=== PATIENT | female | born 1955 | race Caucasian/White ===

== ENCOUNTER 2017-05-22 09:59 | Inpatient (IN) | payer MEDICARE ==
[2017-05-22 10:20] VITALS: BMI 30.4
[2017-05-22] MEDS ORDERED: Sodium Chloride 0.9% 1,000 ML IV ONE ×2 (11:00→12:40)
--- NOTE | 2017-05-22 11:25 | C.PDOC ---
History Of Present Illness 61 year old female, with PMHx of diabetes, presents to ED for evaluation of not feeling well for the last 2 days. (+)generalized weakness (+) subjective fever ( +)chills (+)dysuria (+)urinary frequency (+)dizziness. Pt notes that two days ago she "convulsed" for 10 minutes. No LOC, no seizure like activity. Notes she was shaking and then fell asleep. Pt admits to not taking her medications for the past 2 days. Otherwise, denies shortness of breath, abdominal pain, or chest pain. Time Seen by Provider: 05/22/17 10:36 Chief Complaint (Nursing): Weakness/Neurological Deficit History Per: Patient, Family History/Exam Limitations: no limitations Onset/Duration Of Symptoms: Days (2) Current Symptoms Are (Timing): Still Present Additional History Per: Patient Past Medical History Reviewed: Historical Data, Nursing Documentation, Vital Signs Vital Signs: Last Vital Signs Temp 99.6 F 05/22/17 17:15 Pulse 97 H 05/22/17 17:15 Resp 20 05/22/17 17:15 BP 111/71 05/22/17 17:15 Pulse Ox 95 05/22/17 17:15 Surgical History: Cholecystectomy Family History: States: Unknown Family Hx - Social History Hx Alcohol Use: No Hx Substance Use: No - Immunization History Hx Tetanus Toxoid Vaccination: No Hx Influenza Vaccination: No Hx Pneumococcal Vaccination: No Review Of Systems Except As Marked, All Systems Reviewed And Found Negative. Constitutional: Positive for: Fever, Chills, Sweats, Weakness Cardiovascular: Negative for: Chest Pain Respiratory: Negative for: Shortness of Breath Gastrointestinal: Negative for: Abdominal Pain Genitourinary: Positive for: Dysuria, Frequency. Negative for: Hematuria Neurological: Positive for: Dizziness. Negative for: Weakness, Numbness, Headache Physical Exam - Physical Exam Appears: Non-toxic, No Acute Distress, Other (ill appearing) Skin: Normal Color, Warm, Dry Head: Atraumatic, Normacephalic Eye(s): bilateral: Normal Inspection, EOMI Nose: Normal Oral Mucosa: Dry Throat: Normal, No Erythema, No Exudate Neck: Normal ROM, Supple Chest: Symmetrical Cardiovascular: Rhythm Regular, No Murmur Respiratory: Decreased Breath Sounds, No Rales, No Rhonchi, No Wheezing Gastrointestinal/Abdominal: Soft, No Tenderness Extremity: Normal ROM Neurological/Psych: Oriented x3, Normal Speech ED Course And Treatment - Laboratory Results Result Diagrams: 05/22/17 11:49 05/22/17 16:15 ECG: Interpreted By Me, Viewed By Me ECG Rhythm: Sinus Rhythm Interpretation Of ECG: No ST wave elevation Rate From EC (bpm) O2 Sat by Pulse Oximetry: 92 - CT Scan/US Head CT Other Rad Studies (CT/US): Read By Radiologist, Radiology Report Reviewed CT/US Interpretation: Accession No. : [id number]. Patient Name / ID : YURI FRENCH / [id number]. Exam Date : 05/22/2017 14:46:01 ( Approved ). Study Comment : Sex / Age : F / [id number]. Creator : Joshua Humphries MD. Dictator : Green Jobs Trainer : Marble Setter Helper : Joshua Humphries MD. Approver2 : Report Date : 05/22/2017 15:41:49. My Comment : . PROCEDURE: CT HEAD WITHOUT CONTRAST. HISTORY: pain. COMPARISON: None available. TECHNIQUE: Axial computed tomography images were obtained through the head/brain without intravenous contrast. Radiation dose: Total exam DLP = 1294.1 mGy-cm. This CT exam was performed using one or more of the following dose reduction techniques: Automated exposure control, adjustment of the mA and/or kV according to patient size, and/or use of iterative reconstruction technique. FINDINGS: HEMORRHAGE: No acute parenchymal, subarachnoid or extra-axial hemorrhage. BRAIN: Moderate diffuse/ confluent chronic white matter ischemic changes seen extending peripherally into the deep and subcortical white matter both cerebral hemispheres. There is also some extension of these changes into the white matter tracts of both basal ganglia. Prominent appearing pineal gland (measuring nearly 7.4 mm in AP dimension) with slight irregular peripheral borders and central low attenuation possibly representing cystic component. Follow-up of non emergent pre and post-contrast MRI of the brain images. VENTRICLES: Moderate to significant dilatation of the ventricular system; findings may be secondary to central volume loss however possibility of chronic compensated communicating type obstructive hydrocephalus to be excluded. CALVARIUM: There are no acute calvarial fractures. PARANASAL SINUSES: Minor mucosal thickening seen within a few ethmoid air cells and left chamber sphenoid. . MASTOID AIR CELLS: Unremarkable as visualized. No inflammatory changes. OTHER FINDINGS: None. IMPRESSION: No acute intracranial hemorrhage. Moderate chronic white matter ischemic changes with extension into the white matter tracts of both basal nuclei. Moderate to significant ventricular dilatation possibly due to central volume however possibility of chronic compensated communicating type obstructive hydrocephalus to be excluded. Prominent appearing pineal gland with slight irregular peripheral borders. Followup nonemergent pre and post-contrast MRI of the brain could be performed for further evaluation note these findings were discussed with emergency room PILAR Luna at approximately 3:36 p.m. with written down and read back verification. Progress Note: Blood work, head CT, UA, CXR, EKG ordered and reviewed. Patient was given Motrin PO, and IV fluids. Hypoxia noted. Pt denies cough and states she is not SOB. Pt notes that she has no h/o hypoxia, nonsmoker, no h/o copd. CTA not able to be ordered secondary to renal function. Lovenox ordered prophylactically. NAsal cannula- pt 96%. Decreased renal function noted. Pt denies any h.o of kidney problems except "kidney infections.". Case discussed with Dr. Mccullough who evaluated pt at bedside and labs and agreed with plan and treatment. Case discussed with Dr. Charles Jones who agrees upon admission. Disposition - Disposition Disposition: HOSPITALIZED Disposition Time: 17:00 Condition: STABLE - Clinical Impression Clinical Impression: Hypoxia, Pyelonephritis, Dehydration - PA / TRIM CREW SUPERVISOR / Resident Statement MD/DO has reviewed & agrees with the documentation as recorded. - Scribe Statement The provider has reviewed the documentation as recorded by the Scribe Tristen Jones All medical record entries made by the Robb were at my direction and personally dictated by me. I have reviewed the chart and agree that the record accurately reflects my personal performance of the history, physical exam, medical decision making, and the department course for this patient. I have also personally directed, reviewed, and agree with the discharge instructions and disposition.
[2017-05-22] MEDS ORDERED: Sodium Chloride 0.9% 1,000 ML ONE ×2 (11:51→14:04)
[2017-05-22 11:55] LABS: BASO # 0.1 K/uL (0.0-0.2); BASO % 0.8 % (0.0-2.0); HEMATOCRIT 34.3 % (34.0-47.0); LYMPH # 0.9 K/uL (1.0-4.3); LYMPH % 6.4 % (20.0-40.0); MEAN CELL VOLUME 79.1 fL (81.0-99.0); MEAN CORPUSCULAR HEMOGLOBIN 26.1 pg (27.0-31.0); MEAN CORPUSCULAR HGB CONC 32.9 g/dL (33.0-37.0); MEAN PLATELET VOLUME 7.5 fL (7.2-11.7); MONO # 0.7 K/uL (0.0-0.8); MONO % 5.1 % (0.0-10.0); PLATELET COUNT 208 K/uL (130-400); RED CELL DISTRIBUTION WIDTH 15.3 % (11.5-14.5)
[2017-05-22 11:56] LABS: VENOUS BLOOD GAS BASE EXCESS -2.6 mmol/L (0.0-2.0); VENOUS BLOOD GAS PCO2 29 mmHg (40-60); VENOUS BLOOD PH 7.45 (7.32-7.43)
[2017-05-22 12:00] LABS: INR 1.3
[2017-05-22 12:12] LABS: CHLORIDE 99 mmol/L (98-107); POTASSIUM 3.6 mmol/L (3.6-5.2); SODIUM 129 mmol/L (132-148)
[2017-05-22 12:14] LABS: AST/SGOT 31 U/L (14-36); BILIRUBIN,TOTAL 0.6 mg/dL (0.2-1.3); CARBON DIOXIDE 19 mmol/L (22-30); GFR AFRICAN-AMERICAN 46
[2017-05-22 12:15] LABS: ALKALINE PHOSPHATASE 116 U/L (38-126); ALT/SGPT 42 U/L (9-52); BLOOD UREA NITROGEN 25 mg/dL (7-17); GLUCOSE,RANDOM 307 mg/dL (65-105)
[2017-05-22 12:20] LABS: BASOPHIL 1 % (0-2); NEUTROPHIL 86 % (50-75); TOTAL CELLS COUNTED 100
[2017-05-22 13:57] LABS: RBC URINE 21 /hpf (0-3); URINE BACTERIA OCC (<OCC); URINE BILIRUBIN NEGATIVE (NEGATIVE); URINE BLOOD 2+ (NEGATIVE); URINE COLOR Yellow (YELLOW); URINE GLUCOSE (UA) 2+ mg/dL (Normal); URINE KETONE NEGATIVE (NEGATIVE); URINE LEUKOCYTE ESTERASE 3+ Leu/uL (Negative); URINE PROTEIN 2+ mg/dL (NEGATIVE); URINE UROBILINOGEN NORMAL mg/dL (0.2-1.0); WBC URINE 398 /hpf (0-5)
[2017-05-22] MEDS ORDERED: Ciprofloxacin 400mg/200ml D5W 400 MG/200 ML BAG IVPB ONE (14:14)
[2017-05-22] MEDS ORDERED: Ciprofloxacin 400mg/200ml D5W 400 MG/200 ML BAG IV SCH (14:15)
[2017-05-22] MEDS ORDERED: Ciprofloxacin 400mg/200ml D5W 400 MG/200 ML BAG IV ONE (14:15)
--- NOTE | 2017-05-22 14:26 | RAD ---
HISTORY: Sepsis Patient COMPARISON: No prior. FINDINGS: LUNGS: No acute infiltrate identified bilaterally. Inspiratory volume appears limited. PLEURA: No significant pleural effusion identified, no pneumothorax apparent. CARDIOVASCULAR: Cardiomegaly is not excluded. No pulmonary vascular derangement. OSSEOUS STRUCTURES: No significant abnormalities. VISUALIZED UPPER ABDOMEN: Normal. OTHER FINDINGS: None. IMPRESSION: Limited inspiratory volume. No acute infiltrate pleural effusion or pneumothorax identified. Prominent cardiac silhouette without pulmonary vascular derangement.
--- NOTE | 2017-05-22 15:45 | CT ---
PROCEDURE: CT HEAD WITHOUT CONTRAST. HISTORY: pain COMPARISON: None available. TECHNIQUE: Axial computed tomography images were obtained through the head/brain without intravenous contrast. Radiation dose: Total exam DLP = 1294.1 mGy-cm. This CT exam was performed using one or more of the following dose reduction techniques: Automated exposure control, adjustment of the mA and/or kV according to patient size, and/or use of iterative reconstruction technique. FINDINGS: HEMORRHAGE: No acute parenchymal, subarachnoid or extra-axial hemorrhage. BRAIN: Moderate diffuse/ confluent chronic white matter ischemic changes seen extending peripherally into the deep and subcortical white matter both cerebral hemispheres. There is also some extension of these changes into the white matter tracts of both basal ganglia. Prominent appearing pineal gland (measuring nearly 7.4 mm in AP dimension) with slight irregular peripheral borders and central low attenuation possibly representing cystic component. Follow-up of non emergent pre and post-contrast MRI of the brain images. VENTRICLES: Moderate to significant dilatation of the ventricular system; findings may be secondary to central volume loss however possibility of chronic compensated communicating type obstructive hydrocephalus to be excluded. CALVARIUM: There are no acute calvarial fractures. PARANASAL SINUSES: Minor mucosal thickening seen within a few ethmoid air cells and left chamber sphenoid. . MASTOID AIR CELLS: Unremarkable as visualized. No inflammatory changes. OTHER FINDINGS: None. IMPRESSION: No acute intracranial hemorrhage. Moderate chronic white matter ischemic changes with extension into the white matter tracts of both basal nuclei. Moderate to significant ventricular dilatation possibly due to central volume however possibility of chronic compensated communicating type obstructive hydrocephalus to be excluded. Prominent appearing pineal gland with slight irregular peripheral borders. Followup nonemergent pre and post-contrast MRI of the brain could be performed for further evaluation note these findings were discussed with emergency room PILAR Luna at approximately 3:36 p.m. with written down and read back verification.
[2017-05-22 16:31] LABS: POTASSIUM 4.1 mmol/L (3.6-5.2)
[2017-05-22 16:34] LABS: ALB/GLOB RATIO 0.9 (1.0-2.1); BILIRUBIN,TOTAL 0.4 mg/dL (0.2-1.3); CALCIUM 7.5 mg/dl (8.6-10.4); TOTAL PROTEIN 6.2 g/dL (6.3-8.3)
[2017-05-22] MEDS ORDERED: Enoxaparin 80 mg Syringe SC STA (16:56)
[2017-05-22] MEDS ORDERED: Enoxaparin 100 mg Syringe SC STA (17:03)
[2017-05-22 17:12] LABS: ABG ALLEN TEST POS; ARTERIAL BLOOD HGB O2 SAT 94.7 % (95.0-98.0); CARBOXYHEMOGLOBIN 2.4 % (0.5-1.5); DRAW SITE RRA; HHB 1.9 % (0.0-5.0)
[2017-05-22] MEDS ORDERED: Alum-Mag Hydrox-Simethicone Susp (30 mL) PO STA (17:38)
[2017-05-22] MEDS ORDERED: Aluminum Hydroxide/Magnesium Hydroxide Susp (30 mL) ONE (17:47)
[2017-05-22] MEDS: Sodium Chloride 0.9% 1,000 ML IV SCH (20:45)
[2017-05-22] MEDS ORDERED: Cefepime IV 1 gm in Dextrose 1 GM/50 ML BAG IVPB SCH (22:00)
[2017-05-22] MEDS: Aztreonam 1 GM in Sodium Chloride 0.9% 100 ML IVPB SCH (22:37)
[2017-05-22] MEDS: (Novolog) Insulin Aspart, Recombinant 100 u/ml 10 ml vial SC SCH (22:38)
--- NOTE | 2017-05-22 23:42 | CP.PCM.HP ---
Past Patient History - Past Social History Smoking Status: Former Smoker - RENAL Hx Pyelonephritis: Yes - ENDOCRINE/METABOLIC Hx Diabetes Mellitus Type 2: Yes - MUSCULOSKELETAL/RHEUMATOLOGICAL Hx Falls: No - PSYCHIATRIC Hx Substance Use: No - SURGICAL HISTORY Hx Cholecystectomy: Yes - ANESTHESIA Hx Anesthesia: Yes Hx Anesthesia Reactions: No Hx Malignant Hyperthermia: No Has any member of the family had a problem w/ anesthesia?: No Meds Allergies/Adverse Reactions: Allergies Allergy/AdvReac Type Severity Reaction Status Date / Time Penicillins Allergy Severe RASH Verified 05/22/17 10:17 Results - Vital Signs Recent Vital Signs: Last Vital Signs Temp 98.0 F 05/22/17 20:00 Pulse 86 05/22/17 20:00 Resp 20 05/22/17 20:00 BP 108/66 05/22/17 20:00 Pulse Ox 96 05/22/17 20:00 - Labs Result Diagrams: 05/22/17 11:49 05/22/17 16:15 Labs: Laboratory Results - last 24 hr 05/22/17 05/22/17 05/22/17 11:49 11:49 11:49 WBC 14.0 H RBC 4.34 Hgb 11.3 Hct 34.3 MCV 79.1 L MCH 26.1 L MCHC 32.9 L RDW 15.3 H Plt Count 208 MPV 7.5 Neut % (Auto) 87.7 H Lymph % (Auto) 6.4 L [place] % (Auto) 5.1 Eos % (Auto) 0.0 Baso % (Auto) 0.8 Neut # 12.2 H Lymph # 0.9 L [place] # 0.7 Eos # 0.0 Baso # 0.1 Neutrophils % (Manual) 86 H Band Neutrophils % 5 H Lymphocytes % (Manual) 6 L Monocytes % (Manual) 2 Basophils % (Manual) 1 Platelet Estimate Normal Hypochromasia (manual) Slight Poikilocytosis (manual Slight PT 14.7 H INR 1.3 APTT 32 Puncture Site pCO2 pO2 HCO3 ABG pH ABG Total CO2 ABG O2 Saturation ABG Base Excess ABG Hemoglobin ABG Carboxyhemoglobin POC ABG HHb (Measured) ABG Methemoglobin Edmund Test VBG pH VBG pCO2 VBG HCO3 VBG Total CO2 VBG O2 Sat (Calc) VBG Base Excess VBG Potassium A-a O2 Difference Respiratory Index Hgb O2 Saturation Glucose Lactate Liter Flow FiO2 Sodium 129 L Potassium 3.6 Chloride 99 Carbon Dioxide 19 L Anion Gap 15 BUN 25 H Creatinine 1.4 H Est GFR ( Amer) 46 Est GFR (Non-Af Amer) 38 POC Glucose (mg/dL) Random Glucose 307 H Calcium 8.0 L Total Bilirubin 0.6 AST 31 ALT 42 Alkaline Phosphatase 116 Total Protein 7.0 Albumin 3.5 Globulin 3.5 Albumin/Globulin Ratio 1.0 Venous Blood Potassium Urine Color Urine Clarity Urine pH Ur Specific [place] Urine Protein Urine Glucose (UA) Urine Ketones Urine Blood Urine Nitrate Urine Bilirubin Urine Urobilinogen Ur Leukocyte Esterase Urine WBC (Auto) Urine RBC (Auto) Ur Squamous Epith Cells Urine Bacteria Serum Ketones Negative 05/22/17 05/22/17 05/22/17 11:50 13:45 16:15 WBC RBC Hgb Hct MCV MCH MCHC RDW Plt Count MPV Neut % (Auto) Lymph % (Auto) [place] % (Auto) Eos % (Auto) Baso % (Auto) Neut # Lymph # [place] # Eos # Baso # Neutrophils % (Manual) Band Neutrophils % Lymphocytes % (Manual) Monocytes % (Manual) Basophils % (Manual) Platelet Estimate Hypochromasia (manual) Poikilocytosis (manual PT INR APTT Puncture Site pCO2 pO2 51 HCO3 ABG pH ABG Total CO2 ABG O2 Saturation ABG Base Excess ABG Hemoglobin ABG Carboxyhemoglobin POC ABG HHb (Measured) ABG Methemoglobin Edmund Test VBG pH 7.45 H VBG pCO2 29 L VBG HCO3 22.6 VBG Total CO2 21.1 L VBG O2 Sat (Calc) 93.8 H VBG Base Excess -2.6 L VBG Potassium 3.4 L A-a O2 Difference Respiratory Index Hgb O2 Saturation Glucose 323 H Lactate 1.5 Liter Flow FiO2 Sodium 134.0 132 Potassium 4.1 Chloride 103.0 100 Carbon Dioxide 23 Anion Gap 13 BUN 25 H Creatinine 1.5 H Est GFR ( Amer) 43 Est GFR (Non-Af Amer) 35 POC Glucose (mg/dL) Random Glucose 196 H Calcium 7.5 L Total Bilirubin 0.4 AST 24 ALT 37 Alkaline Phosphatase 91 Total Protein 6.2 L Albumin 3.0 L Globulin 3.2 Albumin/Globulin Ratio 0.9 L Venous Blood Potassium 3.4 L Urine Color Yellow Urine Clarity Hazy Urine pH 5.0 Ur Specific [place] 1.016 Urine Protein 2+ H Urine Glucose (UA) 2+ H Urine Ketones Negative Urine Blood 2+ H Urine Nitrate Positive H Urine Bilirubin Negative Urine Urobilinogen Normal Ur Leukocyte Esterase 3+ H Urine WBC (Auto) 398 H Urine RBC (Auto) 21 H Ur Squamous Epith Cells 10 H Urine Bacteria Occ H Serum Ketones 05/22/17 05/22/17 17:08 22:14 WBC RBC Hgb Hct MCV MCH MCHC RDW Plt Count MPV Neut % (Auto) Lymph % (Auto) [place] % (Auto) Eos % (Auto) Baso % (Auto) Neut # Lymph # [place] # Eos # Baso # Neutrophils % (Manual) Band Neutrophils % Lymphocytes % (Manual) Monocytes % (Manual) Basophils % (Manual) Platelet Estimate Hypochromasia (manual) Poikilocytosis (manual PT INR APTT Puncture Site Rra pCO2 31 L pO2 67 L HCO3 23.4 ABG pH 7.45 ABG Total CO2 22.5 ABG O2 Saturation 98.0 ABG Base Excess -1.9 ABG Hemoglobin 9.9 L ABG Carboxyhemoglobin 2.4 H POC ABG HHb (Measured) 1.9 ABG Methemoglobin 1.0 Edmund Test Pos VBG pH VBG pCO2 VBG HCO3 VBG Total CO2 VBG O2 Sat (Calc) VBG Base Excess VBG Potassium A-a O2 Difference 44.0 Respiratory Index 0.7 Hgb O2 Saturation 94.7 L Glucose Lactate Liter Flow 0 FiO2 21.0 Sodium Potassium Chloride Carbon Dioxide Anion Gap BUN Creatinine Est GFR ( Amer) Est GFR (Non-Af Amer) POC Glucose (mg/dL) 255 H Random Glucose Calcium Total Bilirubin AST ALT Alkaline Phosphatase Total Protein Albumin Globulin Albumin/Globulin Ratio Venous Blood Potassium Urine Color Urine Clarity Urine pH Ur Specific [place] Urine Protein Urine Glucose (UA) Urine Ketones Urine Blood Urine Nitrate Urine Bilirubin Urine Urobilinogen Ur Leukocyte Esterase Urine WBC (Auto) Urine RBC (Auto) Ur Squamous Epith Cells Urine Bacteria Serum Ketones
[2017-05-23] MEDS: Aztreonam 1 GM in Sodium Chloride 0.9% 100 ML IVPB SCH ×3 (05:30→22:26)
[2017-05-23] MEDS: (Novolog) Insulin Aspart, Recombinant 100 u/ml 10 ml vial SC SCH ×4 (08:28→22:27)
[2017-05-23] MEDS: Pantoprazole 40 mg EC Tab PO SCH (09:40)
[2017-05-23] MEDS ORDERED: Enoxaparin 100 mg Syringe SC SCH (10:00)
[2017-05-23] MEDS ORDERED: Gentamicin 80 mg in 0.9% NS 80 MG/100 ML BAG IVPB ONE (13:05)
--- NOTE | 2017-05-23 14:52 | CP.PCM.PN ---
Subjective - Date & Time of Evaluation Date of Evaluation: 05/23/17 Time of Evaluation: 08:40 - Subjective Subjective: clinically same Objective - Vital Signs/Intake and Output Vital Signs (last 24 hours): Temp Pulse Resp BP Pulse Ox 98.1 F 92 H 20 139/75 98 05/23/17 08:00 05/23/17 08:00 05/23/17 08:00 05/23/17 08:00 05/23/17 08:00 Intake and Output: 05/23/17 05/23/17 06:59 18:59 Intake Total 950 1000 Balance 950 1000 - Medications Medications: Current Medications Acetaminophen (Tylenol 325mg Tab) 650 mg PO Q4 PRN PRN Reason: Fever >100.4 F Enoxaparin Sodium (Lovenox) 90 mg SC DAILY [facility] Last Admin: 05/23/17 09:40 Dose: 90 mg Aztreonam 1 gm/ Sodium (Chloride) 100 mls @ 100 mls/hr IVPB Q8H [facility] Last Admin: 05/23/17 14:49 Dose: 100 mls/hr Sodium Chloride (Sodium Chloride 0.9%) 1,000 mls @ 50 mls/hr IV .Q20H [facility] Last Admin: 05/22/17 20:45 Dose: 50 mls/hr Insulin Aspart (Novolog) 0 unit SC ACHS [facility] PRN Reason: Protocol Last Admin: 05/23/17 12:30 Dose: 4 unit Pantoprazole Sodium (Protonix Ec Tab) 40 mg PO DAILY [facility] Last Admin: 05/23/17 09:40 Dose: 40 mg Pneumococcal Polyvalent Vaccine (Pneumovax 23 Vaccine) 0.5 ml IM .ONCE ONE Stop: 05/24/17 10:01 - Labs Labs: 05/22/17 11:49 05/22/17 16:15 PT 14.7 SECONDS (9.7-12.2) H 05/22/17 11:49 INR 1.3 05/22/17 11:49 APTT 32 SECONDS (21-34) 05/22/17 11:49 Assessment and Plan - Assessment and Plan (Free Text) Plan: IV antibiotic continue ID consult as ordered the patient has gram-negative bacilli in the blood ID is pending Continue IV antibiotic Spoke with the patient at length about low oxygenation of around 92-93% last night patient to be seen by pulmonary for possible VQ scan clinically does not appear to have a pulmonary embolism Continue Lovenox Continue IV antibiotic Awaiting identification of organism and culture sensitivity
--- NOTE | 2017-05-23 15:44 | NM ---
EXAM: NM Lung Perfusion and Ventilation Scan EXAM DATE/TIME: 05/23/2017 1:44 PM CLINICAL HISTORY: 61 years old, female; Signs and symptoms; Shortness of breath; Additional info: SOB, R/O pe TECHNIQUE: Nuclear Medicine ventilation and perfusion images of the lungs were obtained in multiple projections following inhalation of 6.8 mCi xenon-133 and injection of 31 mCi Tc99m MAA. COMPARISON: No relevant prior studies available. FINDINGS: Ventilation: Unremarkable. No ventilation defects. No abnormal air trapping. Perfusion: Unremarkable. No segmental or subsegmental perfusion defects. IMPRESSION: No evidence of pulmonary embolism.
--- NOTE | 2017-05-23 16:25 | CP.PCM.CON ---
History of Present Illness - History of Present Illness History of Present Illness: reason for consultation: hypoxemia Patient is 61-year-old female with history of obstructive sleep apnea, long history of smoking/COPD, diabetes who presented to emergency room complaining of generalized weakness, fever/chills, urinary frequency and dysuria. Patient started on IV antibiotics for pyelonephritis. Denies shortness of breath, denies cough, denies chest pain. Patient has history off obstructive sleep apnea , but does not use CPAP at night. Complaining of nocturnal snoring and excessive sleepiness during the daytime Review of Systems - Review of Systems All systems: reviewed and no additional remarkable complaints except (nocturnal snoring, dysuria and generalized weakness) Past Patient History - Past Social History Smoking Status: Former Smoker - RENAL Hx Pyelonephritis: Yes - ENDOCRINE/METABOLIC Hx Diabetes Mellitus Type 2: Yes - MUSCULOSKELETAL/RHEUMATOLOGICAL Hx Falls: No - PSYCHIATRIC Hx Substance Use: No - SURGICAL HISTORY Hx Cholecystectomy: Yes - ANESTHESIA Hx Anesthesia: Yes Hx Anesthesia Reactions: No Hx Malignant Hyperthermia: No Has any member of the family had a problem w/ anesthesia?: No Meds Allergies/Adverse Reactions: Allergies Allergy/AdvReac Type Severity Reaction Status Date / Time Penicillins Allergy Severe RASH Verified 05/22/17 10:17 - Medications Medications: Current Medications Acetaminophen (Tylenol 325mg Tab) 650 mg PO Q4 PRN PRN Reason: Fever >100.4 F Enoxaparin Sodium (Lovenox) 90 mg SC DAILY [facility] Last Admin: 05/23/17 09:40 Dose: 90 mg Aztreonam 1 gm/ Sodium (Chloride) 100 mls @ 100 mls/hr IVPB Q8H [facility] Last Admin: 05/23/17 14:49 Dose: 100 mls/hr Sodium Chloride (Sodium Chloride 0.9%) 1,000 mls @ 50 mls/hr IV .Q20H [facility] Last Admin: 05/22/17 20:45 Dose: 50 mls/hr Insulin Aspart (Novolog) 0 unit SC ACHS [facility] PRN Reason: Protocol Last Admin: 05/23/17 12:30 Dose: 4 unit Pantoprazole Sodium (Protonix Ec Tab) 40 mg PO DAILY [facility] Last Admin: 05/23/17 09:40 Dose: 40 mg Pneumococcal Polyvalent Vaccine (Pneumovax 23 Vaccine) 0.5 ml IM .ONCE ONE Stop: 05/24/17 10:01 Physical Exam - Head Exam Head Exam: ATRAUMATIC, NORMOCEPHALIC - Eye Exam Eye Exam: Normal appearance - ENT Exam ENT Exam: Mucous Membranes Moist - Neck Exam Neck exam: Positive for: Normal Inspection - Respiratory Exam Respiratory Exam: Clear to Auscultation Bilateral - Cardiovascular Exam Cardiovascular Exam: REGULAR RHYTHM - GI/Abdominal Exam GI & Abdominal Exam: Normal Bowel Sounds - Extremities Exam Extremities exam: Positive for: normal inspection - Neurological Exam Neurological exam: Alert, Oriented x3 Results - Vital Signs Recent Vital Signs: Last Vital Signs Temp 98.1 F 05/23/17 08:00 Pulse 92 H 05/23/17 08:00 Resp 20 05/23/17 08:00 BP 139/75 05/23/17 08:00 Pulse Ox 98 05/23/17 08:00 - Labs Result Diagrams: 05/22/17 11:49 05/22/17 16:15 Labs: Laboratory Results - last 24 hr 05/22/17 05/22/17 05/22/17 16:15 17:08 22:14 Puncture Site Rra pCO2 31 L pO2 67 L HCO3 23.4 ABG pH 7.45 ABG Total CO2 22.5 ABG O2 Saturation 98.0 ABG Base Excess -1.9 ABG Hemoglobin 9.9 L ABG Carboxyhemoglobin 2.4 H POC ABG HHb (Measured) 1.9 ABG Methemoglobin 1.0 Edmund Test Pos A-a O2 Difference 44.0 Respiratory Index 0.7 Hgb O2 Saturation 94.7 L Liter Flow 0 FiO2 21.0 Sodium 132 Potassium 4.1 Chloride 100 Carbon Dioxide 23 Anion Gap 13 BUN 25 H Creatinine 1.5 H Est GFR ( Amer) 43 Est GFR (Non-Af Amer) 35 POC Glucose (mg/dL) 255 H Random Glucose 196 H Calcium 7.5 L Total Bilirubin 0.4 AST 24 ALT 37 Alkaline Phosphatase 91 Total Protein 6.2 L Albumin 3.0 L Globulin 3.2 Albumin/Globulin Ratio 0.9 L 05/23/17 05/23/17 05/23/17 07:40 09:54 11:45 Puncture Site pCO2 pO2 HCO3 ABG pH ABG Total CO2 ABG O2 Saturation ABG Base Excess ABG Hemoglobin ABG Carboxyhemoglobin POC ABG HHb (Measured) ABG Methemoglobin Edmund Test A-a O2 Difference Respiratory Index Hgb O2 Saturation Liter Flow FiO2 Sodium Potassium Chloride Carbon Dioxide Anion Gap BUN Creatinine Est GFR ( Amer) Est GFR (Non-Af Amer) POC Glucose (mg/dL) 202 H 339 H 268 H Random Glucose Calcium Total Bilirubin AST ALT Alkaline Phosphatase Total Protein Albumin Globulin Albumin/Globulin Ratio Assessment & Plan (1) BECKY and COPD overlap syndrome Status: Acute Comment: patient with long history of smoking, COPD and obstructive sleep apnea is the reason for hypoxemia. Patient noncompliant with medicines. Start nebulizer treatment. CPAP at night. Continue antibiotics for pyelonephrit (2) Pyelonephritis Status: Acute
[2017-05-23] MEDS: Sodium Chloride 0.9% 1,000 ML IV SCH (16:50)
[2017-05-23] MEDS: Albuterol-Ipratrop 3 mg / 0.5 (3 ml) UD INH SCH (20:05)
[2017-05-23] MEDS ORDERED: Cefepime 1 GM in Sodium Chloride 0.9% 50 ML IVPB SCH (22:00)
[2017-05-24] MEDS: Albuterol-Ipratrop 3 mg / 0.5 (3 ml) UD INH SCH ×4 (02:07→20:24)
[2017-05-24] MEDS: Sodium Chloride 0.9% 1,000 ML IV SCH ×2 (02:55→13:56)
[2017-05-24] MEDS: Aztreonam 1 GM in Sodium Chloride 0.9% 100 ML IVPB SCH ×3 (06:25→21:26)
[2017-05-24 07:58] LABS: BASO % 0.5 % (0.0-2.0); EOS # 0.1 K/uL (0.0-0.7); EOS % 1.2 % (0.0-4.0); HEMATOCRIT 29.9 % (34.0-47.0); LYMPH # 0.7 K/uL (1.0-4.3); LYMPH % 14.2 % (20.0-40.0); MEAN CELL VOLUME 78.6 fL (81.0-99.0); MEAN CORPUSCULAR HEMOGLOBIN 26.5 pg (27.0-31.0); MEAN CORPUSCULAR HGB CONC 33.7 g/dL (33.0-37.0); MEAN PLATELET VOLUME 8.1 fL (7.2-11.7); MONO # 0.4 K/uL (0.0-0.8); MONO % 8.7 % (0.0-10.0); RED CELL DISTRIBUTION WIDTH 15.4 % (11.5-14.5)
[2017-05-24 08:03] LABS: WHITE BLOOD COUNT 4.9 K/uL (4.8-10.8)
[2017-05-24 08:21] LABS: POTASSIUM 4.3 mmol/L (3.6-5.2)
[2017-05-24 08:25] LABS: CALCIUM 7.8 mg/dl (8.6-10.4)
[2017-05-24] MEDS: (Novolog) Insulin Aspart, Recombinant 100 u/ml 10 ml vial SC SCH ×4 (08:30→21:56)
[2017-05-24] MEDS ORDERED: Pneumococcal 23-Valent Vaccine IM ONE (10:00)
[2017-05-24] MEDS ORDERED: Influenza Vaccine 60 mcg/0.5 mL SYR (4YR UP) IM ONE (10:00)
[2017-05-24] MEDS: Pantoprazole 40 mg EC Tab PO SCH (10:38)
[2017-05-24] MEDS: Enoxaparin 40 mg Syringe SC SCH (10:38)
--- NOTE | 2017-05-24 15:37 | CP.PCM.CON ---
History of Present Illness - History of Present Illness History of Present Illness: 61 year old female, with PMHx of diabetes, presents to ED for evaluation of not feeling well for the last 2 days. (+)generalized weakness (+) subjective fever ( +)chills (+)dysuria (+)urinary frequency (+)dizziness. Pt notes that two days ago she "convulsed" for 10 minutes. No LOC, no seizure like activity. Notes she was shaking and then fell asleep. Pt admits to not taking her medications for the past 2 days. Otherwise, denies shortness of breath, abdominal pain, or chest pain. referred for ID eval odf urosepsis PCN allergy PMH - DM COPD DEPRESSION BECKY SH- Cholecystectomy Review of Systems - Constitutional Constitutional: As Per HPI, Chills, Fever - EENT Eyes: absent: As Per HPI, Blind Spots, Blurred Vision, Change in Vision, Decreased Night Vision, Diplopia, Discharge, Dry Eye, Exophthalmos, Floaters, Irritation, Itchy Eyes, Loss of Peripheral Vision, Pain, Photophobia, Requires Corrective Lenses, Sees Flashes, Spots in Vision, Tunnel Vision, Other Visual Disturbances, Loss of Vision, Other Ears: absent: As Per HPI, Decreased Hearing, Ear Discharge, Ear Pain, Tinnitus, Abnormal Hearing, Disequilibrium, Dizziness, Other Nose/Mouth/Throat: absent: As Per HPI, Epistaxis, Nasal Congestion, Nasal Discharge, Nasal Obstruction, Nasal Trauma, Nose Pain, Post Nasal Drip, Sinus Pain, Sinus Pressure, Bleeding Gums, Change in Voice, Dental Pain, Dry Mouth, Dysphagia, Halitosis, Hoarsness, Lip Swelling, Mouth Lesions, Mouth Pain, Odynophagia, Sore Throat, Throat Swelling, Tongue Swelling, Facial Pain, Neck Pain, Neck Mass, Other - Cardiovascular Cardiovascular: absent: As Per HPI, Acrocyanosis, Chest Pain, Chest Pain at Rest , Chest Pain with Activity, Claudication, Diaphoresis, Dyspnea, Dyspnea on Exertion, Edema, Irregular Heart Rhythm, Pain Radiating to Arm/Neck/Jaw, Leg Edema, Leg Ulcers, Lightheadedness, Orthopnea, Palpitations, Paroxysmal Nocturnal Dyspnea, Pedal Edema, Radiating Pain, Rapid Heart Rate, Slow Heart Rate, Syncope, Other - Respiratory Respiratory: As Per HPI - Gastrointestinal Gastrointestinal: absent: As Per HPI, Abdominal Pain, Belching, Bloating, Change in Bowel Habits, Change in Stool Character, Coffee Ground Emesis, Constipation, Cramping, Diarrhea, Dyspepsia, Dysphagia, Early Satiety, Excessive Flatus, Fecal Incontinence, Heartburn, Hematemesis, Hematochezia, Loose Stools, Melena, Nausea, Odynophagia, Temesmus, Vomiting, Other - Genitourinary Genitourinary: As Per HPI - Reproductive: Female Reproductive:Female: absent: As Per HPI, Amenorrhea, Amenorrhea/ Control, Currently Menstual, Cycle <21 Days, Cycle >35 Days, Cycle Variable, Menses 1-7 Days, Menses >/= 8 Days, Menses Variable, Cycle > 4 Weeks Between, No Menses for 6 Months, Heavy Menses, Light Menses, Normal Menses, Spotting Between Cycles , S/P Hysterectomy, Menopausal, Post Menopausal, Premenarche, Abnormal Vaginal Bleeding, Dysmenorrhea, Dyspareunia, Genital Lesions, Genital Pruritis, Pelvic Pain, Prolapse Symptoms, Sexual Dysfunction, Vaginal Discharge, Vaginal Dryness , Vaginal Odor, Vaginal Pruritis, Other - Menstruation Menstruation: absent: As Per HPI, Amenorrhea, Amenorrhea/ Control, Currently Menstual, Cycle <21 Days, Cycle >35 Days, Cycle Variable, Menses 1-7 Days, Menses >/= 8 Days, Menses Variable, Cycle > 4 Weeks Between, No Menses for 6 Months, Heavy Menses, Light Menses, Normal Menses, Spotting Between Cycles , S/P Hysterectomy, Menopausal, Post Menopausal, Premenarche, Abnormal Vaginal Bleeding, Dysmenorrhea, Other - Musculoskeletal Musculoskeletal: absent: As Per HPI, Abnormal Gait, Arthralgias, Atrophy, Back Pain, Deformity, Joint Swelling, Limited Range of Motion, Loss of Height, Muscle Cramps, Muscle Weakness, Myalgias, Neck Pain, Numbness, Radiating Pain into Limb, Stiffness, Tingling, Other - Integumentary Integumentary: absent: As Per HPI, Acne, Alopecia, Bleeding Lesions, Change in Hair, Change in Nails, Change in Pigmentation, Changing Lesions, Dry Skin, Erythema, Furuncle, Hirsutism, Lesions, New Lesions, Non-Healing Lesions, Photosensitivity, Pruritus, Rash, Skin Pain, Skin Ulcer, Sores, Striae, Swelling , Unusual Bruising, Wounds, Jaundice, Other - Neurological Neurological: absent: As Per HPI, Abnormal Gait, Abnormal Hearing, Abnormal Movements, Abnormal Speech, Behavioral Changes, Burning Sensations, Confusion, Convulsions, Disequilibrium, Dizziness, Numbness, Focal Weakness, Frequent Falls , Headaches, Lack of Coordination, Loss of Vision, Memory Loss, Paresthesias, Radicular Pain, Restless Legs, Sensory Deficit, Syncope, Tingling, Tremor, Vertigo, Weakness, Other Visual Disturbances, Other - Psychiatric Psychiatric: absent: As Per HPI, Abnormal Sleep Pattern, Anhedonia, Anxiety, Auditory Hallucinations, Behavioral Changes, Change in Appetite, Change in Libido, Confusion, Depression, Difficulty Concentrating, Hallucinations, Homicidal Ideation, Hopelessness, Irritability, Memory Loss, Mood Swings, Panic Attacks, Paranoia, Suicidal Ideation, Visual Hallucinations, Tactile Hallucinations, Other - Endocrine Endocrine: absent: As Per HPI, Change in Body Appearance, Change in Libido, Cold Intolorance, Deepening of Voice, Excessive Sweating, Fatigue, Flushing, Heat Intolorance, Increase in Ring/Shoe/Hat Size, Palpitations, Polydipsia, Polyphagia, Polyuria, Other - Hematologic/Lymphatic Hematologic: absent: As Per HPI, Easy Bleeding, Easy Bruising, Lymphadenopathy, Other Past Patient History - Past Social History Smoking Status: Former Smoker - RENAL Hx Pyelonephritis: Yes - ENDOCRINE/METABOLIC Hx Diabetes Mellitus Type 2: Yes - MUSCULOSKELETAL/RHEUMATOLOGICAL Hx Falls: No - PSYCHIATRIC Hx Substance Use: No - SURGICAL HISTORY Hx Cholecystectomy: Yes - ANESTHESIA Hx Anesthesia: Yes Hx Anesthesia Reactions: No Hx Malignant Hyperthermia: No Has any member of the family had a problem w/ anesthesia?: No Meds Allergies/Adverse Reactions: Allergies Allergy/AdvReac Type Severity Reaction Status Date / Time Penicillins Allergy Severe RASH Verified 05/22/17 10:17 - Medications Medications: Current Medications Acetaminophen (Tylenol 325mg Tab) 650 mg PO Q4 PRN PRN Reason: Fever >100.4 F Last Admin: 05/24/17 14:11 Dose: 650 mg Albuterol/Ipratropium (Duoneb 3 Mg/0.5 Mg (3 Ml) Ud) 3 ml INH RQ6 [facility] Last Admin: 05/24/17 13:32 Dose: 3 ml Enoxaparin Sodium (Lovenox) 40 mg SC DAILY [facility] Last Admin: 05/24/17 10:38 Dose: 40 mg Aztreonam 1 gm/ Sodium (Chloride) 100 mls @ 100 mls/hr IVPB Q8H [facility] Last Admin: 05/24/17 13:59 Dose: 100 mls/hr Sodium Chloride (Sodium Chloride 0.9%) 1,000 mls @ 50 mls/hr IV .Q20H [facility] Last Admin: 05/24/17 13:56 Dose: Not Given Insulin Aspart (Novolog) 0 unit SC ACHS [facility] PRN Reason: Protocol Last Admin: 05/24/17 12:19 Dose: 3 unit Pantoprazole Sodium (Protonix Ec Tab) 40 mg PO DAILY [facility] Last Admin: 05/24/17 10:38 Dose: 40 mg Physical Exam - Constitutional Appears: Toxic, Chronically Ill - Head Exam Head Exam: ATRAUMATIC, NORMAL INSPECTION, NORMOCEPHALIC - Eye Exam Eye Exam: EOMI, PERRL. absent: Scleral icterus - ENT Exam ENT Exam: Mucous Membranes Dry, Normal External Ear Exam, Normal Oropharynx - Neck Exam Neck exam: Negative for: Lymphadenopathy, Thyromegaly - Respiratory Exam Respiratory Exam: Decreased Breath Sounds, Rhonchi - Cardiovascular Exam Cardiovascular Exam: REGULAR RHYTHM, +S1, +S2 - Rectal Exam Rectal Exam: Deferred - Exam Exam: NORMAL INSPECTION - Extremities Exam Extremities exam: Negative for: pedal edema - Back Exam Back exam: absent: CVA tenderness (L), CVA tenderness (R), paraspinal tenderness - Neurological Exam Neurological exam: Alert, CN II-XII Intact, Oriented x3, Reflexes Normal - Psychiatric Exam Psychiatric exam: Normal Mood - Skin Skin Exam: Dry Results - Vital Signs Recent Vital Signs: Last Vital Signs Temp 100.8 F H 05/24/17 14:10 Pulse 103 H 05/24/17 14:10 Resp 22 05/24/17 14:10 BP 161/94 H 05/24/17 14:10 Pulse Ox 93 L 05/24/17 14:10 - Labs Result Diagrams: 05/24/17 07:47 05/24/17 07:47 Labs: Laboratory Results - last 24 hr 05/23/17 05/23/17 05/24/17 16:25 21:13 07:47 WBC 4.9 D RBC 3.80 Hgb 10.1 L Hct 29.9 L MCV 78.6 L MCH 26.5 L MCHC 33.7 RDW 15.4 H Plt Count 171 MPV 8.1 Neut % (Auto) 75.4 H Lymph % (Auto) 14.2 L [place] % (Auto) 8.7 Eos % (Auto) 1.2 Baso % (Auto) 0.5 Neut # 3.7 Lymph # 0.7 L [place] # 0.4 Eos # 0.1 Baso # 0.0 Sodium Potassium Chloride Carbon Dioxide Anion Gap BUN Creatinine Est GFR ( Amer) Est GFR (Non-Af Amer) POC Glucose (mg/dL) 159 H 134 H Random Glucose Calcium 05/24/17 05/24/17 05/24/17 07:47 07:59 10:54 WBC RBC Hgb Hct MCV MCH MCHC RDW Plt Count MPV Neut % (Auto) Lymph % (Auto) [place] % (Auto) Eos % (Auto) Baso % (Auto) Neut # Lymph # [place] # Eos # Baso # Sodium 132 Potassium 4.3 Chloride 102 Carbon Dioxide 22 Anion Gap 13 BUN 19 H Creatinine 1.3 H Est GFR ( Amer) 50 Est GFR (Non-Af Amer) 42 POC Glucose (mg/dL) 168 H 234 H Random Glucose 148 H Calcium 7.8 L 05/24/17 14:13 WBC RBC Hgb Hct MCV MCH MCHC RDW Plt Count MPV Neut % (Auto) Lymph % (Auto) [place] % (Auto) Eos % (Auto) Baso % (Auto) Neut # Lymph # [place] # Eos # Baso # Sodium Potassium Chloride Carbon Dioxide Anion Gap BUN Creatinine Est GFR ( Amer) Est GFR (Non-Af Amer) POC Glucose (mg/dL) 147 H Random Glucose Calcium Assessment & Plan (1) Dehydration Status: Acute (2) Hypoxia Status: Acute (3) BECKY and COPD overlap syndrome Status: Acute (4) Pyelonephritis Status: Acute - Assessment and Plan (Free Text) Assessment: cont iv rx for now check renal US cont iv rx
--- NOTE | 2017-05-24 17:06 | CP.PCM.PN ---
Subjective - Date & Time of Evaluation Date of Evaluation: 05/24/17 Time of Evaluation: 07:20 - Subjective Subjective: clinically same Objective - Vital Signs/Intake and Output Vital Signs (last 24 hours): Temp Pulse Resp BP Pulse Ox 101.5 F H 109 H 20 137/81 95 05/24/17 16:00 05/24/17 16:00 05/24/17 16:00 05/24/17 16:00 05/24/17 16:00 Intake and Output: 05/24/17 05/24/17 06:59 18:59 Intake Total 1560 Balance 1560 - Medications Medications: Current Medications Acetaminophen (Tylenol 325mg Tab) 650 mg PO Q4 PRN PRN Reason: Fever >100.4 F Last Admin: 05/24/17 14:11 Dose: 650 mg Albuterol/Ipratropium (Duoneb 3 Mg/0.5 Mg (3 Ml) Ud) 3 ml INH RQ6 [facility] Last Admin: 05/24/17 13:32 Dose: 3 ml Enoxaparin Sodium (Lovenox) 40 mg SC DAILY [facility] Last Admin: 05/24/17 10:38 Dose: 40 mg Aztreonam 1 gm/ Sodium (Chloride) 100 mls @ 100 mls/hr IVPB Q8H [facility] Last Admin: 05/24/17 13:59 Dose: 100 mls/hr Sodium Chloride (Sodium Chloride 0.9%) 1,000 mls @ 50 mls/hr IV .Q20H [facility] Last Admin: 05/24/17 13:56 Dose: Not Given Insulin Aspart (Novolog) 0 unit SC ACHS [facility] PRN Reason: Protocol Last Admin: 05/24/17 12:19 Dose: 3 unit Pantoprazole Sodium (Protonix Ec Tab) 40 mg PO DAILY [facility] Last Admin: 05/24/17 10:38 Dose: 40 mg - Labs Labs: 05/24/17 07:47 05/24/17 07:47 PT 14.7 SECONDS (9.7-12.2) H 05/22/17 11:49 INR 1.3 05/22/17 11:49 APTT 32 SECONDS (21-34) 05/22/17 11:49 - Constitutional Appears: Well - Head Exam Head Exam: ATRAUMATIC, NORMAL INSPECTION, NORMOCEPHALIC - Eye Exam Eye Exam: EOMI, Normal appearance, PERRL Pupil Exam: NORMAL ACCOMODATION, PERRL - ENT Exam ENT Exam: Mucous Membranes Moist, Normal Exam - Neck Exam Neck Exam: Full ROM, Normal Inspection. absent: Lymphadenopathy - Respiratory Exam Respiratory Exam: Decreased Breath Sounds - Cardiovascular Exam Cardiovascular Exam: REGULAR RHYTHM, +S1, +S2 - GI/Abdominal Exam GI & Abdominal Exam: Soft, Diminished Bowel Sounds - Rectal Exam Rectal Exam: Deferred
[2017-05-24] MEDS ORDERED: Aluminum Hydroxide/Magnesium Hydroxide Susp (30 mL) PO PRN (22:00)
[2017-05-25] MEDS: Albuterol-Ipratrop 3 mg / 0.5 (3 ml) UD INH SCH ×4 (01:54→19:38)
[2017-05-25] MEDS: Aztreonam 1 GM in Sodium Chloride 0.9% 100 ML IVPB SCH ×3 (05:23→21:46)
[2017-05-25] MEDS: Sodium Chloride 0.9% 1,000 ML IV SCH ×2 (05:23→10:29)
[2017-05-25] MEDS: (Novolog) Insulin Aspart, Recombinant 100 u/ml 10 ml vial SC SCH ×4 (08:00→21:46)
--- NOTE | 2017-05-25 09:29 | US ---
HISTORY: pyelonephritis COMPARISON: None. TECHNIQUE: Sonographic evaluation of the abdomen. FINDINGS: LIVER: Measures 17.4 cm. Diffusely increased echogenicity of the liver parenchyma. Consistent with fatty infiltration. No mass. No intrahepatic bile duct dilatation. GALLBLADDER: Status post cholecystectomy COMMON BILE DUCT: Measures 5 mm. No stones. No dilatation. PANCREAS: Unremarkable as visualized. No mass. No ductal dilatation. RIGHT KIDNEY: Measures 12.4cm. Normal echogenicity. No calculus, mass, or hydronephrosis. LEFT KIDNEY: Measures 13.6cm. Normal echogenicity. No calculus, mass, or hydronephrosis. SPLEEN: 13.7 cm. Minimally enlarged. No focal mass. AORTA: No aneurysmal dilatation. IVC: Unremarkable. OTHER FINDINGS: None. IMPRESSION: Status post cholecystectomy. Minimal splenomegaly. Fatty infiltration of the liver.
[2017-05-25] MEDS: Enoxaparin 40 mg Syringe SC SCH (10:31)
[2017-05-25] MEDS: Pantoprazole 40 mg EC Tab PO SCH (10:31)
[2017-05-25] MEDS ORDERED: Benzocaine/Menthol (Cepacol) Lozenge MT PRN (11:06)
--- NOTE | 2017-05-25 11:08 | CP.PCM.PN ---
<Tiff Concepcion - Last Filed: 05/25/17 12:00> Subjective - Date & Time of Evaluation Date of Evaluation: 05/25/17 Time of Evaluation: 09:00 - Subjective Subjective: Pulmonology Note for Dr. Salgado's Service Patient was seen and examined at bedside. Patient reported she did not have SOB when ambulating or walking to the bathroom. She reports she had a sleep study done at [facility] 5 years ago, showing she had BECKY, requiring a CPAP. She refuses to wear the mask. She reports weakness. chronic fatigue, and difficulty sleeping at night. Currently no SOB, Denied fever, chills, headache, chest pain , SOB, cough abdominal pain, n/v/d/c, or urinary symptoms. Objective - Vital Signs/Intake and Output Vital Signs (last 24 hours): Temp Pulse Resp BP Pulse Ox 98.3 F 76 20 139/75 98 05/25/17 08:13 05/25/17 08:13 05/25/17 08:13 05/25/17 08:13 05/25/17 08:13 Intake and Output: 05/25/17 05/25/17 06:59 18:59 Intake Total 1300 Balance 1300 - Medications Medications: Current Medications Acetaminophen (Tylenol 325mg Tab) 650 mg PO Q4 PRN PRN Reason: Fever >100.4 F Last Admin: 05/24/17 14:11 Dose: 650 mg Al Hydrox/Mg Hydrox/Simethicone (Maalox 30 Ml) 30 ml PO Q6H PRN PRN Reason: Indigestion / Heartburn Last Admin: 05/24/17 21:54 Dose: 30 ml Albuterol/Ipratropium (Duoneb 3 Mg/0.5 Mg (3 Ml) Ud) 3 ml INH RQ6 [facility] Last Admin: 05/25/17 01:54 Dose: 3 ml Benzocaine/Menthol (Cepacol Sore Throat) 1 sahra MT QID PRN PRN Reason: Sore Throat Enoxaparin Sodium (Lovenox) 40 mg SC DAILY [facility] Last Admin: 05/25/17 10:31 Dose: 40 mg Aztreonam 1 gm/ Sodium (Chloride) 100 mls @ 100 mls/hr IVPB Q8H [facility] Last Admin: 05/25/17 05:23 Dose: 100 mls/hr Sodium Chloride (Sodium Chloride 0.9%) 1,000 mls @ 50 mls/hr IV .Q20H [facility] Last Admin: 05/25/17 10:29 Dose: Not Given Insulin Aspart (Novolog) 0 unit SC ACHS [facility] PRN Reason: Protocol Last Admin: 05/25/17 08:00 Dose: Not Given Pantoprazole Sodium (Protonix Ec Tab) 40 mg PO DAILY [facility] Last Admin: 05/25/17 10:31 Dose: 40 mg - Labs Labs: 05/24/17 07:47 05/24/17 07:47 PT 14.7 SECONDS (9.7-12.2) H 05/22/17 11:49 INR 1.3 05/22/17 11:49 APTT 32 SECONDS (21-34) 05/22/17 11:49 - Constitutional Appears: No Acute Distress - Head Exam Head Exam: NORMAL INSPECTION, NORMOCEPHALIC - Eye Exam Eye Exam: EOMI, Normal appearance, PERRL Pupil Exam: NORMAL ACCOMODATION - ENT Exam ENT Exam: Mucous Membranes Moist - Respiratory Exam Respiratory Exam: Clear to Ausculation Bilateral, NORMAL BREATHING PATTERN. absent: Rales, Rhonchi, Wheezes - Cardiovascular Exam Cardiovascular Exam: REGULAR RHYTHM, RRR, +S1, +S2 - GI/Abdominal Exam GI & Abdominal Exam: Soft, Normal Bowel Sounds. absent: Distended, Tenderness - Extremities Exam Extremities Exam: Normal Inspection. absent: Pedal Edema, Tenderness - Neurological Exam Neurological Exam: Alert, Awake, Oriented x3 - Psychiatric Exam Psychiatric exam: Normal Affect, Normal Mood - Skin Skin Exam: Dry, Intact, Normal Color, Warm Assessment and Plan - Assessment and Plan (Free Text) Plan: BECKY and COPD overlap syndrome Patient with long history of smoking and COPD Patient had a sleep study done 5 years ago, [place] which showed she has obstructive sleep apnea requiring BiPAP. Patient refuses to wear the CPAP. Pulmonary was consulted due to hypoxemia noted on ABG during admission. Patient noncompliant with medicines. Continue nebulizer treatment CPAP at night Continue antibiotics for pyelonephritis Pyelonephritis Management as per primary team and ID Carlene Baptiste Dr., DO, PGY-1 <Benoit Salgado - Last Filed: 05/25/17 12:31> Objective - Vital Signs/Intake and Output Vital Signs (last 24 hours): Temp Pulse Resp BP Pulse Ox 98.3 F 76 20 139/75 98 05/25/17 08:13 05/25/17 08:13 05/25/17 08:13 05/25/17 08:13 05/25/17 08:13 Intake and Output: 05/25/17 05/25/17 06:59 18:59 Intake Total 1300 Balance 1300 - Medications Medications: Current Medications Acetaminophen (Tylenol 325mg Tab) 650 mg PO Q4 PRN PRN Reason: Fever >100.4 F Last Admin: 05/24/17 14:11 Dose: 650 mg Al Hydrox/Mg Hydrox/Simethicone (Maalox 30 Ml) 30 ml PO Q6H PRN PRN Reason: Indigestion / Heartburn Last Admin: 05/24/17 21:54 Dose: 30 ml Albuterol/Ipratropium (Duoneb 3 Mg/0.5 Mg (3 Ml) Ud) 3 ml INH RQ6 [facility] Last Admin: 05/25/17 01:54 Dose: 3 ml Benzocaine/Menthol (Cepacol Sore Throat) 1 sahra MT QID PRN PRN Reason: Sore Throat Enoxaparin Sodium (Lovenox) 40 mg SC DAILY [facility] Last Admin: 05/25/17 10:31 Dose: 40 mg Aztreonam 1 gm/ Sodium (Chloride) 100 mls @ 100 mls/hr IVPB Q8H [facility] Last Admin: 05/25/17 05:23 Dose: 100 mls/hr Sodium Chloride (Sodium Chloride 0.9%) 1,000 mls @ 50 mls/hr IV .Q20H [facility] Last Admin: 05/25/17 10:29 Dose: Not Given Insulin Aspart (Novolog) 0 unit SC ACHS [facility] PRN Reason: Protocol Last Admin: 05/25/17 12:25 Dose: 3 unit Pantoprazole Sodium (Protonix Ec Tab) 40 mg PO DAILY [facility] Last Admin: 05/25/17 10:31 Dose: 40 mg - Labs Labs: 05/24/17 07:47 05/24/17 07:47 PT 14.7 SECONDS (9.7-12.2) H 05/22/17 11:49 INR 1.3 05/22/17 11:49 APTT 32 SECONDS (21-34) 05/22/17 11:49 Assessment and Plan (1) BECKY and COPD overlap syndrome Status: Acute (2) Pyelonephritis Status: Acute Attending/Attestation - Attestation I have personally seen and examined this patient.: Yes I have fully participated in the care of the patient.: Yes I have reviewed all pertinent clinical information, including history, physical exam and plan: Yes Notes (Text): 05/25/17 12:30 patient seen and examined. case discussed with residents continue nebulizer treatment Patient refusing to use CPAP at night Will obtain sleep study from [facility] Continue antibiotics for pyelonephritis
--- NOTE | 2017-05-25 11:24 | CP.PCM.PN ---
Subjective - Date & Time of Evaluation Date of Evaluation: 05/25/17 Time of Evaluation: 08:00 - Subjective Subjective: still weak and bedridden c/o chills blood and urine c/s + await renal US cont IV rx for min 7 days Objective - Vital Signs/Intake and Output Vital Signs (last 24 hours): Temp Pulse Resp BP Pulse Ox 98.3 F 76 20 139/75 98 05/25/17 08:13 05/25/17 08:13 05/25/17 08:13 05/25/17 08:13 05/25/17 08:13 Intake and Output: 05/25/17 05/25/17 06:59 18:59 Intake Total 1300 Balance 1300 - Medications Medications: Current Medications Acetaminophen (Tylenol 325mg Tab) 650 mg PO Q4 PRN PRN Reason: Fever >100.4 F Last Admin: 05/24/17 14:11 Dose: 650 mg Al Hydrox/Mg Hydrox/Simethicone (Maalox 30 Ml) 30 ml PO Q6H PRN PRN Reason: Indigestion / Heartburn Last Admin: 05/24/17 21:54 Dose: 30 ml Albuterol/Ipratropium (Duoneb 3 Mg/0.5 Mg (3 Ml) Ud) 3 ml INH RQ6 [facility] Last Admin: 05/25/17 01:54 Dose: 3 ml Benzocaine/Menthol (Cepacol Sore Throat) 1 sahra MT QID PRN PRN Reason: Sore Throat Enoxaparin Sodium (Lovenox) 40 mg SC DAILY [facility] Last Admin: 05/25/17 10:31 Dose: 40 mg Aztreonam 1 gm/ Sodium (Chloride) 100 mls @ 100 mls/hr IVPB Q8H [facility] Last Admin: 05/25/17 05:23 Dose: 100 mls/hr Sodium Chloride (Sodium Chloride 0.9%) 1,000 mls @ 50 mls/hr IV .Q20H [facility] Last Admin: 05/25/17 10:29 Dose: Not Given Insulin Aspart (Novolog) 0 unit SC ACHS [facility] PRN Reason: Protocol Last Admin: 05/25/17 08:00 Dose: Not Given Pantoprazole Sodium (Protonix Ec Tab) 40 mg PO DAILY [facility] Last Admin: 05/25/17 10:31 Dose: 40 mg - Labs Labs: 05/24/17 07:47 05/24/17 07:47 PT 14.7 SECONDS (9.7-12.2) H 05/22/17 11:49 INR 1.3 05/22/17 11:49 APTT 32 SECONDS (21-34) 05/22/17 11:49 - Constitutional Appears: Non-toxic, Chronically Ill - Head Exam Head Exam: NORMOCEPHALIC - Eye Exam Eye Exam: PERRL - ENT Exam ENT Exam: Mucous Membranes Dry - Neck Exam Neck Exam: absent: Lymphadenopathy - Respiratory Exam Respiratory Exam: Decreased Breath Sounds - Cardiovascular Exam Cardiovascular Exam: REGULAR RHYTHM - GI/Abdominal Exam GI & Abdominal Exam: Distended, Soft - Rectal Exam Rectal Exam: Deferred - Exam Exam: NORMAL INSPECTION - Extremities Exam Extremities Exam: absent: Pedal Edema - Back Exam Back Exam: absent: CVA tenderness (L), CVA tenderness (R) - Neurological Exam Neurological Exam: Alert, Awake, Oriented x3 - Psychiatric Exam Psychiatric exam: Normal Mood - Skin Skin Exam: Dry Assessment and Plan (1) Dehydration Status: Acute (2) Hypoxia Status: Acute (3) BECKY and COPD overlap syndrome Status: Acute (4) Pyelonephritis Status: Acute
--- NOTE | 2017-05-25 18:51 | CP.PCM.PN ---
Subjective - Date & Time of Evaluation Date of Evaluation: 05/25/17 Time of Evaluation: 07:20 - Subjective Subjective: clinically same Objective - Vital Signs/Intake and Output Vital Signs (last 24 hours): Temp Pulse Resp BP Pulse Ox 99.1 F 87 20 135/70 94 L 05/25/17 15:00 05/25/17 15:00 05/25/17 15:00 05/25/17 15:00 05/25/17 15:00 Intake and Output: 05/25/17 05/25/17 06:59 18:59 Intake Total 1300 700 Balance 1300 700 - Medications Medications: Current Medications Acetaminophen (Tylenol 325mg Tab) 650 mg PO Q4 PRN PRN Reason: Fever >100.4 F Last Admin: 05/24/17 14:11 Dose: 650 mg Al Hydrox/Mg Hydrox/Simethicone (Maalox 30 Ml) 30 ml PO Q6H PRN PRN Reason: Indigestion / Heartburn Last Admin: 05/24/17 21:54 Dose: 30 ml Albuterol/Ipratropium (Duoneb 3 Mg/0.5 Mg (3 Ml) Ud) 3 ml INH RQ6 [facility] Last Admin: 05/25/17 14:00 Dose: 3 ml Benzocaine/Menthol (Cepacol Sore Throat) 1 sahra MT QID PRN PRN Reason: Sore Throat Enoxaparin Sodium (Lovenox) 40 mg SC DAILY [facility] Last Admin: 05/25/17 10:31 Dose: 40 mg Aztreonam 1 gm/ Sodium (Chloride) 100 mls @ 100 mls/hr IVPB Q8H [facility] Last Admin: 05/25/17 14:21 Dose: 100 mls/hr Sodium Chloride (Sodium Chloride 0.9%) 1,000 mls @ 50 mls/hr IV .Q20H [facility] Last Admin: 05/25/17 10:29 Dose: Not Given Insulin Aspart (Novolog) 0 unit SC ACHS [facility] PRN Reason: Protocol Last Admin: 05/25/17 16:45 Dose: 2 unit Pantoprazole Sodium (Protonix Ec Tab) 40 mg PO DAILY [facility] Last Admin: 05/25/17 10:31 Dose: 40 mg - Labs Labs: 05/24/17 07:47 05/24/17 07:47 PT 14.7 SECONDS (9.7-12.2) H 05/22/17 11:49 INR 1.3 05/22/17 11:49 APTT 32 SECONDS (21-34) 05/22/17 11:49 - Constitutional Appears: Well - Head Exam Head Exam: ATRAUMATIC, NORMAL INSPECTION, NORMOCEPHALIC - Eye Exam Eye Exam: EOMI, Normal appearance, PERRL Pupil Exam: NORMAL ACCOMODATION, PERRL - ENT Exam ENT Exam: Mucous Membranes Moist, Normal Exam - Neck Exam Neck Exam: Full ROM, Normal Inspection. absent: Lymphadenopathy - Respiratory Exam Respiratory Exam: Decreased Breath Sounds - Cardiovascular Exam Cardiovascular Exam: REGULAR RHYTHM, +S1, +S2 - GI/Abdominal Exam GI & Abdominal Exam: Soft, Diminished Bowel Sounds - Rectal Exam Rectal Exam: Deferred
[2017-05-26] MEDS: Albuterol-Ipratrop 3 mg / 0.5 (3 ml) UD INH SCH ×4 (01:34→19:34)
[2017-05-26] MEDS: Sodium Chloride 0.9% 1,000 ML IV SCH (04:30)
[2017-05-26] MEDS: Aztreonam 1 GM in Sodium Chloride 0.9% 100 ML IVPB SCH ×3 (06:00→22:09)
[2017-05-26] MEDS: (Novolog) Insulin Aspart, Recombinant 100 u/ml 10 ml vial SC SCH ×4 (07:47→22:18)
[2017-05-26] MEDS: Pantoprazole 40 mg EC Tab PO SCH (09:28)
[2017-05-26] MEDS: Enoxaparin 40 mg Syringe SC SCH (09:28)
--- NOTE | 2017-05-26 11:04 | CP.PCM.PN ---
<Tiff Concepcion - Last Filed: 05/26/17 11:02> Subjective - Date & Time of Evaluation Date of Evaluation: 05/26/17 Time of Evaluation: 09:00 - Subjective Subjective: Pulmonology Note for Dr. Salgado's Service Patient was seen and examined at bedside. Patient reported she is not SOB currently. Denied fever, chills, headache, chest pain, SOB, cough abdominal pain , n/v/d/c, or urinary symptoms. Objective - Vital Signs/Intake and Output Vital Signs (last 24 hours): Temp Pulse Resp BP Pulse Ox 97.9 F 73 19 149/77 95 05/26/17 07:24 05/26/17 07:24 05/26/17 07:24 05/26/17 07:24 05/26/17 07:24 Intake and Output: 05/26/17 05/26/17 06:59 18:59 Intake Total 580 Balance 580 - Medications Medications: Current Medications Acetaminophen (Tylenol 325mg Tab) 650 mg PO Q4 PRN PRN Reason: Fever >100.4 F Last Admin: 05/24/17 14:11 Dose: 650 mg Al Hydrox/Mg Hydrox/Simethicone (Maalox 30 Ml) 30 ml PO Q6H PRN PRN Reason: Indigestion / Heartburn Last Admin: 05/24/17 21:54 Dose: 30 ml Albuterol/Ipratropium (Duoneb 3 Mg/0.5 Mg (3 Ml) Ud) 3 ml INH RQ6 [facility] Last Admin: 05/26/17 08:12 Dose: 3 ml Benzocaine/Menthol (Cepacol Sore Throat) 1 sahra MT QID PRN PRN Reason: Sore Throat Enoxaparin Sodium (Lovenox) 40 mg SC DAILY [facility] Last Admin: 05/26/17 09:28 Dose: 40 mg Aztreonam 1 gm/ Sodium (Chloride) 100 mls @ 100 mls/hr IVPB Q8H [facility] Last Admin: 05/26/17 06:00 Dose: 100 mls/hr Sodium Chloride (Sodium Chloride 0.9%) 1,000 mls @ 50 mls/hr IV .Q20H [facility] Last Admin: 05/26/17 04:30 Dose: 50 mls/hr Insulin Aspart (Novolog) 0 unit SC ACHS [facility] PRN Reason: Protocol Last Admin: 05/26/17 07:47 Dose: Not Given Pantoprazole Sodium (Protonix Ec Tab) 40 mg PO DAILY [facility] Last Admin: 05/26/17 09:28 Dose: 40 mg - Labs Labs: 05/24/17 07:47 05/24/17 07:47 PT 14.7 SECONDS (9.7-12.2) H 05/22/17 11:49 INR 1.3 05/22/17 11:49 APTT 32 SECONDS (21-34) 05/22/17 11:49 - Additional Findings Additional findings: - Constitutional Appears: No Acute Distress - Head Exam Head Exam: NORMAL INSPECTION, NORMOCEPHALIC - Eye Exam Eye Exam: EOMI, Normal appearance, PERRL Pupil Exam: NORMAL ACCOMODATION - ENT Exam ENT Exam: Mucous Membranes Moist - Respiratory Exam Respiratory Exam: Clear to Ausculation Bilateral, NORMAL BREATHING PATTERN. absent: Rales, Rhonchi, Wheezes - Cardiovascular Exam Cardiovascular Exam: REGULAR RHYTHM, RRR, +S1, +S2 - GI/Abdominal Exam GI & Abdominal Exam: Soft, Normal Bowel Sounds. absent: Distended, Tenderness - Extremities Exam Extremities Exam: Normal Inspection. absent: Pedal Edema, Tenderness - Neurological Exam Neurological Exam: Alert, Awake, Oriented x3 - Psychiatric Exam Psychiatric exam: Normal Affect, Normal Mood - Skin Skin Exam: Dry, Intact, Normal Color, Warm Assessment and Plan - Assessment and Plan (Free Text) Plan: BECKY and COPD overlap syndrome Patient with long history of smoking and COPD Patient had a sleep study done 5 years ago, [facility] in [place], [place] FAX # [phone] which showed she has obstructive sleep apnea requiring BiPAP. Medical records requested from this institution Patient refuses to wear the CPAP. Pulmonary was consulted due to hypoxemia noted on ABG during admission. Patient noncompliant with medicines. Continue nebulizer treatment CPAP at night Pyelonephritis Management as per primary team and ID Continue antibiotics DW Carlene Li DO, PGY-1 <Benoit Salgado - Last Filed: 05/26/17 18:50> Objective - Vital Signs/Intake and Output Vital Signs (last 24 hours): Temp Pulse Resp BP Pulse Ox 99.8 F H 77 20 135/80 96 05/26/17 15:00 05/26/17 15:00 05/26/17 15:00 05/26/17 15:00 05/26/17 15:00 Intake and Output: 05/26/17 05/26/17 06:59 18:59 Intake Total 580 900 Balance 580 900 - Medications Medications: Current Medications Acetaminophen (Tylenol 325mg Tab) 650 mg PO Q4 PRN PRN Reason: Fever >100.4 F Last Admin: 05/24/17 14:11 Dose: 650 mg Al Hydrox/Mg Hydrox/Simethicone (Maalox 30 Ml) 30 ml PO Q6H PRN PRN Reason: Indigestion / Heartburn Last Admin: 05/24/17 21:54 Dose: 30 ml Albuterol/Ipratropium (Duoneb 3 Mg/0.5 Mg (3 Ml) Ud) 3 ml INH RQ6 [facility] Last Admin: 05/26/17 13:15 Dose: 3 ml Benzocaine/Menthol (Cepacol Sore Throat) 1 sahra MT QID PRN PRN Reason: Sore Throat Enoxaparin Sodium (Lovenox) 40 mg SC DAILY [facility] Last Admin: 05/26/17 09:28 Dose: 40 mg Aztreonam 1 gm/ Sodium (Chloride) 100 mls @ 100 mls/hr IVPB Q8H [facility] Last Admin: 05/26/17 14:11 Dose: 100 mls/hr Sodium Chloride (Sodium Chloride 0.9%) 1,000 mls @ 50 mls/hr IV .Q20H [facility] Last Admin: 05/26/17 04:30 Dose: 50 mls/hr Insulin Aspart (Novolog) 0 unit SC ACHS [facility] PRN Reason: Protocol Last Admin: 05/26/17 12:26 Dose: 2 unit Pantoprazole Sodium (Protonix Ec Tab) 40 mg PO DAILY [facility] Last Admin: 05/26/17 09:28 Dose: 40 mg - Labs Labs: 05/24/17 07:47 05/24/17 07:47 PT 14.7 SECONDS (9.7-12.2) H 05/22/17 11:49 INR 1.3 05/22/17 11:49 APTT 32 SECONDS (21-34) 05/22/17 11:49 Assessment and Plan (1) BECKY and COPD overlap syndrome Status: Acute (2) Pyelonephritis Status: Acute Attending/Attestation - Attestation I have personally seen and examined this patient.: Yes I have fully participated in the care of the patient.: Yes I have reviewed all pertinent clinical information, including history, physical exam and plan: Yes
--- NOTE | 2017-05-26 11:40 | CP.PCM.PN ---
Subjective - Date & Time of Evaluation Date of Evaluation: 05/26/17 Time of Evaluation: 08:00 - Subjective Subjective: improving slowly IV rx in progress e coli sepsis/ uti/ bacteremia Objective - Vital Signs/Intake and Output Vital Signs (last 24 hours): Temp Pulse Resp BP Pulse Ox 97.9 F 73 19 149/77 95 05/26/17 07:24 05/26/17 07:24 05/26/17 07:24 05/26/17 07:24 05/26/17 07:24 Intake and Output: 05/26/17 05/26/17 06:59 18:59 Intake Total 580 Balance 580 - Medications Medications: Current Medications Acetaminophen (Tylenol 325mg Tab) 650 mg PO Q4 PRN PRN Reason: Fever >100.4 F Last Admin: 05/24/17 14:11 Dose: 650 mg Al Hydrox/Mg Hydrox/Simethicone (Maalox 30 Ml) 30 ml PO Q6H PRN PRN Reason: Indigestion / Heartburn Last Admin: 05/24/17 21:54 Dose: 30 ml Albuterol/Ipratropium (Duoneb 3 Mg/0.5 Mg (3 Ml) Ud) 3 ml INH RQ6 [facility] Last Admin: 05/26/17 08:12 Dose: 3 ml Benzocaine/Menthol (Cepacol Sore Throat) 1 sahra MT QID PRN PRN Reason: Sore Throat Enoxaparin Sodium (Lovenox) 40 mg SC DAILY [facility] Last Admin: 05/26/17 09:28 Dose: 40 mg Aztreonam 1 gm/ Sodium (Chloride) 100 mls @ 100 mls/hr IVPB Q8H [facility] Last Admin: 05/26/17 06:00 Dose: 100 mls/hr Sodium Chloride (Sodium Chloride 0.9%) 1,000 mls @ 50 mls/hr IV .Q20H [facility] Last Admin: 05/26/17 04:30 Dose: 50 mls/hr Insulin Aspart (Novolog) 0 unit SC ACHS [facility] PRN Reason: Protocol Last Admin: 05/26/17 07:47 Dose: Not Given Pantoprazole Sodium (Protonix Ec Tab) 40 mg PO DAILY [facility] Last Admin: 05/26/17 09:28 Dose: 40 mg - Labs Labs: 05/24/17 07:47 05/24/17 07:47 PT 14.7 SECONDS (9.7-12.2) H 05/22/17 11:49 INR 1.3 05/22/17 11:49 APTT 32 SECONDS (21-34) 05/22/17 11:49 - Constitutional Appears: Non-toxic, Chronically Ill - Head Exam Head Exam: NORMOCEPHALIC - Eye Exam Eye Exam: PERRL - ENT Exam ENT Exam: Normal External Ear Exam - Neck Exam Neck Exam: absent: Lymphadenopathy - Respiratory Exam Respiratory Exam: Decreased Breath Sounds, Clear to Ausculation Bilateral - Cardiovascular Exam Cardiovascular Exam: REGULAR RHYTHM, +S1, +S2 - GI/Abdominal Exam GI & Abdominal Exam: Distended, Soft - Rectal Exam Rectal Exam: Deferred Assessment and Plan (1) Dehydration Status: Acute (2) Hypoxia Status: Acute (3) BECKY and COPD overlap syndrome Status: Acute (4) Pyelonephritis Status: Acute
[2017-05-26 16:30] VITALS: RESP 20
--- NOTE | 2017-05-26 18:30 | CP.PCM.PN ---
Subjective - Date & Time of Evaluation Date of Evaluation: 05/26/17 Time of Evaluation: 07:00 - Subjective Subjective: clinically same Objective - Vital Signs/Intake and Output Vital Signs (last 24 hours): Temp Pulse Resp BP Pulse Ox 99.8 F H 77 20 135/80 96 05/26/17 15:00 05/26/17 15:00 05/26/17 15:00 05/26/17 15:00 05/26/17 15:00 Intake and Output: 05/26/17 05/26/17 06:59 18:59 Intake Total 580 900 Balance 580 900 - Medications Medications: Current Medications Acetaminophen (Tylenol 325mg Tab) 650 mg PO Q4 PRN PRN Reason: Fever >100.4 F Last Admin: 05/24/17 14:11 Dose: 650 mg Al Hydrox/Mg Hydrox/Simethicone (Maalox 30 Ml) 30 ml PO Q6H PRN PRN Reason: Indigestion / Heartburn Last Admin: 05/24/17 21:54 Dose: 30 ml Albuterol/Ipratropium (Duoneb 3 Mg/0.5 Mg (3 Ml) Ud) 3 ml INH RQ6 [facility] Last Admin: 05/26/17 13:15 Dose: 3 ml Benzocaine/Menthol (Cepacol Sore Throat) 1 sahra MT QID PRN PRN Reason: Sore Throat Enoxaparin Sodium (Lovenox) 40 mg SC DAILY [facility] Last Admin: 05/26/17 09:28 Dose: 40 mg Aztreonam 1 gm/ Sodium (Chloride) 100 mls @ 100 mls/hr IVPB Q8H [facility] Last Admin: 05/26/17 14:11 Dose: 100 mls/hr Sodium Chloride (Sodium Chloride 0.9%) 1,000 mls @ 50 mls/hr IV .Q20H [facility] Last Admin: 05/26/17 04:30 Dose: 50 mls/hr Insulin Aspart (Novolog) 0 unit SC ACHS [facility] PRN Reason: Protocol Last Admin: 05/26/17 12:26 Dose: 2 unit Pantoprazole Sodium (Protonix Ec Tab) 40 mg PO DAILY [facility] Last Admin: 05/26/17 09:28 Dose: 40 mg - Labs Labs: 05/24/17 07:47 05/24/17 07:47 PT 14.7 SECONDS (9.7-12.2) H 05/22/17 11:49 INR 1.3 05/22/17 11:49 APTT 32 SECONDS (21-34) 05/22/17 11:49 - Constitutional Appears: Well - Head Exam Head Exam: ATRAUMATIC, NORMAL INSPECTION, NORMOCEPHALIC - Eye Exam Eye Exam: EOMI, Normal appearance, PERRL Pupil Exam: NORMAL ACCOMODATION, PERRL - ENT Exam ENT Exam: Mucous Membranes Moist, Normal Exam - Neck Exam Neck Exam: Full ROM, Normal Inspection. absent: Lymphadenopathy - Respiratory Exam Respiratory Exam: Decreased Breath Sounds - Cardiovascular Exam Cardiovascular Exam: REGULAR RHYTHM, +S1, +S2 - GI/Abdominal Exam GI & Abdominal Exam: Soft, Diminished Bowel Sounds - Rectal Exam Rectal Exam: Deferred
[2017-05-27] MEDS: Albuterol-Ipratrop 3 mg / 0.5 (3 ml) UD INH SCH ×4 (01:16→20:00)
[2017-05-27] MEDS: Aztreonam 1 GM in Sodium Chloride 0.9% 100 ML IVPB SCH ×3 (06:00→21:14)
[2017-05-27] MEDS: (Novolog) Insulin Aspart, Recombinant 100 u/ml 10 ml vial SC SCH ×4 (07:51→21:15)
[2017-05-27 07:58] LABS: BASO % 0.6 % (0.0-2.0); EOS # 0.2 K/uL (0.0-0.7); EOS % 2.4 % (0.0-4.0); HEMATOCRIT 28.4 % (34.0-47.0); LYMPH # 1.3 K/uL (1.0-4.3); LYMPH % 19.8 % (20.0-40.0); MEAN CELL VOLUME 78.3 fL (81.0-99.0); MEAN CORPUSCULAR HEMOGLOBIN 26.6 pg (27.0-31.0); MEAN PLATELET VOLUME 7.6 fL (7.2-11.7); MONO # 0.9 K/uL (0.0-0.8); RED CELL DISTRIBUTION WIDTH 15.7 % (11.5-14.5); WHITE BLOOD COUNT 6.8 K/uL (4.8-10.8)
[2017-05-27 08:31] LABS: CHLORIDE 104 mmol/L (98-107); SODIUM 138 mmol/L (132-148)
[2017-05-27 08:34] LABS: ALB/GLOB RATIO 0.9 (1.0-2.1); ALKALINE PHOSPHATASE 235 U/L (38-126); ALT/SGPT 59 U/L (9-52); AST/SGOT 36 U/L (14-36); BILIRUBIN,TOTAL 0.3 mg/dL (0.2-1.3); BLOOD UREA NITROGEN 15 mg/dL (7-17); CALCIUM 8.6 mg/dl (8.6-10.4); CARBON DIOXIDE 24 mmol/L (22-30); GFR AFRICAN-AMERICAN > 60; GLUCOSE,RANDOM 121 mg/dL (65-105); TOTAL PROTEIN 6.3 g/dL (6.3-8.3)
--- NOTE | 2017-05-27 09:37 | CP.PCM.PN ---
Subjective - Date & Time of Evaluation Date of Evaluation: 05/27/17 Time of Evaluation: 07:15 - Subjective Subjective: PGY3 Medicine Note - Dr. Yasmeen Jones's service: Patient seen and examined at bedside this AM. Patient says she is feeling better but still feels weak and feverish sometimes. Patient reports continued urinary frequency. Patient denies chest pain, SOB, abdominal pain, nausea, vomiting, diarrhea, constipation, dysuria. Objective - Vital Signs/Intake and Output Vital Signs (last 24 hours): Temp Pulse Resp BP Pulse Ox 98.6 F 75 20 163/73 H 97 05/27/17 08:00 05/27/17 08:00 05/27/17 08:00 05/27/17 08:00 05/27/17 08:00 Intake and Output: 05/27/17 05/27/17 06:59 18:59 Intake Total 900 750 Balance 900 750 - Medications Medications: Current Medications Acetaminophen (Tylenol 325mg Tab) 650 mg PO Q4 PRN PRN Reason: Fever >100.4 F Last Admin: 05/24/17 14:11 Dose: 650 mg Al Hydrox/Mg Hydrox/Simethicone (Maalox 30 Ml) 30 ml PO Q6H PRN PRN Reason: Indigestion / Heartburn Last Admin: 05/24/17 21:54 Dose: 30 ml Albuterol/Ipratropium (Duoneb 3 Mg/0.5 Mg (3 Ml) Ud) 3 ml INH RQ6 [facility] Last Admin: 05/27/17 07:34 Dose: 3 ml Benzocaine/Menthol (Cepacol Sore Throat) 1 sahra MT QID PRN PRN Reason: Sore Throat Enoxaparin Sodium (Lovenox) 40 mg SC DAILY [facility] Last Admin: 05/26/17 09:28 Dose: 40 mg Aztreonam 1 gm/ Sodium (Chloride) 100 mls @ 100 mls/hr IVPB Q8H [facility] Last Admin: 05/27/17 06:00 Dose: 100 mls/hr Sodium Chloride (Sodium Chloride 0.9%) 1,000 mls @ 50 mls/hr IV .Q20H [facility] Last Admin: 05/26/17 04:30 Dose: 50 mls/hr Insulin Aspart (Novolog) 0 unit SC ACHS [facility] PRN Reason: Protocol Last Admin: 05/27/17 07:51 Dose: Not Given Pantoprazole Sodium (Protonix Ec Tab) 40 mg PO DAILY [facility] Last Admin: 05/26/17 09:28 Dose: 40 mg - Labs Labs: 05/27/17 07:39 05/27/17 07:39 PT 14.7 SECONDS (9.7-12.2) H 05/22/17 11:49 INR 1.3 05/22/17 11:49 APTT 32 SECONDS (21-34) 05/22/17 11:49 - Constitutional Appears: Non-toxic, No Acute Distress - Head Exam Head Exam: NORMAL INSPECTION - Eye Exam Eye Exam: EOMI - ENT Exam ENT Exam: Mucous Membranes Moist - Respiratory Exam Respiratory Exam: Clear to Ausculation Bilateral, NORMAL BREATHING PATTERN. absent: Rales, Rhonchi, Wheezes - Cardiovascular Exam Cardiovascular Exam: REGULAR RHYTHM, +S1, +S2. absent: Gallop, Rubs, Murmur - GI/Abdominal Exam GI & Abdominal Exam: Soft, Normal Bowel Sounds. absent: Tenderness - Extremities Exam Extremities Exam: absent: Pedal Edema - Back Exam Back Exam: absent: CVA tenderness (L), CVA tenderness (R) - Neurological Exam Neurological Exam: Alert, Awake, Oriented x3 - Psychiatric Exam Psychiatric exam: Normal Affect, Normal Mood - Skin Skin Exam: Normal Color, Warm Assessment and Plan - Assessment and Plan (Free Text) Assessment: Bacteremia 05/22/17 blood culture: E.Coli resistant to ampicillin 05/25/17 blood culture: negative x 24 hours Aztreonam 1gm IVPB Q8H day 6 ID consult - Dr. Collazo - help appreciated - recommends 7 days of IV aztreonam followed by 7 days of PO ciprofloxacin WBC 6.8 today, last fever 100.6 on 05/24/17 F/U CBC in AM, monitor for fever UTI 05/22/17 urine culture: E.Coli See plan above Anemia Hgb dropped from 11.3 on admission to 9.7 today F/U iron and TIBC, ferritin, retic count, b12, folate, stool occult blood BECKY and COPD overlap syndrome 05/23/17 Lung VQ scan - no evidence of PE 05/22 CXR - limited inspiratory volume. No acute infiltrate, pleural effusion or pneumothorax identified. Prominent cardiac silhouette without pulmonary vascular derangement (please see full report) Per pulmonology note: Patient with long history of smoking and COPD Patient had a sleep study done 5 years ago, [facility] in [place], [place] FAX # [phone] which showed she has obstructive sleep apnea requiring BiPAP. Medical records requested from this institution Patient refuses to wear the CPAP. Pulmonary was consulted due to hypoxemia noted on ABG during admission. Patient noncompliant with medicines. Continue nebulizer treatment CPAP at night Transaminitis ALT and ALP increased to 59 and 235. Monitor F/U hepatitis panel and GGT Abdominal US 05/25 shoes fatty infiltration of liver and splenomegaly Prominent Pineal Gland Seen on head CT 05/22/17 Patient needs nonemergent pre and post contrast MRI of brain outpatient. Patient needs to be reminded of this on discharge. Prophylaxis Lovenox 40mg SC daily Protonix 40mg PO daily All medical management per Dr. Yasmeen Jones
[2017-05-27] MEDS: Pantoprazole 40 mg EC Tab PO SCH (09:54)
[2017-05-27] MEDS: Enoxaparin 40 mg Syringe SC SCH (09:54)
--- NOTE | 2017-05-27 10:26 | CP.PCM.PN ---
<Tiff Concepcion - Last Filed: 05/27/17 10:39> Subjective - Date & Time of Evaluation Date of Evaluation: 05/27/17 Time of Evaluation: 09:00 - Subjective Subjective: Pulmonology Note for Dr. Salgado's Service Patient was seen and examined at bedside. Patient reported she is not SOB currently, she reports feeling fatigued and feverish overnight. Admits some dysuria and urinary frequency. Denied chills, headache, chest pain, SOB, cough abdominal pain, or n/v/d/c Objective - Vital Signs/Intake and Output Vital Signs (last 24 hours): Temp Pulse Resp BP Pulse Ox 98.6 F 75 20 163/73 H 97 05/27/17 08:00 05/27/17 08:00 05/27/17 08:00 05/27/17 08:00 05/27/17 08:00 Intake and Output: 05/27/17 05/27/17 06:59 18:59 Intake Total 900 750 Balance 900 750 - Medications Medications: Current Medications Acetaminophen (Tylenol 325mg Tab) 650 mg PO Q4 PRN PRN Reason: Fever >100.4 F Last Admin: 05/24/17 14:11 Dose: 650 mg Al Hydrox/Mg Hydrox/Simethicone (Maalox 30 Ml) 30 ml PO Q6H PRN PRN Reason: Indigestion / Heartburn Last Admin: 05/24/17 21:54 Dose: 30 ml Albuterol/Ipratropium (Duoneb 3 Mg/0.5 Mg (3 Ml) Ud) 3 ml INH RQ6 [facility] Last Admin: 05/27/17 07:34 Dose: 3 ml Benzocaine/Menthol (Cepacol Sore Throat) 1 sahra MT QID PRN PRN Reason: Sore Throat Enoxaparin Sodium (Lovenox) 40 mg SC DAILY [facility] Last Admin: 05/27/17 09:54 Dose: 40 mg Aztreonam 1 gm/ Sodium (Chloride) 100 mls @ 100 mls/hr IVPB Q8H [facility] Last Admin: 05/27/17 06:00 Dose: 100 mls/hr Insulin Aspart (Novolog) 0 unit SC ACHS [facility] PRN Reason: Protocol Last Admin: 05/27/17 07:51 Dose: Not Given Pantoprazole Sodium (Protonix Ec Tab) 40 mg PO DAILY [facility] Last Admin: 05/27/17 09:54 Dose: 40 mg - Labs Labs: 05/27/17 07:39 05/27/17 07:39 PT 14.7 SECONDS (9.7-12.2) H 05/22/17 11:49 INR 1.3 05/22/17 11:49 APTT 32 SECONDS (21-34) 05/22/17 11:49 - Additional Findings Additional findings: - Constitutional Appears: No Acute Distress - Head Exam Head Exam: NORMAL INSPECTION, NORMOCEPHALIC - Eye Exam Eye Exam: EOMI, Normal appearance, PERRL Pupil Exam: NORMAL ACCOMODATION - ENT Exam ENT Exam: Mucous Membranes Moist - Respiratory Exam Respiratory Exam: Clear to Ausculation Bilateral, NORMAL BREATHING PATTERN. absent: Rales, Rhonchi, Wheezes - Cardiovascular Exam Cardiovascular Exam: REGULAR RHYTHM, RRR, +S1, +S2 - GI/Abdominal Exam GI & Abdominal Exam: Soft, Normal Bowel Sounds. absent: Distended, Tenderness - Extremities Exam Extremities Exam: Normal Inspection. absent: Pedal Edema, Tenderness - Neurological Exam Neurological Exam: Alert, Awake, Oriented x3 - Psychiatric Exam Psychiatric exam: Normal Affect, Normal Mood - Skin Skin Exam: Dry, Intact, Normal Color, Warm Assessment and Plan - Assessment and Plan (Free Text) Plan: BECKY and COPD overlap syndrome Patient with long history of smoking and COPD Patient had a sleep study done 5 years ago, [facility] in [place], [place] FAX # [phone] which showed she has obstructive sleep apnea requiring BiPAP Medical records requested from this institution - patient had a screening study suggestive of severe obstructive sleep apnea. Suggest a full overnight sleep study. This screening study was performed 2012. Copy of report is in patient's chart. Patient refuses to wear the CPAP Pulmonary was consulted due to hypoxemia noted on ABG during admission Patient noncompliant with medicines Continue nebulizer treatment CPAP at night Recommend outpatient sleep study Pyelonephritis Management as per primary team and ID Continue antibiotics DW Carlene Li DO, PGY-1 <Benoit Salgado - Last Filed: 05/27/17 14:50> Objective - Vital Signs/Intake and Output Vital Signs (last 24 hours): Temp Pulse Resp BP Pulse Ox 98.6 F 75 20 163/73 H 97 05/27/17 08:00 05/27/17 08:00 05/27/17 08:00 05/27/17 08:00 05/27/17 08:00 Intake and Output: 05/27/17 05/27/17 06:59 18:59 Intake Total 900 1300 Balance 900 1300 - Medications Medications: Current Medications Acetaminophen (Tylenol 325mg Tab) 650 mg PO Q4 PRN PRN Reason: Fever >100.4 F Last Admin: 05/24/17 14:11 Dose: 650 mg Al Hydrox/Mg Hydrox/Simethicone (Maalox 30 Ml) 30 ml PO Q6H PRN PRN Reason: Indigestion / Heartburn Last Admin: 05/24/17 21:54 Dose: 30 ml Albuterol/Ipratropium (Duoneb 3 Mg/0.5 Mg (3 Ml) Ud) 3 ml INH RQ6 [facility] Last Admin: 05/27/17 13:38 Dose: 3 ml Benzocaine/Menthol (Cepacol Sore Throat) 1 sahra MT QID PRN PRN Reason: Sore Throat Enoxaparin Sodium (Lovenox) 40 mg SC DAILY [facility] Last Admin: 05/27/17 09:54 Dose: 40 mg Aztreonam 1 gm/ Sodium (Chloride) 100 mls @ 100 mls/hr IVPB Q8H [facility] Last Admin: 05/27/17 13:16 Dose: 100 mls/hr Insulin Aspart (Novolog) 0 unit SC ACHS [facility] PRN Reason: Protocol Last Admin: 05/27/17 12:15 Dose: 2 unit Pantoprazole Sodium (Protonix Ec Tab) 40 mg PO DAILY [facility] Last Admin: 05/27/17 09:54 Dose: 40 mg - Labs Labs: 05/27/17 07:39 05/27/17 07:39 PT 14.7 SECONDS (9.7-12.2) H 05/22/17 11:49 INR 1.3 05/22/17 11:49 APTT 32 SECONDS (21-34) 05/22/17 11:49 Assessment and Plan (1) BECKY and COPD overlap syndrome Status: Acute (2) Pyelonephritis Status: Acute Attending/Attestation - Attestation I have personally seen and examined this patient.: Yes I have fully participated in the care of the patient.: Yes I have reviewed all pertinent clinical information, including history, physical exam and plan: Yes Notes (Text): 05/27/17 14:49 Patient seen and examined. Sleep study consistent with severe obstructive sleep apnea Patient advised to use CPAP at night Follow-up with PMD Continue treatment for pyelonephritis Repeat ABG room air
[2017-05-27 12:11] LABS: IRON 40 ug/dL (37-170)
--- NOTE | 2017-05-27 18:04 | CP.PCM.PN ---
Subjective - Date & Time of Evaluation Date of Evaluation: 05/27/17 Time of Evaluation: 10:00 - Subjective Subjective: less fever/ chills Objective - Vital Signs/Intake and Output Vital Signs (last 24 hours): Temp Pulse Resp BP Pulse Ox 99.7 F H 70 20 148/75 96 05/27/17 16:00 05/27/17 16:00 05/27/17 16:00 05/27/17 16:00 05/27/17 16:00 Intake and Output: 05/27/17 05/27/17 06:59 18:59 Intake Total 900 1300 Balance 900 1300 - Medications Medications: Current Medications Acetaminophen (Tylenol 325mg Tab) 650 mg PO Q4 PRN PRN Reason: Fever >100.4 F Last Admin: 05/24/17 14:11 Dose: 650 mg Al Hydrox/Mg Hydrox/Simethicone (Maalox 30 Ml) 30 ml PO Q6H PRN PRN Reason: Indigestion / Heartburn Last Admin: 05/24/17 21:54 Dose: 30 ml Albuterol/Ipratropium (Duoneb 3 Mg/0.5 Mg (3 Ml) Ud) 3 ml INH RQ6 [facility] Last Admin: 05/27/17 13:38 Dose: 3 ml Benzocaine/Menthol (Cepacol Sore Throat) 1 sahra MT QID PRN PRN Reason: Sore Throat Enoxaparin Sodium (Lovenox) 40 mg SC DAILY [facility] Last Admin: 05/27/17 09:54 Dose: 40 mg Aztreonam 1 gm/ Sodium (Chloride) 100 mls @ 100 mls/hr IVPB Q8H [facility] Last Admin: 05/27/17 13:16 Dose: 100 mls/hr Insulin Aspart (Novolog) 0 unit SC ACHS [facility] PRN Reason: Protocol Last Admin: 05/27/17 16:30 Dose: 2 unit Pantoprazole Sodium (Protonix Ec Tab) 40 mg PO DAILY [facility] Last Admin: 05/27/17 09:54 Dose: 40 mg - Labs Labs: 05/27/17 07:39 05/27/17 07:39 PT 14.7 SECONDS (9.7-12.2) H 05/22/17 11:49 INR 1.3 05/22/17 11:49 APTT 32 SECONDS (21-34) 05/22/17 11:49 - Constitutional Appears: Non-toxic, Chronically Ill - Head Exam Head Exam: NORMOCEPHALIC - Eye Exam Eye Exam: Normal appearance, PERRL. absent: Scleral icterus - ENT Exam ENT Exam: Mucous Membranes Dry, Normal External Ear Exam - Neck Exam Neck Exam: absent: Lymphadenopathy - Respiratory Exam Respiratory Exam: Decreased Breath Sounds, Rhonchi - Cardiovascular Exam Cardiovascular Exam: REGULAR RHYTHM, +S1, +S2 - GI/Abdominal Exam GI & Abdominal Exam: Distended, Soft - Rectal Exam Rectal Exam: Deferred Assessment and Plan (1) Dehydration Status: Acute (2) Hypoxia Status: Acute (3) BECKY and COPD overlap syndrome Status: Acute (4) Pyelonephritis Status: Acute - Assessment and Plan (Free Text) Assessment: severe e coli sepis/ pyelonephritis/ exac copd needs 7 days iv rx then 7-14 days PO with follow up
--- NOTE | 2017-05-27 19:37 | CP.PCM.PN ---
Subjective - Date & Time of Evaluation Date of Evaluation: 05/27/17 Time of Evaluation: 07:00 - Subjective Subjective: clinically same Objective - Vital Signs/Intake and Output Vital Signs (last 24 hours): Temp Pulse Resp BP Pulse Ox 99.7 F H 70 20 148/75 96 05/27/17 16:00 05/27/17 16:00 05/27/17 16:00 05/27/17 16:00 05/27/17 16:00 Intake and Output: 05/27/17 05/28/17 18:59 06:59 Intake Total 1300 Balance 1300 - Medications Medications: Current Medications Acetaminophen (Tylenol 325mg Tab) 650 mg PO Q4 PRN PRN Reason: Fever >100.4 F Last Admin: 05/24/17 14:11 Dose: 650 mg Al Hydrox/Mg Hydrox/Simethicone (Maalox 30 Ml) 30 ml PO Q6H PRN PRN Reason: Indigestion / Heartburn Last Admin: 05/24/17 21:54 Dose: 30 ml Albuterol/Ipratropium (Duoneb 3 Mg/0.5 Mg (3 Ml) Ud) 3 ml INH RQ6 SALONI Last Admin: 05/27/17 13:38 Dose: 3 ml Benzocaine/Menthol (Cepacol Sore Throat) 1 sahra MT QID PRN PRN Reason: Sore Throat Enoxaparin Sodium (Lovenox) 40 mg SC DAILY [facility] Last Admin: 05/27/17 09:54 Dose: 40 mg Aztreonam 1 gm/ Sodium (Chloride) 100 mls @ 100 mls/hr IVPB Q8H [facility] Last Admin: 05/27/17 13:16 Dose: 100 mls/hr Insulin Aspart (Novolog) 0 unit SC ACHS SALONI PRN Reason: Protocol Last Admin: 05/27/17 16:30 Dose: 2 unit Pantoprazole Sodium (Protonix Ec Tab) 40 mg PO DAILY [facility] Last Admin: 05/27/17 09:54 Dose: 40 mg - Labs Labs: 05/27/17 07:39 05/27/17 07:39 PT 14.7 SECONDS (9.7-12.2) H 05/22/17 11:49 INR 1.3 05/22/17 11:49 APTT 32 SECONDS (21-34) 05/22/17 11:49 - Constitutional Appears: Well - Head Exam Head Exam: ATRAUMATIC, NORMAL INSPECTION, NORMOCEPHALIC - Eye Exam Eye Exam: EOMI, Normal appearance, PERRL Pupil Exam: NORMAL ACCOMODATION, PERRL - ENT Exam ENT Exam: Mucous Membranes Moist, Normal Exam - Neck Exam Neck Exam: Full ROM, Normal Inspection. absent: Lymphadenopathy - Respiratory Exam Respiratory Exam: Decreased Breath Sounds - Cardiovascular Exam Cardiovascular Exam: REGULAR RHYTHM, +S1, +S2 - GI/Abdominal Exam GI & Abdominal Exam: Soft, Diminished Bowel Sounds - Rectal Exam Rectal Exam: Deferred
[2017-05-28] MEDS: Albuterol-Ipratrop 3 mg / 0.5 (3 ml) UD INH SCH ×3 (01:15→13:58)
[2017-05-28 01:51] VITALS: BP 152/74; PULSE 77; TEMP 98.9; O2SAT 99
[2017-05-28] MEDS: Aztreonam 1 GM in Sodium Chloride 0.9% 100 ML IVPB SCH (05:16)
[2017-05-28 07:40] LABS: BASO # 0.1 K/uL (0.0-0.2); BASO % 0.8 % (0.0-2.0); EOS # 0.2 K/uL (0.0-0.7); EOS % 2.3 % (0.0-4.0); HEMATOCRIT 29.4 % (34.0-47.0); LYMPH # 1.4 K/uL (1.0-4.3); LYMPH % 18.8 % (20.0-40.0); MEAN CORPUSCULAR HEMOGLOBIN 26.4 pg (27.0-31.0); MEAN CORPUSCULAR HGB CONC 33.8 g/dL (33.0-37.0); MEAN PLATELET VOLUME 7.3 fL (7.2-11.7); MONO # 0.7 K/uL (0.0-0.8); MONO % 9.7 % (0.0-10.0); NRBC % 0.1 % (0.0-2.0); RED CELL DISTRIBUTION WIDTH 15.3 % (11.5-14.5); WHITE BLOOD COUNT 7.6 K/uL (4.8-10.8)
[2017-05-28 08:06] LABS: CHLORIDE 102 mmol/L (98-107)
[2017-05-28 08:07] LABS: POTASSIUM 3.1 mmol/L (3.6-5.2); SODIUM 137 mmol/L (132-148)
[2017-05-28 08:09] LABS: ALB/GLOB RATIO 0.9 (1.0-2.1); ALKALINE PHOSPHATASE 218 U/L (38-126); ALT/SGPT 65 U/L (9-52); AST/SGOT 42 U/L (14-36); BILIRUBIN,TOTAL 0.3 mg/dL (0.2-1.3); BLOOD UREA NITROGEN 11 mg/dL (7-17); CARBON DIOXIDE 23 mmol/L (22-30); GFR AFRICAN-AMERICAN > 60; TOTAL PROTEIN 6.4 g/dL (6.3-8.3)
[2017-05-28 08:10] LABS: CALCIUM 8.4 mg/dl (8.6-10.4); GLUCOSE,RANDOM 149 mg/dL (65-105)
[2017-05-28] MEDS: (Novolog) Insulin Aspart, Recombinant 100 u/ml 10 ml vial SC SCH ×2 (08:20→12:02)
--- NOTE | 2017-05-28 09:24 | CP.PCM.PN ---
Subjective - Date & Time of Evaluation Date of Evaluation: 05/28/17 Time of Evaluation: 09:00 - Subjective Subjective: Pulmonology Note for Dr. Salgado's Service Patient was seen and examined at bedside. Patient currently receiving duonebs treatment. Admits some dysuria and urinary frequency. Denied chills, headache, chest pain, SOB, cough abdominal pain, or n/v/d/c Objective - Vital Signs/Intake and Output Vital Signs (last 24 hours): Temp Pulse Resp BP Pulse Ox 98.9 F 77 20 152/74 H 99 05/28/17 00:00 05/28/17 00:00 05/28/17 00:00 05/28/17 00:00 05/28/17 00:00 Intake and Output: 05/28/17 05/28/17 06:59 18:59 Intake Total 340 Balance 340 - Medications Medications: Current Medications Acetaminophen (Tylenol 325mg Tab) 650 mg PO Q4 PRN PRN Reason: Fever >100.4 F Last Admin: 05/24/17 14:11 Dose: 650 mg Al Hydrox/Mg Hydrox/Simethicone (Maalox 30 Ml) 30 ml PO Q6H PRN PRN Reason: Indigestion / Heartburn Last Admin: 05/24/17 21:54 Dose: 30 ml Albuterol/Ipratropium (Duoneb 3 Mg/0.5 Mg (3 Ml) Ud) 3 ml INH RQ6 SALONI Last Admin: 05/28/17 08:25 Dose: 3 ml Benzocaine/Menthol (Cepacol Sore Throat) 1 sahra MT QID PRN PRN Reason: Sore Throat Enoxaparin Sodium (Lovenox) 40 mg SC DAILY [facility] Last Admin: 05/27/17 09:54 Dose: 40 mg Aztreonam 1 gm/ Sodium (Chloride) 100 mls @ 100 mls/hr IVPB Q8H [facility] Last Admin: 05/28/17 05:16 Dose: 100 mls/hr Insulin Aspart (Novolog) 0 unit SC ACHS SALONI PRN Reason: Protocol Last Admin: 05/28/17 08:20 Dose: Not Given Pantoprazole Sodium (Protonix Ec Tab) 40 mg PO DAILY [facility] Last Admin: 05/27/17 09:54 Dose: 40 mg - Labs Labs: 05/28/17 07:16 05/28/17 07:16 PT 14.7 SECONDS (9.7-12.2) H 05/22/17 11:49 INR 1.3 05/22/17 11:49 APTT 32 SECONDS (21-34) 05/22/17 11:49 - Additional Findings Additional findings: - Constitutional Appears: No Acute Distress - Head Exam Head Exam: NORMAL INSPECTION, NORMOCEPHALIC - Eye Exam Eye Exam: EOMI, Normal appearance, PERRL Pupil Exam: NORMAL ACCOMODATION - ENT Exam ENT Exam: Mucous Membranes Moist - Respiratory Exam Respiratory Exam: Clear to Ausculation Bilateral, NORMAL BREATHING PATTERN. absent: Rales, Rhonchi, Wheezes - Cardiovascular Exam Cardiovascular Exam: REGULAR RHYTHM, RRR, +S1, +S2 - GI/Abdominal Exam GI & Abdominal Exam: Soft, Normal Bowel Sounds. absent: Distended, Tenderness - Extremities Exam Extremities Exam: Normal Inspection. absent: Pedal Edema, Tenderness - Neurological Exam Neurological Exam: Alert, Awake, Oriented x3 - Psychiatric Exam Psychiatric exam: Normal Affect, Normal Mood - Skin Skin Exam: Dry, Intact, Normal Color, Warm Assessment and Plan - Assessment and Plan (Free Text) Plan: BECKY and COPD overlap syndrome Patient with long history of smoking and COPD Patient had a sleep study done 5 years ago, [facility] in [place], [place] FAX # [phone] which showed she has obstructive sleep apnea requiring BiPAP Pulmonary was consulted due to hypoxemia noted on ABG during admission Patient noncompliant with medicines Medical records requested from this institution - patient had a screening study suggestive of severe obstructive sleep apnea. Suggest a full overnight sleep study. This screening study was performed 2012. Copy of report is in patient's chart. Patient is to follow up with PMD - for CPAP and appropriate mask, suitable for patient. Continue nebulizer treatment CPAP at night Recommend outpatient sleep study Pyelonephritis Management as per primary team and ID Continue antibiotics Pulmonology will be signing off - Thank you for the interesting consult. Carlene Baptiste Dr., DO, PGY-1
[2017-05-28] MEDS: Enoxaparin 40 mg Syringe SC SCH (10:02)
[2017-05-28] MEDS: Pantoprazole 40 mg EC Tab PO SCH (10:03)
[2017-05-28 10:24] LABS: FOLATE 10.7 ng/mL
[2017-05-28] MEDS ORDERED: Aztreonam 1 GM in Dextrose 5% In Water 100 ML IVPB SCH (14:00)
[2017-05-28] MEDS ORDERED: Influenza Vaccine 60 mcg/0.5 mL SYR (4YR UP) IM ONE (14:15)
[2017-05-28] MEDS ORDERED: Pneumococcal 23-Valent Vaccine IM ONE (14:15)
--- NOTE | 2017-05-28 14:30 | CARD ---
APPROVED REPORT EKG Measurement Heart [id number] <Conclusion> Normal sinus rhythm Minimal voltage criteria for LVH, may be normal variant Cannot rule out Anterior infarct, age undetermined Abnormal ECG
--- NOTE | 2017-05-28 17:10 | CP.PCM.PN ---
Subjective - Date & Time of Evaluation Date of Evaluation: 05/28/17 Time of Evaluation: 11:00 - Subjective Subjective: Alert, awake, no sob or chest pains. Objective - Vital Signs/Intake and Output Vital Signs (last 24 hours): Temp Pulse Resp BP Pulse Ox 98.9 F 77 20 152/74 H 99 05/28/17 00:00 05/28/17 00:00 05/28/17 00:00 05/28/17 00:00 05/28/17 00:00 Intake and Output: 05/28/17 05/28/17 06:59 18:59 Intake Total 340 Balance 340 - Labs Labs: 05/28/17 07:16 05/28/17 07:16 PT 14.7 SECONDS (9.7-12.2) H 05/22/17 11:49 INR 1.3 05/22/17 11:49 APTT 32 SECONDS (21-34) 05/22/17 11:49 Assessment and Plan - Assessment and Plan (Free Text) Assessment: Patient is seen and examined. Alert, awake, no sob or acute distress. Discussed with DR Collazo and DR Charles Jones, cleared for discharge to home on cipro 500mg po for 10 days. Advised to follow up in the office in 1 week.
== END 2017-05-28 14:30 | disposition home or self-care (01) | DRG 872 ==
LOC: C.ER 09:59 → C.9E 16:55 → C.3T 17:46
PROVIDERS: ADMIT Internal Medicine Nephrology; ATTEND Internal Medicine Nephrology
DX: A41.51 Sepsis due to Escherichia coli [E. coli] (principal); N12 Tubulo-interstitial nephritis, not specified as acute or chronic; J44.1 Chronic obstructive pulmonary disease with (acute) exacerbation; K76.0 Fatty (change of) liver, not elsewhere classified; E86.0 Dehydration; E11.9 Type 2 diabetes mellitus without complications; D64.9 Anemia, unspecified; M35.1 Other overlap syndromes; G47.33 Obstructive sleep apnea (adult) (pediatric); R09.02 Hypoxemia; Z87.891 Personal history of nicotine dependence; Z88.0 Allergy status to penicillin; Z90.49 Acquired absence of other specified parts of digestive tract

== ENCOUNTER 2017-10-09 15:21 | Emergency (ER) | payer MEDICARE ==
[2017-10-09 15:22] VITALS: BMI 30.4
[2017-10-09] MEDS ORDERED: Sodium Chloride 0.9% 1,000 ML IV ONE (16:02)
[2017-10-09] MEDS ORDERED: DiphenhydrAMINE 50 mg/ml Inj IVP STA (16:02)
[2017-10-09] MEDS ORDERED: DiphenhydrAMINE 50 mg/ml Inj ONE (16:13)
--- NOTE | 2017-10-09 16:20 | C.PDOC ---
History Of Present Illness 62 y/o female with a PMHx of migraines, diabetes, and hyperlipidemia, presents to the ER with a headache and dizziness that started 3 days ago. No fevers at home, however patient is febrile upon arrival. Denies any associated cough, shortness of breath, or urinary symptoms. Time Seen by Provider: 10/09/17 15:55 Chief Complaint (Nursing): Headache History Per: Patient History/Exam Limitations: no limitations Onset/Duration Of Symptoms: Days (x3) Current Symptoms Are (Timing): Still Present Past Medical History Reviewed: Historical Data, Nursing Documentation, Vital Signs Vital Signs: Last Vital Signs Temp 98.4 F 10/09/17 18:14 Pulse 78 10/09/17 18:14 Resp 18 10/09/17 18:14 BP 120/62 10/09/17 18:14 Pulse Ox 100 10/09/17 18:41 - Medical History PMH: COPD (ASTHMA), Depression, Hypercholesterolemia, Migraine Surgical History: Cholecystectomy Family History: States: Unknown Family Hx - Social History Hx Alcohol Use: No Hx Substance Use: No - Immunization History Hx Tetanus Toxoid Vaccination: No Hx Influenza Vaccination: No Hx Pneumococcal Vaccination: No Review Of Systems Constitutional: Negative for: Fever, Chills Respiratory: Negative for: Cough, Shortness of Breath Genitourinary: Negative for: Dysuria, Frequency, Hematuria Neurological: Positive for: Headache, Dizziness Physical Exam - Physical Exam Appears: Non-toxic, No Acute Distress Skin: Normal Color, Warm, Dry Head: Atraumatic, Normacephalic Eye(s): bilateral: Normal Inspection, PERRL, EOMI Nose: Normal Oral Mucosa: Moist Neck: Normal ROM, Supple Chest: Symmetrical Cardiovascular: Rhythm Regular (slightly tachy), No Murmur Respiratory: Normal Breath Sounds, No Accessory Muscle Use Gastrointestinal/Abdominal: Soft, No Tenderness, No Distention Extremity: Bilateral: Atraumatic, Normal Color And Temperature, Normal ROM Neurological/Psych: Oriented x3, Normal Speech ED Course And Treatment - Laboratory Results Result Diagrams: 10/09/17 16:20 10/09/17 16:20 ECG: Interpreted By Me, Viewed By Me ECG Rhythm: Sinus Tachycardia (at 111 bpm) ECG Interpretation: Normal O2 Sat by Pulse Oximetry: 100 (RA) Pulse Ox Interpretation: Normal - Radiology CXR: Interpreted by Me, Viewed By Me CXR Interpretation: Yes: No Acute Disease Against Medical Advice - AMA Patient Left Against Medical Advice: The patient declines admission to the hospital and wishes to leave the Emergency Department. This action is against my medical advice. This decision was made with informed refusal. The patient was told that admission to the hospital is necessary. Explanation of the reasons why were discussed. The risks of leaving were explained to the patient and include, but are not limited to, worsening of known or currently unknown conditions, permanent disability and from undiagnosed or untreated conditions. The patient has the capacity to make this informed decision and understands my explanation of the current medical problem and risks of leaving. The patient voluntarily accepts these risks and signed an AMA form documenting our conversation. The patient was given the opportunity to ask questions and reconsider. The patient was encouraged to return to the Emergency Department at any time for further care. Medical Decision Making Medical Decision Making: salas, febrile in er, no mengismus neck supple. neuro intact. labs imaging pendign Time: 16:01 Initial Plan: * EKG * CMP * Troponin I * CBC * PTT * Prothrombin time * Flu swab * Urinalysis * Chest x-ray * Reglan 10 mg IVP * Benadryl 25 mg IVP * Tylenol 650 mg PO * IV fluids * CT Head W/O contrast Patient is refusing head CT. Labs reviewed: Negative troponin. Negative flu. Urine shows (+) bacteria. pt treatd for uti. continued to refuse head ct. urine shows possible infection. initally tachycardic with fever, cocern for sepssis. pt declines further assessment, wishes to go home signs ama Disposition - Disposition Referrals: [facility] [Outside] [facility] [Outside] Ruma Bull MD [Staff Provider] - Disposition: HOME/ ROUTINE Disposition Time: 18:05 Condition: UNKNOWN Additional Instructions: please follow up with your doctor. return to er with worsening symptoms or concerns. Prescriptions: Ciprofloxacin [Cipro] 500 mg PO BID #20 tab Instructions: Urinary Tract Infections in Adults, Headache, Adult, Leaving Against Medical Advice Forms: [employer] (Jordanian) - Clinical Impression Clinical Impression: Headache, UTI (urinary tract infection), Left against medical advice - Scribe Statement The provider has reviewed the documentation as recorded by the Robb Munoz Provider Attestation: All medical record entries made by the Scribe were at my direction and personally dictated by me. I have reviewed the chart and agree that the record accurately reflects my personal performance of the history, physical exam, medical decision making, and the department course for this patient. I have also personally directed, reviewed, and agree with the discharge instructions and disposition.
[2017-10-09 16:23] LABS: BASO # 0.1 K/uL (0.0-0.2); BASO % 1.1 % (0.0-2.0); EOS # 0.5 K/uL (0.0-0.7); HEMOGLOBIN 11.7 g/dL (11.0-16.0); LYMPH # 3.3 K/uL (1.0-4.3); LYMPH % 32.9 % (20.0-40.0); MEAN CELL VOLUME 78.3 fL (81.0-99.0); MEAN CORPUSCULAR HEMOGLOBIN 26.3 pg (27.0-31.0); MEAN CORPUSCULAR HGB CONC 33.6 g/dL (33.0-37.0); MEAN PLATELET VOLUME 7.1 fL (7.2-11.7); MONO # 0.6 K/uL (0.0-0.8); MONO % 5.8 % (0.0-10.0); NEUT # 5.5 K/uL (1.8-7.0); NEUT % 55.2 % (50.0-75.0); NRBC % 0.1 % (0.0-2.0); RBC 4.44 Mil/uL (3.80-5.20); RED CELL DISTRIBUTION WIDTH 15.3 % (11.5-14.5)
[2017-10-09 16:31] LABS: INR 0.9; PROTHROMBIN TIME 10.3 SECONDS (9.7-12.2)
[2017-10-09 16:35] LABS: ALB/GLOB RATIO 1.3 (1.0-2.1); ALBUMIN 4.1 g/dL (3.5-5.0); ALT/SGPT 50 U/L (9-52); AST/SGOT 28 U/L (14-36); BLOOD UREA NITROGEN 12 mg/dL (7-17); CALCIUM 9.5 mg/dl (8.6-10.4); GFR AFRICAN-AMERICAN > 60; GFR NON-AFRICAN AMERICAN > 60
[2017-10-09] MEDS ORDERED: Oxycodone/Acetaminophen 5/325 mg Tab PO STA (17:03)
--- NOTE | 2017-10-09 17:04 | RAD ---
HISTORY: chest pain COMPARISON: Chest x-ray performed 05/22/17 TECHNIQUE: Chest, one view. FINDINGS: Examination limited by habitus. LUNGS: No focal consolidation. Please note that chest x-ray has limited sensitivity for the detection of pulmonary masses. PLEURA: No significant pleural effusion identified. No definite pneumothorax . CARDIOVASCULAR: Heart size appears within normal limits. OSSEOUS STRUCTURES: Degenerative changes. VISUALIZED UPPER ABDOMEN: Unremarkable. OTHER FINDINGS: None. IMPRESSION: No acute findings identified.
[2017-10-09] MEDS ORDERED: Oxycodone/Acetaminophen 5/325 mg Tab ONE (17:10)
[2017-10-09 17:56] LABS: SQUAMOUS EPITHIAL 26 /hpf (0-5); URINE BACTERIA FEW (<OCC); URINE BILIRUBIN NEGATIVE (NEGATIVE); URINE BLOOD NEGATIVE (NEGATIVE); URINE CLARITY Hazy (Clear); URINE COLOR Yellow (YELLOW); URINE GLUCOSE (UA) NORMAL (Normal); URINE LEUKOCYTE ESTERASE 3+ Leu/uL (Negative); URINE PROTEIN NEGATIVE (NEGATIVE); URINE UROBILINOGEN NORMAL mg/dL (0.2-1.0)
[2017-10-09 18:15] VITALS: BP 120/62; PULSE 78; RESP 18; TEMP 98.4
[2017-10-09 18:20] VITALS: O2SAT 100
--- NOTE | 2017-10-12 16:36 | CARD ---
APPROVED REPORT EKG Measurement Heart [id number] <Conclusion> Sinus tachycardia Minimal voltage criteria for LVH, may be normal variant Cannot rule out Anterior infarct, age undetermined Abnormal ECG
== END 2017-10-09 18:38 | disposition home or self-care (01) ==
LOC: C.ER 15:21
DX: N39.0 Urinary tract infection, site not specified (principal); R51 Headache; E11.9 Type 2 diabetes mellitus without complications; E78.00 Pure hypercholesterolemia, unspecified; E78.5 Hyperlipidemia, unspecified
CPT/HCPCS: 71045; 80053; 81001; 84484; 85025; 85610; 85730; 87804; 96361; 96374; 96375; 99285; J1200; J2765; J7040

== ENCOUNTER → 2018-07-13 15:18 | Emergency (ER) | payer MEDICARE ==
[2018-07-13 15:19] VITALS: BMI 30.4
== END | disposition left against medical advice (07) ==
LOC: C.ER 15:18
DX: Z02.89 Encounter for other administrative examinations (principal); R10.9 Unspecified abdominal pain

== ENCOUNTER 2018-08-20 09:35 | Inpatient (IN) | payer MEDICARE ==
[2018-08-20 09:40] VITALS: BMI 31.1
[2018-08-20] MEDS ORDERED: Sodium Chloride 0.9% 1,000 ML IV ONE (10:16)
[2018-08-20] MEDS ORDERED: Sodium Chloride 0.9% 1,000 ML ONE ×2 (10:27→14:12)
[2018-08-20 10:35] LABS: BASO # 0.1 K/uL (0.0-0.2); BASO % 0.9 % (0.0-2.0); EOS # 0.2 K/uL (0.0-0.7); EOS % 1.8 % (0.0-4.0); HEMOGLOBIN 12.7 g/dL (11.0-16.0); LYMPH # 3.8 K/uL (1.0-4.3); LYMPH % 29.7 % (20.0-40.0); MEAN CORPUSCULAR HEMOGLOBIN 29.3 pg (27.0-31.0); MEAN CORPUSCULAR HGB CONC 33.7 g/dL (33.0-37.0); MEAN PLATELET VOLUME 7.1 fL (7.2-11.7); MONO # 0.8 K/uL (0.0-0.8); MONO % 6.1 % (0.0-10.0); NEUT % 61.5 % (50.0-75.0); NRBC % 0.1 % (0.0-2.0); RBC 4.34 Mil/uL (3.80-5.20); RED CELL DISTRIBUTION WIDTH 16.7 % (11.5-14.5); WHITE BLOOD COUNT 12.9 K/uL (4.8-10.8)
[2018-08-20 10:45] LABS: MEAN CELL VOLUME 86.8 fL (81.0-99.0)
[2018-08-20 10:46] LABS: SQUAMOUS EPITHIAL 20 /hpf (0-5); URINE BACTERIA OCC (<OCC); URINE BILIRUBIN 1+ (NEGATIVE); URINE BLOOD NEGATIVE (NEGATIVE); URINE CLARITY Hazy (Clear); URINE COLOR Amber (YELLOW); URINE GLUCOSE (UA) NORMAL (Normal); URINE LEUKOCYTE ESTERASE 2+ Leu/uL (Negative); URINE PROTEIN 1+ mg/dL (NEGATIVE)
--- NOTE | 2018-08-20 10:59 | C.PDOC ---
History Of Present Illness Patient is a 63 year old female who presents to the ED after being sent in by Dr. Lee, her GI, for "an infusion", does not know any more details. Patient states that she has had diarrhea for 7 months and has had abdominal pain with intermittent nausea and vomiting for 2 months. She states that she has been seeing Dr. Lee and he has "tried everything" as far as medications, none of which relieved her symptoms. Dr. Lee then did a colonoscopy and patient was diagnosed with Crohn's disease. She was started on Prednisone and Methotrexate, still with no relief. Dr. Lee then advised her to come into the ED. Patient denies fever, chills, headache, urinary symptoms, CP, SOB, or body aches. Time Seen by Provider: 08/20/18 09:58 Chief Complaint (Nursing): Abdominal Pain History Per: Patient History/Exam Limitations: no limitations Onset/Duration Of Symptoms: Other (diarrhea for 7 months. intermittent nausea and vomiting for 2 months ) Current Symptoms Are (Timing): Still Present Associated Symptoms: Nausea, Vomiting, Diarrhea. denies: Fever, Chills, Chest Pain, Urinary Symptoms, Other (headache, SOB,body aches ) Recent travel outside of the [place]: No Additional History Per: Patient Past Medical History Reviewed: Historical Data, Nursing Documentation, Vital Signs Vital Signs: Last Vital Signs Temp 98.3 F 08/20/18 09:40 Pulse 92 H 08/20/18 09:40 Resp 18 08/20/18 09:40 BP 128/81 08/20/18 09:40 Pulse Ox 100 08/20/18 09:40 - Medical History PMH: COPD (ASTHMA), Depression, Hypercholesterolemia, Migraine Surgical History: Cholecystectomy, Tonsillectomy Family History: States: Unknown Family Hx - Social History Hx Alcohol Use: No Hx Substance Use: No - Immunization History Hx Tetanus Toxoid Vaccination: No Hx Influenza Vaccination: No Hx Pneumococcal Vaccination: No Review Of Systems Constitutional: Negative for: Fever, Chills, Malaise Cardiovascular: Negative for: Chest Pain Respiratory: Negative for: Shortness of Breath Gastrointestinal: Positive for: Nausea, Vomiting, Abdominal Pain, Diarrhea Genitourinary: Negative for: Dysuria, Incontinence, Hematuria Neurological: Negative for: Headache Physical Exam - Physical Exam Appears: Non-toxic, No Acute Distress Skin: Normal Color, Warm, Dry Head: Atraumatic, Normacephalic Oral Mucosa: Moist Neck: Normal ROM, Supple Chest: Symmetrical, No Deformity Cardiovascular: Rhythm Regular, No Murmur Respiratory: Normal Breath Sounds, No Rales, No Rhonchi, No Wheezing Gastrointestinal/Abdominal: Tenderness (mild epigastric ), No Guarding, No Rebound Extremity: Normal ROM Neurological/Psych: Oriented x3, Normal Speech, Normal Cognition ED Course And Treatment - Laboratory Results Result Diagrams: 08/20/18 10:28 08/20/18 10:28 Lab Results: Urine Color [place] (YELLOW) 08/20/18 10:24 Urine Clarity Hazy (Clear) 08/20/18 10:24 Urine pH 5.0 (5.0-8.0) 08/20/18 10:24 Ur Specific [place] 1.031 (1.003-1.030) H 08/20/18 10:24 Urine Protein 1+ mg/dL (NEGATIVE) H 08/20/18 10:24 Urine Glucose (UA) Normal mg/dL (Normal) 08/20/18 10:24 Urine Ketones Trace mg/dL (NEGATIVE) 08/20/18 10:24 Urine Blood Negative (NEGATIVE) 08/20/18 10:24 Urine Nitrate Negative (NEGATIVE) 08/20/18 10:24 Urine Bilirubin 1+ (NEGATIVE) H 08/20/18 10:24 Urine Urobilinogen 2.0 mg/dL (0.2-1.0) H 08/20/18 10:24 Ur Leukocyte Esterase 2+ Jenni/uL (Negative) H 08/20/18 10:24 Urine WBC (Auto) 21 /hpf (0-5) H 08/20/18 10:24 Urine RBC (Auto) 3 /hpf (0-3) 08/20/18 10:24 Ur Squamous Epith Cells 20 /hpf (0-5) H 08/20/18 10:24 Urine Bacteria Occ (<OCC) H 08/20/18 10:24 Hyaline Casts 6-10 /lpf (0-2) H 08/20/18 10:24 O2 Sat by Pulse Oximetry: 100 (on RA) Pulse Ox Interpretation: Normal Medical Decision Making Medical Decision Making: Bloodwork, CAT A/P, Urinalysis ordered. Metronidazole 500 mg in 100 ml IVPB, Hydrocortisone (Solu-Corteff) 50mg IV, Toradol 30mg IVP, Zofran 4mg IVP, IV Fluids administered. 1058- Case discussed with Dr. Lee, GI, who would like CT abdomen/pelvis, solu- cortef Q12h, and flagyl. Admit to Dr. De La Torre. 1105- Case discussed with Dr. De La Torre who accepts patient to his service. Discussed results with patient who is amenable to admission. CT ordered and completed, results pending. Disposition - Disposition Disposition: HOSPITALIZED Disposition Time: 11:05 Condition: STABLE - Clinical Impression Clinical Impression: Crohns disease, Nausea vomiting and diarrhea, Abdominal pain - Scribe Statement The provider has reviewed the documentation as recorded by the Devonteibwalt Verdugo All medical record entries made by the Devonteibwalt were at my direction and personally dictated by me. I have reviewed the chart and agree that the record accurately reflects my personal performance of the history, physical exam, medical decision making, and the department course for this patient. I have also personally directed, reviewed, and agree with the discharge instructions and disposition.
[2018-08-20 11:01] LABS: BLOOD UREA NITROGEN 20 mg/dL (7-17); CALCIUM 9.5 mg/dl (8.6-10.4); GFR NON-AFRICAN AMERICAN > 60; LIPASE 128 U/L (23-300)
[2018-08-20] MEDS ORDERED: metroNIDAZOLE IV 500 mg/100 ml 500 MG/100 ML BAG IVPB STA (11:05)
[2018-08-20 11:15] LABS: ALB/GLOB RATIO 1.4 (1.0-2.1); ALBUMIN 4.6 g/dL (3.5-5.0); ALT/SGPT 61 U/L (9-52); AST/SGOT 49 U/L (14-36)
[2018-08-20] MEDS ORDERED: metroNIDAZOLE IV 500 mg/100 ml 500 MG/100 ML BAG ONE (11:26)
[2018-08-20] MEDS ORDERED: Iodixanol 320 MG/ML 100 ML BOTTLE IV ONE (11:40)
--- NOTE | 2018-08-20 13:08 | CP.PCM.PN ---
Subjective - Date & Time of Evaluation Date of Evaluation: 08/20/18 Time of Evaluation: 12:30 - Subjective Subjective: Medicine Progress Note for Dr. De La Torre 63 year old female with history of hypertension, hyperlipidemia, diabetes, RA, depression and recently diagnosed Crohn's disease. Patient was sent in by GI Dr. Lee for further workup. Patient reports having abdominal pain and diarrhea every day for the past 7 month (1-5 bouts/day). These diarrheas are non bloody and mostly watery. She started having intermittent nausea about 2 months ago. She states these symptoms are not triggered by food for certain activities. Patient has been seeing Dr. Lee as outpatient. A colonoscopy was performed 2 weeks ago but the patient is unclear about the results. Patient was hospitalized about 1 year ago for "E. coli in the blood" and finished a long course of antibiotics. Patient denies fever, chills, headache, shortness of breath, chest pain, urinary or fecal incontinence. PMHx: hypertension, hyperlipidemia, diabetes, RA, depression, Crohn's disease PSHx: Cholecystectomy, Tonsillectomy Allergy: Penicillins (rash) Family Hx: Father: DM, HTN, CAD s/p cabg in his 70s Social: denies alcohol or drug use, former smoker Meds: Methotrexate IM weekly, lipitor, percocet, creon, prednisone, atenolol, metformin, effexor Objective - Vital Signs/Intake and Output Vital Signs (last 24 hours): Temp Pulse Resp BP Pulse Ox 98.3 F 92 H 18 128/81 100 08/20/18 09:40 08/20/18 09:40 08/20/18 09:40 08/20/18 09:40 08/20/18 12:49 - Labs Labs: 08/20/18 10:28 08/20/18 10:28 - Constitutional Appears: Well, No Acute Distress - Head Exam Head Exam: ATRAUMATIC, NORMAL INSPECTION, NORMOCEPHALIC - Eye Exam Eye Exam: EOMI, Normal appearance, PERRL Pupil Exam: NORMAL ACCOMODATION, PERRL - Neck Exam Neck Exam: Normal Inspection - Respiratory Exam Respiratory Exam: Clear to Ausculation Bilateral, NORMAL BREATHING PATTERN. absent: Rhonchi, Wheezes, Respiratory Distress - Cardiovascular Exam Cardiovascular Exam: REGULAR RHYTHM, +S1, +S2. absent: Murmur - GI/Abdominal Exam GI & Abdominal Exam: Soft, Tenderness (epigastric). absent: Bruit, Guarding, Rigid, Organomegaly - Extremities Exam Extremities Exam: Full ROM, Normal Capillary Refill, Normal Inspection. absent: Joint Swelling, Pedal Edema - Neurological Exam Neurological Exam: Alert, Awake, Oriented x3 - Psychiatric Exam Psychiatric exam: Normal Affect, Normal Mood - Skin Skin Exam: Dry, Normal Color, Warm Assessment and Plan - Assessment and Plan (Free Text) Assessment: Abdominal pain, watery diarrhea -Likely secondary to Cronh's exacerbation -Pending CT abd results -Full lipid diet -Follow up cultures and toxins -Flagyl 500mg Q8 -Zofran Iv prn for N/V -Tramadol 50mg TID prn for pain -GI consulted, Dr. Lee help appreciated HTN -Atenolol 25mg -ASA 81mg Hyperlipidemia -Crestor 20mg Diabetes -Accucheck ACHS -Metformin 500mg daily -ISS -Hypoglycemic protocol RA -Methotrexate IM weekly (last dose 08/20/18) Depression -Effexor 150mg Prophylactic measures -Lovenox -Pepcid Case discussed with attending physician Dr. De La Torre
--- NOTE | 2018-08-20 13:11 | CT ---
Date of service: 08/20/2018 PROCEDURE: CT Abdomen and Pelvis with contrast HISTORY: abdominal pain, crohn's COMPARISON: None available TECHNIQUE: Contrast dose: 100 mL Visipaque 320 IV Radiation dose: Total exam DLP = 828.25 mGy-cm. This CT exam was performed using one or more of the following dose reduction techniques: Automated exposure control, adjustment of the mA and/or kV according to patient size, and/or use of iterative reconstruction technique. FINDINGS: LOWER THORAX: No visible consolidation, pleural effusion, or pneumothorax. Heart size appears within normal limits. Coronary artery calcifications. LIVER: Unremarkable. GALLBLADDER AND BILE DUCTS: Unremarkable. PANCREAS: Unremarkable. SPLEEN: Unremarkable. ADRENALS: Unremarkable KIDNEYS AND URETERS: The kidneys enhance symmetrically. No hydronephrosis or obstructing calculus identified. Nonobstructing right renal calculi. VASCULATURE: No aortic aneurysm. Atherosclerotic calcifications of the aorta. BOWEL: Stomach is nondistended. Lack of oral contrast limits evaluation for bowel pathology. Bowel loops appear within normal limits of caliber without evidence of obstruction. Moderate constipation. Mucosal thickening/fat within the cecal/terminal ileum wall may be seen in the setting of chronic or long-standing inflammatory bowel disease. APPENDIX: The appendix appears dilated measuring approximately 9 mm in diameter. No appreciable inflammatory changes. 2.6 x 4.2 cm lobulated fluid collection either adjacent to or arising from the appendix. PERITONEUM: No significant free fluid. No definite free air. LYMPH NODES: No bulky adenopathy identified. BLADDER: Unremarkable. REPRODUCTIVE: Unremarkable. BONES: Degenerative changes. OTHER FINDINGS: None. IMPRESSION: The appendix appears dilated measuring approximately 9 mm in diameter. No appreciable inflammatory changes. 2.6 x 4.2 cm lobulated fluid collection either adjacent to or arising from the appendix. Correlate clinically. Mucosal thickening/fat within the cecal/terminal ileum wall may be seen in the setting of chronic or long-standing inflammatory bowel disease. Moderate constipation. Additional incidental findings as above. Findings discussed with Dr. Alexis on 08/20/18 at 1:02 p.m.
[2018-08-20] MEDS ORDERED: Dextrose 50% SYRINGE Inj (50 ml) IV PRN (13:17)
[2018-08-20] MEDS ORDERED: Glucagon Recombinant 1 mg Inj IM PRN (13:17)
[2018-08-20] MEDS ORDERED: metroNIDAZOLE IV 500 mg/100 ml 500 MG/100 ML BAG IVPB SCH (14:00)
[2018-08-20] MEDS: Sodium Chloride 0.9% 1,000 ML IV SCH (14:16)
[2018-08-20] MEDS: (Novolin R) Insulin Human Regular 100 units/ml vial SC SCH ×2 (16:30→22:03)
[2018-08-20] MEDS: Oxycodone/Acetaminophen 5/325 mg Tab PO PRN (20:30)
[2018-08-20] MEDS: LIPASE/PROTEASE/AMYLASE 21,000 U ECC PO SCH (20:34)
[2018-08-20] MEDS: metroNIDAZOLE IV 500 mg/100 ml 500 MG/100 ML BAG IVPB SCH (20:35)
[2018-08-21] MEDS: Sodium Chloride 0.9% 1,000 ML IV SCH ×5 (00:37→22:05)
[2018-08-21] MEDS: metroNIDAZOLE IV 500 mg/100 ml 500 MG/100 ML BAG IVPB SCH ×3 (03:21→19:59)
[2018-08-21 06:51] LABS: ALB/GLOB RATIO 1.6 (1.0-2.1); ALT/SGPT 105 U/L (9-52); AST/SGOT 52 U/L (14-36); BLOOD UREA NITROGEN 18 mg/dL (7-17); GFR NON-AFRICAN AMERICAN > 60
[2018-08-21 06:53] LABS: BASO # 0.1 K/uL (0.0-0.2); BASO % 0.9 % (0.0-2.0); EOS # 0.1 K/uL (0.0-0.7); EOS % 0.7 % (0.0-4.0); HEMOGLOBIN 11.6 g/dL (11.0-16.0); LYMPH # 2.4 K/uL (1.0-4.3); MEAN CELL VOLUME 86.6 fL (81.0-99.0); MEAN CORPUSCULAR HGB CONC 32.4 g/dL (33.0-37.0); MEAN PLATELET VOLUME 7.1 fL (7.2-11.7); MONO # 0.6 K/uL (0.0-0.8); MONO % 5.1 % (0.0-10.0); NEUT # 7.9 K/uL (1.8-7.0); NEUT % 71.3 % (50.0-75.0); NRBC % 0.1 % (0.0-2.0); RBC 4.14 Mil/uL (3.80-5.20); RED CELL DISTRIBUTION WIDTH 17.2 % (11.5-14.5); WHITE BLOOD COUNT 11.1 K/uL (4.8-10.8)
[2018-08-21] MEDS: (Novolin R) Insulin Human Regular 100 units/ml vial SC SCH ×4 (07:50→22:05)
--- NOTE | 2018-08-21 07:54 | PN ---
DATE: 08/21/2018 LOCATION: 365, bed B. SUBJECTIVE: This is a 63-year-old female, seen and examined in rounds early this morning with recurrent episodes of abdominal pain with intense headache with persistent nausea and dyspepsia. 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 The entire chart is reviewed, including, but not limited to the most recent lab and radiology study results, current and the previous medication list. On record, the patient was seen yesterday in the emergency room on for GI consultation as requested by the admitting MD, and recently done CAT scan of the abdomen and pelvis report is seen. Today's lab results showed leukocytosis of 11.1 with normal hemoglobin and hematocrit with normal platelet count. BUN of 18 with normal creatinine. Blood glucose level 127. AST 52, ALT 105 with normal rest of lab results. PHYSICAL EXAMINATION: GENERAL: A 63-year-old female. VITAL SIGNS: Afebrile with pulse of 70, respiratory rate 20-22, blood pressure of 120/74. HEENT: Showed pale dry oral mucous membranes. Nonicteric sclerae. LUNGS: Few scattered mild crepitation. Decreased air entry at bases. HEART: Positive S1 and S2. ABDOMEN: Soft. Mildly obese with generalized tenderness and mild distention. No mass or organomegaly. No rebound tenderness or guarding. EXTREMITIES: With slight lower extremity edematous changes. No clubbing or cyanosis. NEUROLOGIC: No reported new neurological deficits, sensory or motor. IMPRESSION: 1. Re-exacerbation of inflammatory bowel disease with known history of Crohn's disease. 2. Re-exacerbation of peptic ulcer disease. 3. Known history of hyperlipidemia, migraine headache, depression as well as chronic obstructive pulmonary disease. 4. Reported history of status post tonsillectomy and cholecystectomy in the past. 5. Leukocytosis, most likely secondary to above. SUGGESTIONS: 1. Agree with your plan. 2. Upper GI with small bowel follow-through. 3. Start Solu-Cortef IV. 4. Surgical consultation. The patient may refer the later Infusion Center due to her longstanding history of Crohn disease. We will follow up closely with you. Yandy Alejandra MD
[2018-08-21] MEDS: Oxycodone/Acetaminophen 5/325 mg Tab PO PRN ×2 (08:23→15:56)
[2018-08-21] MEDS ORDERED: Home Med 1 UNIT (Atorvastatin [Lipitor] 40 MG) PO SCH (10:00)
[2018-08-21] MEDS: Venlafaxine 150 mg ER Cap PO SCH (10:05)
[2018-08-21] MEDS: Belladonna-Phenobarbital PO SCH ×3 (10:05→17:51)
[2018-08-21] MEDS: LIPASE/PROTEASE/AMYLASE 21,000 U ECC PO SCH ×2 (10:06→17:52)
[2018-08-21] MEDS: Enoxaparin 40 mg Syringe SC SCH (10:06)
[2018-08-22] MEDS: metroNIDAZOLE IV 500 mg/100 ml 500 MG/100 ML BAG IVPB SCH ×3 (03:13→19:12)
[2018-08-22] MEDS: Sodium Chloride 0.9% 1,000 ML IV SCH ×2 (04:30→19:30)
[2018-08-22] MEDS: (Novolin R) Insulin Human Regular 100 units/ml vial SC SCH ×4 (07:35→21:54)
[2018-08-22 08:35] LABS: BASO # 0.1 K/uL (0.0-0.2); BASO % 0.6 % (0.0-2.0); EOS # 0.1 K/uL (0.0-0.7); EOS % 0.7 % (0.0-4.0); HEMOGLOBIN 11.1 g/dL (11.0-16.0); LYMPH % 34.1 % (20.0-40.0); MEAN CELL VOLUME 87.9 fL (81.0-99.0); MEAN CORPUSCULAR HEMOGLOBIN 29.1 pg (27.0-31.0); MEAN CORPUSCULAR HGB CONC 33.1 g/dL (33.0-37.0); MEAN PLATELET VOLUME 7.2 fL (7.2-11.7); MONO # 0.3 K/uL (0.0-0.8); MONO % 3.2 % (0.0-10.0); NEUT # 5.4 K/uL (1.8-7.0); NEUT % 61.4 % (50.0-75.0); RBC 3.8 Mil/uL (3.80-5.20); RED CELL DISTRIBUTION WIDTH 16.9 % (11.5-14.5); WHITE BLOOD COUNT 8.8 K/uL (4.8-10.8)
[2018-08-22] MEDS ORDERED: Bisacodyl 5mg EC Tab PO ONE (08:45)
[2018-08-22 09:02] LABS: ALB/GLOB RATIO 1.6 (1.0-2.1); ALBUMIN 3.8 g/dL (3.5-5.0); ALT/SGPT 83 U/L (9-52); AST/SGOT 33 U/L (14-36); BLOOD UREA NITROGEN 13 mg/dL (7-17); CALCIUM 8.6 mg/dl (8.6-10.4); GFR NON-AFRICAN AMERICAN > 60
[2018-08-22] MEDS: LIPASE/PROTEASE/AMYLASE 21,000 U ECC PO SCH ×2 (09:23→17:40)
[2018-08-22] MEDS: Venlafaxine 150 mg ER Cap PO SCH (09:23)
[2018-08-22] MEDS: Belladonna-Phenobarbital PO SCH ×3 (09:23→17:40)
[2018-08-22] MEDS: Enoxaparin 40 mg Syringe SC SCH (09:24)
[2018-08-22] MEDS: Oxycodone/Acetaminophen 5/325 mg Tab PO PRN ×3 (09:39→23:57)
--- NOTE | 2018-08-22 14:11 | PN ---
DATE: 08/22/2018 LOCATION: 365, bed B. SUBJECTIVE: This 63-year-old female seen and examined in rounds with reported less abdominal pain, and denied any recent episodes of diarrhea this morning but crampy abdominal pain with less nausea and dyspepsia. No reported chest pain, palpitation or chills or fever. Most recent lab results showed blood glucose level of 113 with mild leukocytosis. Today's lab is still pending, but with mildly elevated and AST for which she had hepatitis profile to be ordered. The patient was scheduled for upper GI with small bowel follow-through, still pending. PHYSICAL EXAMINATION: GENERAL: A 63-year-old female appeared to be awake, alert, oriented. VITAL SIGNS: Afebrile with pulse of 80, respiratory rate 20-22, blood pressure 140/84. HEENT: Showed pale dry oral mucous membrane. Nonicteric sclerae. LUNGS: Few scattered crepitation. Decreased air entry at bases. HEART: Positive S1 and S2. ABDOMEN: Soft with mild generalized tenderness. No mass or organomegaly. No rebound tenderness or guarding, but mild distention with generalized slight tenderness. EXTREMITIES: Without edema, clubbing or cyanosis. NEUROLOGIC: No reported new neurological deficits of sensory or motor. No reported new focal deficits. IMPRESSION: 1. Re-exacerbation of inflammatory disease with what the patient reported as a history of Crohn's disease. 2. Abnormal liver function test to rule out hepatocellular injury with drug induced versus hepatitis versus viral hepatitis infection. 3. Peptic ulcer disease. 4. Known history of migraine headache, depression, chronic obstructive pulmonary disease. 5. Abnormal CAT scan of the abdomen and pelvis. 6. Reported history of status post cholecystectomy and tonsillectomy. 7. Hyperglycemia by recent history. SUGGESTIONS: 1. Continue current management. 2. Follow up and sedimentation rate. 3. Upper GI with small bowel follow-through. Further recommendation to follow. Yandy Alejandra MD
[2018-08-23] MEDS: Sodium Chloride 0.9% 1,000 ML IV SCH ×2 (01:30→06:29)
[2018-08-23] MEDS: metroNIDAZOLE IV 500 mg/100 ml 500 MG/100 ML BAG IVPB SCH ×3 (03:15→19:42)
[2018-08-23 06:36] LABS: BASO # 0.1 K/uL (0.0-0.2); EOS % 0.5 % (0.0-4.0); HEMOGLOBIN 11.2 g/dL (11.0-16.0); LYMPH # 2.6 K/uL (1.0-4.3); LYMPH % 29.9 % (20.0-40.0); MEAN CELL VOLUME 87.5 fL (81.0-99.0); MEAN CORPUSCULAR HEMOGLOBIN 28.7 pg (27.0-31.0); MEAN CORPUSCULAR HGB CONC 32.9 g/dL (33.0-37.0); MEAN PLATELET VOLUME 7.4 fL (7.2-11.7); MONO # 0.4 K/uL (0.0-0.8); MONO % 4.8 % (0.0-10.0); NEUT # 5.5 K/uL (1.8-7.0); NEUT % 63.8 % (50.0-75.0); RBC 3.9 Mil/uL (3.80-5.20); RED CELL DISTRIBUTION WIDTH 17.4 % (11.5-14.5); WHITE BLOOD COUNT 8.6 K/uL (4.8-10.8)
[2018-08-23 06:50] LABS: ALB/GLOB RATIO 1.7 (1.0-2.1); ALT/SGPT 126 U/L (9-52); AST/SGOT 64 U/L (14-36); BLOOD UREA NITROGEN 15 mg/dL (7-17); CALCIUM 8.8 mg/dl (8.6-10.4); GFR NON-AFRICAN AMERICAN > 60
--- NOTE | 2018-08-23 07:34 | CP.PCM.PN ---
Subjective - Date & Time of Evaluation Date of Evaluation: 08/23/18 Time of Evaluation: 07:34 - Subjective Subjective: Progress Note for Dr. De La Torre Patient seen and examined at bedside. No acute events overnight. Patient still complains of abdominal pain and feeling nauseous. She feel frustrated because no one knows the diagnosis. She is aware of GI procedure with Dr. Lee later this morning. Patient denies fever, chills, headache, shortness of breath, chest pain, vomiting, or urinary symptoms. Objective - Vital Signs/Intake and Output Vital Signs (last 24 hours): Temp Pulse Resp BP Pulse Ox 98 F 71 20 146/72 97 08/22/18 23:51 08/22/18 23:51 08/22/18 23:51 08/22/18 23:51 08/22/18 23:51 Intake and Output: 08/23/18 08/23/18 06:59 18:59 Intake Total 750 Balance 750 - Medications Medications: Current Medications Aspirin (Ecotrin) 81 mg PO DAILY [facility] Last Admin: 08/22/18 09:23 Dose: 81 mg Atenolol (Tenormin) 25 mg PO DAILY [facility] Last Admin: 08/22/18 09:24 Dose: 25 mg Belladonna/Phenobarbital () 1 tab PO TID [facility] Last Admin: 08/22/18 17:40 Dose: 1 tab Dextrose (Dextrose 50% Inj) 0 ml IV STAT PRN; Protocol PRN Reason: Hypoglycemia Protocol Dextrose (Glutose 15) 0 gm PO ONCE PRN; Protocol PRN Reason: Hypoglycemia Protocol Enoxaparin Sodium (Lovenox) 40 mg SC DAILY [facility] Last Admin: 08/22/18 09:24 Dose: 40 mg Famotidine (Pepcid) 20 mg PO DAILY [facility] Last Admin: 08/22/18 09:23 Dose: 20 mg Glucagon (Glucagen Diagnostic Kit) 0 mg IM STAT PRN; Protocol PRN Reason: Hypoglycemia Protocol Hydrocortisone Sodium Succinate (Solu-Cortef) 30 mg IV Q8H [facility] Last Admin: 08/22/18 23:51 Dose: 30 mg Dextrose (Dextrose 5% In Water 1000 Ml) 1,000 mls @ 0 mls/hr IV .Q0M PRN; Protocol PRN Reason: Hypoglycemia Protocol Sodium Chloride (Sodium Chloride 0.9%) 1,000 mls @ 100 mls/hr IV .Q10H [facility] Last Admin: 08/23/18 06:29 Dose: 100 mls/hr Metronidazole (Flagyl) 500 mg in 100 mls @ 100 mls/hr IVPB Q8H [facility]; Protocol Last Admin: 08/23/18 03:15 Dose: 100 mls/hr Insulin Human Regular (Novolin R) 0 unit SC ACHS [facility]; Protocol Last Admin: 08/22/18 21:54 Dose: Not Given Metformin HCl (Glucophage) 500 mg PO DAILY [facility] Last Admin: 08/22/18 09:23 Dose: 500 mg Ondansetron HCl (Zofran Inj) 4 mg IVP Q12 PRN PRN Reason: Nausea/Vomiting Oxycodone/Acetaminophen (Percocet 5/325 Mg Tab) 1 tab PO Q4H PRN PRN Reason: pain Stop: 08/23/18 17:28 Last Admin: 08/22/18 23:57 Dose: 1 tab Pantoprazole Sodium (Protonix Inj) 40 mg IVP Q12H [facility] Last Admin: 08/22/18 19:28 Dose: 40 mg Prednisone (Prednisone Tab) 5 mg PO BID [facility] Last Admin: 08/22/18 17:40 Dose: 5 mg Rosuvastatin Calcium (Crestor) 20 mg PO HS [facility] Last Admin: 08/22/18 21:53 Dose: 20 mg Tramadol HCl (Ultram) 50 mg PO TID PRN PRN Reason: Pain, severe (8-10) Venlafaxine HCl (Effexor Xr) 150 mg PO DAILY [facility] Last Admin: 08/22/18 09:23 Dose: 150 mg - Labs Labs: 08/23/18 06:25 08/23/18 06:25 - Additional Findings Additional findings: - Constitutional Appears: Well, No Acute Distress - Head Exam Head Exam: ATRAUMATIC, NORMAL INSPECTION, NORMOCEPHALIC - Eye Exam Eye Exam: EOMI, Normal appearance, PERRL Pupil Exam: NORMAL ACCOMODATION, PERRL - Neck Exam Neck Exam: Normal Inspection - Respiratory Exam Respiratory Exam: Clear to Ausculation Bilateral, NORMAL BREATHING PATTERN. absent: Rhonchi, Wheezes, Respiratory Distress - Cardiovascular Exam Cardiovascular Exam: REGULAR RHYTHM, +S1, +S2. absent: Murmur - GI/Abdominal Exam GI & Abdominal Exam: Soft, Tenderness (epigastric). absent: Bruit, Guarding, Rigid, Organomegaly - Extremities Exam Extremities Exam: Full ROM, Normal Capillary Refill, Normal Inspection. absent: Joint Swelling, Pedal Edema - Neurological Exam Neurological Exam: Alert, Awake, Oriented x3 - Psychiatric Exam Psychiatric exam: Normal Affect, Normal Mood - Skin Skin Exam: Dry, Normal Color, Warm Assessment and Plan - Assessment and Plan (Free Text) Assessment: Abdominal pain, watery diarrhea -Likely secondary to Cronh's exacerbation -CT abd shows the appendix appears dilated measuring approximately 9 mm in diameter. No appreciable inflammatory changes. 2.6 x 4.2 cm lobulated fluid collection either adjacent to or arising from the appendix. Correlate clinically. Mucosal thickening/fat within the cecal/terminal ileum wall may be seen in the setting of chronic or long-standing inflammatory bowel disease -Surgery consulted, no surgical intervention indicated -Blood and urine cultures negative for growth -Follow up C diff toxins -Follow up GI series -Flagyl 500mg Q8 -Zofran Iv prn for N/V -Tramadol 50mg TID prn for pain -GI consulted, Dr. Lee help appreciated -Hydrocortisone 30mg IV Q8 - 1 tab po TID HTN -Atenolol 25mg -ASA 81mg Hyperlipidemia -Crestor 20mg Diabetes -Accucheck ACHS -Metformin 500mg daily -ISS -Hypoglycemic protocol RA -Methotrexate IM weekly (last dose 08/20/18) Depression -Effexor 150mg Prophylactic measures -Lovenox -Pepcid Case discussed with attending physician Dr. De La Torre
[2018-08-23 07:48] LABS: HEPATITIS B SURFACE AG Negative (NEGATIVE)
[2018-08-23 07:54] LABS: HEPATITIS A IGM NEGATIVE (NEGATIVE); HEPATITIS B CORE AB NEGATIVE (NEGATIVE)
[2018-08-23 08:05] LABS: HEPATITIS C ANTIBODY NEGATIVE (NEGATIVE)
[2018-08-23] MEDS: (Novolin R) Insulin Human Regular 100 units/ml vial SC SCH ×4 (08:11→22:20)
--- NOTE | 2018-08-23 08:24 | HP ---
HISTORY OF PRESENT ILLNESS: The patient is a 63-year-old female, admitted to the hospital with chief complaint of persistent diarrhea and abdominal pain. The patient has history of diarrhea for several months, nausea, history of UTI with bacteremia with E. coli with IV antibiotics. The patient has a history of Crohn's disease, , migraine headache. PHYSICAL EXAMINATION: GENERAL: The patient is awake, alert, and oriented. VITAL SIGNS: Temperature 98, pulse 98. HEENT: Within normal limits. NECK: Supple. HEART: Regular. ABDOMEN: Soft. EXTREMITIES: No edema. IMPRESSION: The patient presents with persistent diarrhea, Crohn's colitis, Clostridium difficile colitis, collagenous colitis. At this point, put on IV fluids, IV Flagyl, Gastrointestinal evaluation. Haven De La Torre MD
[2018-08-23] MEDS ORDERED: Barium Sulfate for Susp 96% w/w 176g Bottle PR ONE (09:04)
[2018-08-23] MEDS ORDERED: Barium Sulfate for Susp 98% w/w 340g Bottle ONE (09:04)
[2018-08-23] MEDS: Venlafaxine 150 mg ER Cap PO SCH ×2 (09:55→11:01)
[2018-08-23] MEDS: Belladonna-Phenobarbital PO SCH ×4 (09:55→18:00)
[2018-08-23] MEDS: Enoxaparin 40 mg Syringe SC SCH (09:55)
[2018-08-23] MEDS: LIPASE/PROTEASE/AMYLASE 21,000 U ECC PO SCH ×3 (09:56→18:00)
[2018-08-23] MEDS: Oxycodone/Acetaminophen 5/325 mg Tab PO PRN ×2 (10:57→18:00)
--- NOTE | 2018-08-23 12:07 | CP.PCM.PN ---
Subjective - Date & Time of Evaluation Date of Evaluation: 08/23/18 Time of Evaluation: 12:06 - Subjective Subjective: seen at request and discussion with Dr Lee no plans for any immediate surgery Objective - Vital Signs/Intake and Output Vital Signs (last 24 hours): Temp Pulse Resp BP Pulse Ox 97.8 F 65 20 187/73 H 99 08/23/18 07:00 08/23/18 07:00 08/23/18 07:00 08/23/18 07:00 08/23/18 07:00 Intake and Output: 08/23/18 08/23/18 06:59 18:59 Intake Total 750 800 Balance 750 800 - Medications Medications: Current Medications Aspirin (Ecotrin) 81 mg PO DAILY [facility] Last Admin: 08/23/18 10:58 Dose: 81 mg Atenolol (Tenormin) 25 mg PO DAILY [facility] Last Admin: 08/23/18 11:06 Dose: 25 mg Belladonna/Phenobarbital () 1 tab PO TID [facility] Last Admin: 08/23/18 10:59 Dose: 1 tab Dextrose (Dextrose 50% Inj) 0 ml IV STAT PRN; Protocol PRN Reason: Hypoglycemia Protocol Dextrose (Glutose 15) 0 gm PO ONCE PRN; Protocol PRN Reason: Hypoglycemia Protocol Enoxaparin Sodium (Lovenox) 40 mg SC DAILY [facility] Last Admin: 08/23/18 09:55 Dose: Not Given Famotidine (Pepcid) 20 mg PO DAILY [facility] Last Admin: 08/23/18 10:58 Dose: 20 mg Glucagon (Glucagen Diagnostic Kit) 0 mg IM STAT PRN; Protocol PRN Reason: Hypoglycemia Protocol Hydrocortisone Sodium Succinate (Solu-Cortef) 30 mg IV Q8H [facility] Last Admin: 08/23/18 08:29 Dose: 30 mg Dextrose (Dextrose 5% In Water 1000 Ml) 1,000 mls @ 0 mls/hr IV .Q0M PRN; Protocol PRN Reason: Hypoglycemia Protocol Sodium Chloride (Sodium Chloride 0.9%) 1,000 mls @ 100 mls/hr IV .Q10H [facility] Last Admin: 08/23/18 06:29 Dose: 100 mls/hr Metronidazole (Flagyl) 500 mg in 100 mls @ 100 mls/hr IVPB Q8H [facility]; Protocol Last Admin: 08/23/18 03:15 Dose: 100 mls/hr Insulin Human Regular (Novolin R) 0 unit SC ACHS [facility]; Protocol Last Admin: 08/23/18 08:11 Dose: Not Given Metformin HCl (Glucophage) 500 mg PO DAILY [facility] Last Admin: 08/23/18 10:58 Dose: 500 mg Ondansetron HCl (Zofran Inj) 4 mg IVP Q12 PRN PRN Reason: Nausea/Vomiting Oxycodone/Acetaminophen (Percocet 5/325 Mg Tab) 1 tab PO Q4H PRN PRN Reason: pain Stop: 08/23/18 17:28 Last Admin: 08/23/18 10:57 Dose: 1 tab Pantoprazole Sodium (Protonix Inj) 40 mg IVP Q12H [facility] Last Admin: 08/23/18 08:29 Dose: 40 mg Prednisone (Prednisone Tab) 5 mg PO BID [facility] Last Admin: 08/23/18 11:00 Dose: 5 mg Rosuvastatin Calcium (Crestor) 20 mg PO HS [facility] Last Admin: 08/22/18 21:53 Dose: 20 mg Tramadol HCl (Ultram) 50 mg PO TID PRN PRN Reason: Pain, severe (8-10) Venlafaxine HCl (Effexor Xr) 150 mg PO DAILY [facility] Last Admin: 08/23/18 11:01 Dose: 150 mg - Labs Labs: 08/23/18 06:25 08/23/18 06:25
--- NOTE | 2018-08-23 12:09 | PN ---
DATE: 08/23/2018 LOCATION: 365, bed B. SUBJECTIVE: This 63-year-old female, seen and examined in rounds with less abdominal pain and less bowel movement. No chest pain, palpitation or significant shortness of breath. The patient is very upset, very anxious and somewhat nervous. Entire chart is reviewed and today's lab results showed normal CBC with increased blood glucose level 116, AST 64, ALT 126, could be related to medication-induced. Stool workup is still negative and hepatitis profile reported to be negative. Upper GI with small bowel follow-through is performed with results still pending. PHYSICAL EXAMINATION: GENERAL: A 63-year-old female. VITAL SIGNS: Afebrile with pulse of 68, respiratory rate 20 to 22 with blood pressure of 174/70. HEENT: Showed pale dry oral mucoid membrane. Nonicteric sclerae. LUNGS: Few scattered crepitation. Decreased air entry at bases. HEART: Positive S1 and S2. ABDOMEN: Soft with slight distention with mild generalized tenderness. No mass or organomegaly. No rebound tenderness or guarding. EXTREMITIES: Without significant clubbing, cyanosis or edema. NEUROLOGIC: No reported new neurological deficits, sensory or motor. IMPRESSION: 1. Re-exacerbation of inflammatory bowel disease. 2. Possible appendicitis, secondary to abnormal CAT scan of the abdomen and pelvis. 3. Peptic ulcer disease. 4. Abnormal liver function tests, most likely secondary to mild hepatocellular injury. 5. Known history of migraine headache, depression, chronic obstructive pulmonary disease. 6. Status post cholecystectomy and tonsillectomy. 7. Episodes of hyperglycemia, most likely secondary to steroid-induced. SUGGESTIONS: 1. Continue current management. 2. May start Remicade through the infusion center 3. Surgical consultation. 4. Awaiting sedimentation rate and the official report of the upper GI with small bowel follow-through. Further recommendation also to follow. Yandy Alejandra MD
--- NOTE | 2018-08-23 12:49 | RAD ---
Date of service: 08/23/2018 PROCEDURE: Upper GI with small bowel series. HISTORY: Inflammatory bowel disease. COMPARISON: CT scan dated 08/20/2018 TECHNIQUE: Fluoroscopic evaluation of the stomach and small bowel was performed following administration of oral contrast. FINDINGS: Esophagus: Tortuous distal esophagus with some mucosal thickening. Hiatal hernia: Small. Reflux: Severe gastroesophageal reflux to the level of the thoracic inlet. Stomach: Thickening of the proximal gastric mucosa which may represent gastritis. Small bowel: Thickening of the distal ileum/terminal ileum which may be related to underlying inflammatory bowel disease. Clinical correlation. IMPRESSION: 1. Thickening of the distal ileum/terminal ileum which may be related to underlying inflammatory bowel disease. Clinical correlation. 2. Tortuous distal esophagus with some mucosal thickening. 3. Small hiatal hernia. 4. Severe gastroesophageal reflux to the level of the thoracic inlet. 5. Thickening of the proximal gastric mucosa which may represent gastritis. Correlation with upper GI endoscopy may be helpful if clinically indicated.
[2018-08-24] MEDS: metroNIDAZOLE IV 500 mg/100 ml 500 MG/100 ML BAG IVPB SCH ×3 (04:13→21:20)
[2018-08-24] MEDS: Oxycodone/Acetaminophen 5/325 mg Tab PO PRN ×3 (05:56→19:20)
[2018-08-24 07:01] LABS: BASO # 0.1 K/uL (0.0-0.2); BASO % 0.8 % (0.0-2.0); EOS # 0.1 K/uL (0.0-0.7); EOS % 0.6 % (0.0-4.0); HEMOGLOBIN 11.8 g/dL (11.0-16.0); LYMPH # 2.7 K/uL (1.0-4.3); LYMPH % 29.3 % (20.0-40.0); MEAN CELL VOLUME 86.8 fL (81.0-99.0); MEAN CORPUSCULAR HGB CONC 33.4 g/dL (33.0-37.0); MEAN PLATELET VOLUME 7.3 fL (7.2-11.7); MONO # 0.4 K/uL (0.0-0.8); MONO % 4.7 % (0.0-10.0); NEUT # 5.9 K/uL (1.8-7.0); NEUT % 64.6 % (50.0-75.0); RBC 4.05 Mil/uL (3.80-5.20); RED CELL DISTRIBUTION WIDTH 16.5 % (11.5-14.5); WHITE BLOOD COUNT 9.2 K/uL (4.8-10.8)
[2018-08-24 07:31] LABS: ALB/GLOB RATIO 1.5 (1.0-2.1); ALBUMIN 3.9 g/dL (3.5-5.0); ALT/SGPT 190 U/L (9-52); AST/SGOT 92 U/L (14-36); BLOOD UREA NITROGEN 15 mg/dL (7-17); GFR NON-AFRICAN AMERICAN > 60
[2018-08-24] MEDS: (Novolin R) Insulin Human Regular 100 units/ml vial SC SCH ×4 (07:51→22:00)
[2018-08-24] MEDS: Enoxaparin 40 mg Syringe SC SCH (10:09)
[2018-08-24] MEDS: LIPASE/PROTEASE/AMYLASE 21,000 U ECC PO SCH ×2 (10:10→17:23)
[2018-08-24] MEDS: Belladonna-Phenobarbital PO SCH ×3 (10:10→17:23)
[2018-08-24] MEDS: Venlafaxine 150 mg ER Cap PO SCH (10:11)
--- NOTE | 2018-08-24 13:52 | CP.PCM.PN ---
Subjective - Date & Time of Evaluation Date of Evaluation: 08/24/18 Time of Evaluation: 10:00 - Subjective Subjective: Progress Note for Dr. De La Torre Patient seen and examined at bedside. No acute events overnight. Patient still complains some of abdominal pain and feeling nauseous. Colonoscopy reports from [facility] reviewed with patient in detail as there were no mentions of IBD (copy in patient's chart). Patient denies fever, chills, headache, shortness of breath, chest pain, vomiting, or urinary symptoms. Objective - Vital Signs/Intake and Output Vital Signs (last 24 hours): Temp Pulse Resp BP Pulse Ox 97.7 F 61 20 160/78 H 97 08/24/18 07:00 08/24/18 07:00 08/24/18 07:00 08/24/18 07:00 08/24/18 07:00 Intake and Output: 08/24/18 08/24/18 06:59 18:59 Intake Total 700 Output Total 400 Balance 300 - Medications Medications: Current Medications Aspirin (Ecotrin) 81 mg PO DAILY [facility] Last Admin: 08/24/18 10:10 Dose: 81 mg Atenolol (Tenormin) 25 mg PO DAILY [facility] Last Admin: 08/24/18 10:15 Dose: 25 mg Belladonna/Phenobarbital () 1 tab PO TID [facility] Last Admin: 08/24/18 10:10 Dose: 1 tab Dextrose (Dextrose 50% Inj) 0 ml IV STAT PRN; Protocol PRN Reason: Hypoglycemia Protocol Dextrose (Glutose 15) 0 gm PO ONCE PRN; Protocol PRN Reason: Hypoglycemia Protocol Enoxaparin Sodium (Lovenox) 40 mg SC DAILY [facility] Last Admin: 08/24/18 10:09 Dose: 40 mg Famotidine (Pepcid) 20 mg PO DAILY [facility] Last Admin: 08/24/18 10:10 Dose: 20 mg Glucagon (Glucagen Diagnostic Kit) 0 mg IM STAT PRN; Protocol PRN Reason: Hypoglycemia Protocol Hydrocortisone Sodium Succinate (Solu-Cortef) 30 mg IV Q8H [facility] Last Admin: 08/24/18 08:22 Dose: 30 mg Metronidazole (Flagyl) 500 mg in 100 mls @ 100 mls/hr IVPB Q8H [facility]; Protocol Last Admin: 08/24/18 10:45 Dose: 100 mls/hr Insulin Human Regular (Novolin R) 0 unit SC ACHS [facility]; Protocol Last Admin: 08/24/18 12:19 Dose: 3 u Metformin HCl (Glucophage) 500 mg PO DAILY [facility] Last Admin: 08/24/18 10:10 Dose: 500 mg Ondansetron HCl (Zofran Inj) 4 mg IVP Q12 PRN PRN Reason: Nausea/Vomiting Oxycodone/Acetaminophen (Percocet 5/325 Mg Tab) 1 tab PO Q4H PRN PRN Reason: Pain, moderate (4-7) Stop: 08/26/18 18:01 Last Admin: 08/24/18 05:56 Dose: 1 tab Pantoprazole Sodium (Protonix Inj) 40 mg IVP Q12H [facility] Last Admin: 08/24/18 08:21 Dose: 40 mg Prednisone (Prednisone Tab) 5 mg PO BID [facility] Last Admin: 08/24/18 10:11 Dose: 5 mg Rosuvastatin Calcium (Crestor) 20 mg PO HS [facility] Last Admin: 08/23/18 21:04 Dose: 20 mg Tramadol HCl (Ultram) 50 mg PO TID PRN PRN Reason: Pain, severe (8-10) Venlafaxine HCl (Effexor Xr) 150 mg PO DAILY [facility] Last Admin: 08/24/18 10:11 Dose: 150 mg - Labs Labs: 08/24/18 06:53 08/24/18 06:53 - Additional Findings Additional findings: - Constitutional Appears: Well, No Acute Distress - Head Exam Head Exam: ATRAUMATIC, NORMAL INSPECTION, NORMOCEPHALIC - Eye Exam Eye Exam: EOMI, Normal appearance, PERRL Pupil Exam: NORMAL ACCOMODATION, PERRL - Neck Exam Neck Exam: Normal Inspection - Respiratory Exam Respiratory Exam: Clear to Ausculation Bilateral, NORMAL BREATHING PATTERN. absent: Rhonchi, Wheezes, Respiratory Distress - Cardiovascular Exam Cardiovascular Exam: REGULAR RHYTHM, +S1, +S2. absent: Murmur - GI/Abdominal Exam GI & Abdominal Exam: Soft, Tenderness (epigastric). absent: Bruit, Guarding, Ri gid, Organomegaly - Extremities Exam Extremities Exam: Full ROM, Normal Capillary Refill, Normal Inspection. absent: Joint Swelling, Pedal Edema - Neurological Exam Neurological Exam: Alert, Awake, Oriented x3 - Psychiatric Exam Psychiatric exam: Normal Affect, Normal Mood - Skin Skin Exam: Dry, Normal Color, Warm Assessment and Plan - Assessment and Plan (Free Text) Assessment: Abdominal pain, watery diarrhea -Likely secondary to IBS vs IBD -Diarrhea resolved -CT abd shows the appendix appears dilated measuring approximately 9 mm in diameter. No appreciable inflammatory changes. 2.6 x 4.2 cm lobulated fluid collection either adjacent to or arising from the appendix. Correlate clinically. Mucosal thickening/fat within the cecal/terminal ileum wall may be seen in the setting of chronic or long-standing inflammatory bowel disease -GI series performed on 08/23 shows thickening of the distal ileum which may be related to IBD. Severe GERD, small hiatal hernia, and gastritis. -Surgery consulted, no surgical intervention indicated at this time -Blood and urine cultures negative for growth -Follow up C diff toxins, stool culture -Flagyl 500mg Q8 -Zofran Iv prn for N/V -Tramadol 50mg TID prn for pain -GI consulted, Dr. Lee help appreciated -Hydrocortisone 30mg IV Q8 - 1 tab po TID HTN -Atenolol 25mg -ASA 81mg Hyperlipidemia -Crestor 20mg Diabetes -Accucheck ACHS -Metformin 500mg daily -ISS -Hypoglycemic protocol RA -Methotrexate IM weekly (last dose 08/20/18) Depression -Effexor 150mg Prophylactic measures -Lovenox -Pepcid Case discussed with attending physician Dr. De La Torre
--- NOTE | 2018-08-24 17:59 | CP.PCM.PN ---
Subjective - Date & Time of Evaluation Date of Evaluation: 08/24/18 Time of Evaluation: 17:57 - Subjective Subjective: Patient is frustrated. She had 2 semi-solid BMs today. Tolerating diet. Afebrile, HDS. Objective - Vital Signs/Intake and Output Vital Signs (last 24 hours): Temp Pulse Resp BP Pulse Ox 98.8 F 73 20 168/88 H 96 08/24/18 16:00 08/24/18 16:00 08/24/18 16:00 08/24/18 16:00 08/24/18 16:00 Intake and Output: 08/24/18 08/24/18 06:59 18:59 Intake Total 700 580 Output Total 400 Balance 300 580 - Medications Medications: Current Medications Aspirin (Ecotrin) 81 mg PO DAILY [facility] Last Admin: 08/24/18 10:10 Dose: 81 mg Atenolol (Tenormin) 25 mg PO DAILY [facility] Last Admin: 08/24/18 10:15 Dose: 25 mg Belladonna/Phenobarbital () 1 tab PO TID [facility] Last Admin: 08/24/18 17:23 Dose: 1 tab Dextrose (Dextrose 50% Inj) 0 ml IV STAT PRN; Protocol PRN Reason: Hypoglycemia Protocol Dextrose (Glutose 15) 0 gm PO ONCE PRN; Protocol PRN Reason: Hypoglycemia Protocol Enoxaparin Sodium (Lovenox) 40 mg SC DAILY [facility] Last Admin: 08/24/18 10:09 Dose: 40 mg Famotidine (Pepcid) 20 mg PO DAILY [facility] Last Admin: 08/24/18 10:10 Dose: 20 mg Glucagon (Glucagen Diagnostic Kit) 0 mg IM STAT PRN; Protocol PRN Reason: Hypoglycemia Protocol Hydrocortisone Sodium Succinate (Solu-Cortef) 30 mg IV Q8H [facility] Last Admin: 08/24/18 14:35 Dose: 30 mg Metronidazole (Flagyl) 500 mg in 100 mls @ 100 mls/hr IVPB Q8H [facility]; Protocol Last Admin: 08/24/18 10:45 Dose: 100 mls/hr Insulin Human Regular (Novolin R) 0 unit SC ACHS [facility]; Protocol Last Admin: 08/24/18 17:23 Dose: 3 u Metformin HCl (Glucophage) 500 mg PO DAILY [facility] Last Admin: 08/24/18 10:10 Dose: 500 mg Ondansetron HCl (Zofran Inj) 4 mg IVP Q12 PRN PRN Reason: Nausea/Vomiting Oxycodone/Acetaminophen (Percocet 5/325 Mg Tab) 1 tab PO Q4H PRN PRN Reason: Pain, moderate (4-7) Stop: 08/26/18 18:01 Last Admin: 08/24/18 14:32 Dose: 1 tab Pantoprazole Sodium (Protonix Inj) 40 mg IVP Q12H [facility] Last Admin: 08/24/18 08:21 Dose: 40 mg Prednisone (Prednisone Tab) 5 mg PO BID [facility] Last Admin: 08/24/18 17:23 Dose: 5 mg Rosuvastatin Calcium (Crestor) 20 mg PO HS [facility] Last Admin: 08/23/18 21:04 Dose: 20 mg Tramadol HCl (Ultram) 50 mg PO TID PRN PRN Reason: Pain, severe (8-10) Venlafaxine HCl (Effexor Xr) 150 mg PO DAILY [facility] Last Admin: 08/24/18 10:11 Dose: 150 mg - Labs Labs: 08/24/18 06:53 08/24/18 06:53 - Constitutional Appears: Non-toxic, No Acute Distress - Respiratory Exam Respiratory Exam: Clear to Ausculation Bilateral, NORMAL BREATHING PATTERN - Cardiovascular Exam Cardiovascular Exam: REGULAR RHYTHM, +S1, +S2 - GI/Abdominal Exam GI & Abdominal Exam: Soft, Tenderness, Normal Bowel Sounds. absent: Organomegaly - Rectal Exam Rectal Exam: NORMAL INSPECTION - Extremities Exam Extremities Exam: Full ROM, Normal Inspection - Neurological Exam Neurological Exam: Alert, Awake, Oriented x3 - Psychiatric Exam Psychiatric exam: Normal Affect, Normal Mood - Skin Skin Exam: Normal Color, Warm Assessment and Plan - Assessment and Plan (Free Text) Assessment: #Suspected Crohns Colitis #Reported fluid mass ~2.6 x 4.2cm, near appendix #Elevated liver tests #Hiatal hernia #RA #DM PLAN: -CT, GI series reviewed with evidence of TI inflammatory changes -Elevated could be due to recently added methotrexate for RA -Avoid hepatotoxic medications -PENDING U/S -STOP pancrease -Obtain endoscopy records and biopsy results -Need to optimize steroids. She is getting solu-Cortef and prednisone. Change to prednisone 30mg daily. This will eventually need to be titrated down. There is concern regarding the fluid collection near the appendix. She has no fever, WBC or acute tenderness of her abdomen. Continue to monitor. -follow up surgery recommendations. -PPI PO daily -Diet for diarrhea, abdominal pain Case discuss with Dr. Lee, see attestation
[2018-08-25] MEDS: metroNIDAZOLE IV 500 mg/100 ml 500 MG/100 ML BAG IVPB SCH ×3 (04:00→19:05)
[2018-08-25 06:14] LABS: BASO % 0.5 % (0.0-2.0); EOS # 0.1 K/uL (0.0-0.7); EOS % 1.1 % (0.0-4.0); HEMOGLOBIN 11.4 g/dL (11.0-16.0); LYMPH # 3.6 K/uL (1.0-4.3); MEAN CELL VOLUME 86.6 fL (81.0-99.0); MEAN CORPUSCULAR HEMOGLOBIN 28.6 pg (27.0-31.0); MEAN PLATELET VOLUME 7.3 fL (7.2-11.7); MONO # 0.7 K/uL (0.0-0.8); MONO % 6.9 % (0.0-10.0); NEUT % 57.5 % (50.0-75.0); NRBC % 0.1 % (0.0-2.0); RBC 3.97 Mil/uL (3.80-5.20); RED CELL DISTRIBUTION WIDTH 17.3 % (11.5-14.5); WHITE BLOOD COUNT 10.5 K/uL (4.8-10.8)
[2018-08-25 06:36] LABS: ALB/GLOB RATIO 1.8 (1.0-2.1); ALBUMIN 3.9 g/dL (3.5-5.0); ALT/SGPT 188 U/L (9-52); AST/SGOT 79 U/L (14-36); BLOOD UREA NITROGEN 18 mg/dL (7-17); CALCIUM 8.9 mg/dl (8.6-10.4); GFR NON-AFRICAN AMERICAN > 60
--- NOTE | 2018-08-25 07:00 | CP.PCM.PN ---
Subjective - Date & Time of Evaluation Date of Evaluation: 08/25/18 Time of Evaluation: 07:00 - Subjective Subjective: PGY2- Progress Note for Dr. De La Torre Patient seen and examined at bedside an in no acute distress. Patient is frustrated because she says she still has the same abdominal pain and wants to know why. Patient had two soft bowel movements yesterday, but nothing today. Patient denies fever, chills, headache, shortness of breath, chest pain, vomiting, or urinary symptoms. Objective - Vital Signs/Intake and Output Vital Signs (last 24 hours): Temp Pulse Resp BP Pulse Ox 98.8 F 73 20 168/88 H 96 08/24/18 16:00 08/24/18 16:00 08/24/18 16:00 08/24/18 16:00 08/24/18 16:00 Intake and Output: 08/24/18 08/25/18 18:59 06:59 Intake Total 580 600 Output Total 600 Balance 580 0 - Medications Medications: Current Medications Aspirin (Ecotrin) 81 mg PO DAILY [facility] Last Admin: 08/24/18 10:10 Dose: 81 mg Atenolol (Tenormin) 25 mg PO DAILY [facility] Last Admin: 08/24/18 10:15 Dose: 25 mg Dextrose (Dextrose 50% Inj) 0 ml IV STAT PRN; Protocol PRN Reason: Hypoglycemia Protocol Dextrose (Glutose 15) 0 gm PO ONCE PRN; Protocol PRN Reason: Hypoglycemia Protocol Enoxaparin Sodium (Lovenox) 40 mg SC DAILY [facility] Last Admin: 08/24/18 10:09 Dose: 40 mg Glucagon (Glucagen Diagnostic Kit) 0 mg IM STAT PRN; Protocol PRN Reason: Hypoglycemia Protocol Metronidazole (Flagyl) 500 mg in 100 mls @ 100 mls/hr IVPB Q8H [facility]; Protocol Last Admin: 08/25/18 04:00 Dose: 100 mls/hr Insulin Human Regular (Novolin R) 0 unit SC ACHS [facility]; Protocol Last Admin: 08/24/18 17:23 Dose: 3 u Metformin HCl (Glucophage) 500 mg PO DAILY [facility] Last Admin: 08/24/18 10:10 Dose: 500 mg Ondansetron HCl (Zofran Inj) 4 mg IVP Q12 PRN PRN Reason: Nausea/Vomiting Oxycodone/Acetaminophen (Percocet 5/325 Mg Tab) 1 tab PO Q4H PRN PRN Reason: Pain, moderate (4-7) Stop: 08/26/18 18:01 Last Admin: 08/24/18 19:20 Dose: 1 tab Pantoprazole Sodium (Protonix Ec Tab) 40 mg PO DAILY [facility] Prednisone (Prednisone Tab) 30 mg PO DAILY [facility] Rosuvastatin Calcium (Crestor) 20 mg PO HS [facility] Last Admin: 08/24/18 21:26 Dose: 20 mg Tramadol HCl (Ultram) 50 mg PO TID PRN PRN Reason: Pain, severe (8-10) Venlafaxine HCl (Effexor Xr) 150 mg PO DAILY [facility] Last Admin: 08/24/18 10:11 Dose: 150 mg - Labs Labs: 08/25/18 06:04 08/25/18 06:04 - Additional Findings Additional findings: - Constitutional Appears: Well, No Acute Distress - Head Exam Head Exam: ATRAUMATIC, NORMAL INSPECTION, NORMOCEPHALIC - Eye Exam Eye Exam: EOMI, Normal appearance, PERRL Pupil Exam: NORMAL ACCOMODATION, PERRL - Neck Exam Neck Exam: Normal Inspection - Respiratory Exam Respiratory Exam: Clear to Ausculation Bilateral, NORMAL BREATHING PATTERN. a bsent: Rhonchi, Wheezes, Respiratory Distress - Cardiovascular Exam Cardiovascular Exam: REGULAR RHYTHM, +S1, +S2. absent: Murmur - GI/Abdominal Exam GI & Abdominal Exam: Soft, Tenderness (epigastric). absent: Bruit, Guarding, Rigid, Organomegaly - Extremities Exam Extremities Exam: Full ROM, Normal Capillary Refill, Normal Inspection. absent: Joint Swelling, Pedal Edema - Neurological Exam Neurological Exam: Alert, Awake, Oriented x3 - Psychiatric Exam Psychiatric exam: Normal Affect, Normal Mood - Skin Skin Exam: Dry, Normal Color, Warm Assessment and Plan - Assessment and Plan (Free Text) Assessment: Abdominal pain, watery diarrhea -Likely secondary to IBS vs IBD -Diarrhea resolved Imaging: -CT abd shows the appendix appears dilated measuring approximately 9 mm in diameter. No appreciable inflammatory changes. 2.6 x 4.2 cm lobulated fluid collection either adjacent to or arising from the appendix. Correlate clinically. Mucosal thickening/fat within the cecal/terminal ileum wall may be seen in the setting of chronic or long-standing inflammatory bowel disease -GI series performed on 1/21 shows thickening of the distal ileum which may be related to IBD. Severe GERD, small hiatal hernia, and gastritis. -Abdominal U/S (08/24/18): hepatic steatosis likely though other infiltrative process is not completely excluded. Mild hepatomegaly with liver otherwise unremarkable. prior cholecystectomy. normal caliber CBD 5.4mm. limited visualization of the pancreas -Surgery consulted, no surgical intervention indicated at this time -Blood and urine cultures negative for growth -Previous endoscopy/pathology records report inflammatory changes at cecum/TI h owever biopsies did not show evidence of pathology -GI consulted, Dr. Lee help appreciated -EGD tomorrow 08/26/18 meds: -Flagyl 500mg Q8 -Zofran ivp prn for N/V -Tramadol 50mg TID prn for pain -Percocet 1 tab q4h prn for pain -Prednisone 30mg po daily -Protonix 40mg po daily HTN -Atenolol 25mg -ASA 81mg Hyperlipidemia -Crestor 20mg Diabetes -Accucheck ACHS -Metformin 500mg daily -ISS -Hypoglycemic protocol RA -Methotrexate IM weekly (last dose 08/20/18) Depression -Effexor 150mg Prophylactic measures -Lovenox 40 mg sc daily -Protonix 40mg po daily Discussed with Dr. De La Torre
[2018-08-25] MEDS: Oxycodone/Acetaminophen 5/325 mg Tab PO PRN ×3 (08:00→21:07)
[2018-08-25] MEDS: (Novolin R) Insulin Human Regular 100 units/ml vial SC SCH ×4 (08:01→21:38)
[2018-08-25] MEDS: Pantoprazole 40 mg EC Tab PO SCH (09:17)
[2018-08-25] MEDS: Venlafaxine 150 mg ER Cap PO SCH (09:17)
[2018-08-25] MEDS: Enoxaparin 40 mg Syringe SC SCH (09:18)
--- NOTE | 2018-08-25 11:02 | US ---
Date of service: 08/24/2018 HISTORY: abnormal LFTs COMPARISON: None. TECHNIQUE: Sonographic evaluation of the abdomen. FINDINGS: LIVER: Measures 18.0 cm. Somewhat increased echogenicity of the liver parenchyma. Mild hepatomegaly noted. No mass. No intrahepatic bile duct dilatation. Normal directional blood flow at the main portal and hepatic veins. GALLBLADDER: Prior cholecystectomy. COMMON BILE DUCT: Measures 5.4 mm. No stones. No dilatation. PANCREAS: The body of the pancreas appears unremarkable with the remainder obscured by overlying bowel gas. RIGHT KIDNEY: Measures 11.3cm. Normal echogenicity. No calculus, mass, or hydronephrosis. LEFT KIDNEY: Measures 11.1cm. Normal echogenicity. No calculus, mass, or hydronephrosis. SPLEEN: Normal in size and contour. No mass. AORTA: No aneurysmal dilatation. IVC: Unremarkable. OTHER FINDINGS: None. IMPRESSION: 1. Hepatic steatosis likely though other infiltrative process is not completely excluded. Mild hepatomegaly with liver otherwise unremarkable. 2. Prior cholecystectomy. Normal caliber CBD 5.4 mm as imaged. 3. Limited visualization of the pancreas. Concordant preliminary report from [facility], 08/24/2018 8:26 p.m..
--- NOTE | 2018-08-25 14:20 | CP.PCM.PN ---
Subjective - Date & Time of Evaluation Date of Evaluation: 08/25/18 Time of Evaluation: 14:10 - Subjective Subjective: Patient states abdominal pain is slightly improved. No BMs today. Tolerating diet, no vomiting. Objective - Vital Signs/Intake and Output Vital Signs (last 24 hours): Temp Pulse Resp BP Pulse Ox 98.4 F 70 20 154/91 H 97 08/25/18 08:01 08/25/18 08:01 08/25/18 08:01 08/25/18 08:01 08/25/18 08:01 Intake and Output: 08/25/18 08/25/18 06:59 18:59 Intake Total 600 Output Total 600 Balance 0 - Medications Medications: Current Medications Aspirin (Ecotrin) 81 mg PO DAILY [facility] Last Admin: 08/25/18 09:18 Dose: 81 mg Atenolol (Tenormin) 25 mg PO DAILY [facility] Last Admin: 08/25/18 09:17 Dose: 25 mg Dextrose (Dextrose 50% Inj) 0 ml IV STAT PRN; Protocol PRN Reason: Hypoglycemia Protocol Dextrose (Glutose 15) 0 gm PO ONCE PRN; Protocol PRN Reason: Hypoglycemia Protocol Dicyclomine HCl (Bentyl) 10 mg PO QID [facility] Enoxaparin Sodium (Lovenox) 40 mg SC DAILY [facility] Last Admin: 08/25/18 09:18 Dose: 40 mg Glucagon (Glucagen Diagnostic Kit) 0 mg IM STAT PRN; Protocol PRN Reason: Hypoglycemia Protocol Metronidazole (Flagyl) 500 mg in 100 mls @ 100 mls/hr IVPB Q8H [facility]; Protocol Last Admin: 08/25/18 11:00 Dose: 100 mls/hr Insulin Human Regular (Novolin R) 0 unit SC ACHS [facility]; Protocol Last Admin: 08/25/18 12:14 Dose: Not Given Metformin HCl (Glucophage) 500 mg PO DAILY [facility] Last Admin: 08/25/18 09:17 Dose: 500 mg Ondansetron HCl (Zofran Inj) 8 mg IVP Q6H [facility] Last Admin: 08/25/18 13:28 Dose: 8 mg Oxycodone/Acetaminophen (Percocet 5/325 Mg Tab) 1 tab PO Q4H PRN PRN Reason: Pain, moderate (4-7) Stop: 08/26/18 18:01 Last Admin: 08/25/18 08:00 Dose: 1 tab Pantoprazole Sodium (Protonix Ec Tab) 40 mg PO DAILY [facility] Last Admin: 08/25/18 09:17 Dose: 40 mg Prednisone (Prednisone Tab) 30 mg PO DAILY [facility] Last Admin: 08/25/18 09:18 Dose: 30 mg Rosuvastatin Calcium (Crestor) 20 mg PO HS [facility] Last Admin: 08/24/18 21:26 Dose: 20 mg Tramadol HCl (Ultram) 50 mg PO TID PRN PRN Reason: Pain, severe (8-10) Venlafaxine HCl (Effexor Xr) 150 mg PO DAILY [facility] Last Admin: 08/25/18 09:17 Dose: 150 mg - Labs Labs: 08/25/18 06:04 08/25/18 06:04 - Constitutional Appears: Non-toxic, No Acute Distress - Head Exam Head Exam: ATRAUMATIC, NORMAL INSPECTION - Eye Exam Eye Exam: EOMI, Normal appearance - Respiratory Exam Respiratory Exam: Clear to Ausculation Bilateral, NORMAL BREATHING PATTERN - Cardiovascular Exam Cardiovascular Exam: REGULAR RHYTHM, +S1, +S2 - GI/Abdominal Exam GI & Abdominal Exam: Soft, Tenderness, Normal Bowel Sounds Additional comments: Mild tenderness to deep palpation. - Extremities Exam Extremities Exam: Normal Inspection. absent: Tenderness - Neurological Exam Neurological Exam: Alert, Awake, Oriented x3 - Psychiatric Exam Psychiatric exam: Normal Affect, Normal Mood - Skin Skin Exam: Normal Color, Warm Assessment and Plan - Assessment and Plan (Free Text) Assessment: #Possible Crohns Colitis #Reported fluid mass ~2.6 x 4.2cm, near appendix #Elevated liver tests #Hiatal hernia #RA #DM PLAN: -Previous endoscopy/pathology records report inflammatory changes at cecum/TI however biopsies did NOT show evidence of pathology. -CT, GI series reviewed with evidence of TI inflammatory changes, and moderate constipation. -U/S with hepatic steatosis -The abdominal pain is mild, non-specific and in the epigastric location. The pathology on imaging is at the RLQ however. This chronic abdominal pain could be from a more benign source such as gastroparesis or constipation (see CT scan, plus opiates use). -Elevated liver tests could be due to recently added methotrexate for RA -Avoid hepatotoxic medications -Prednisone 30mg daily. We will consider discontinuing steroids given the lack of evidence for IBD. There is also concern regarding the fluid collection near the appendix. She has no fever, WBC or acute tenderness of her abdomen. Continue to monitor. -follow up surgery recommendations. -PPI PO daily -Diet for diarrhea, abdominal pain -Plan for EGD tomorrow. Case discuss with Dr. Lee, see attestation
--- NOTE | 2018-08-25 15:59 | PN ---
DATE: 08/25/2018 LOCATION: 365, bed B. SUBJECTIVE: This 63-year-old female seen and examined in rounds today without significant clinical report or active bleeding. Reported to have significant midepigastric pain with persistent nausea, but no diarrhea, no chest pain or palpitation. The patient is off IV corticosteroids as per yesterday. The entire chart is reviewed including the most recent lab results which showed normal CBC today, increased blood glucose level 139. BUN 18, but normal creatinine, AST of 79, ALT of 188 with low total protein of 6.1. The patient had yesterday abdominal ultrasound, official report is seen. PHYSICAL EXAMINATION: GENERAL: A 63-year-old female, awake, alert and oriented, complaining of severe midepigastric pain with persistent nausea. VITAL SIGNS: Afebrile, very anxious with pulse of 76, respiratory rate 20-22, and blood pressure of 156/84. HEENT: Showed pale dry oral mucous membrane. Nonicteric sclerae. LUNGS: Few scattered crepitation. Decreased air entry at bases. HEART: Positive S1 and S2. ABDOMEN: Soft with mild generalized tenderness. No mass or organomegaly. No rebound tenderness or guarding. EXTREMITIES: Without significant clubbing, cyanosis or edema. No reported new neurological deficit, sensory or motor. No reported new focal deficits. IMPRESSION: 1. Re-exacerbation of peptic ulcer disease. 2. Abnormal CAT scan of the abdomen and pelvis with questionable inflammatory bowel disease would somewhat respond to steroid. The patient has no diarrhea. 3. Re-exacerbation of peptic ulcer disease, to rule out gastric versus duodenal ulcer with the severity of the nausea as per patient's complaint. 4. Abnormal liver function test that could be drug-induced with hepatocellular injury. 5. Known history of hyperlipidemia, hypertension, diabetes mellitus, migraine headache as well as rheumatoid arthritis with depression. SUGGESTIONS: 1. Agree with your plan. 2. Increase the dose of Zofran. 3. EGD due to the patient's persistent complaint of abdominal pain. 4. Further recommendation to follow. Yandy Alejandra MD
[2018-08-26] MEDS: (Novolin R) Insulin Human Regular 100 units/ml vial SC SCH ×2 (07:29→11:30)
[2018-08-26 08:08] LABS: INR 0.9; PROTHROMBIN TIME 10.2 SECONDS (9.7-12.2)
[2018-08-26 08:12] LABS: BASO # 0.1 K/uL (0.0-0.2); BASO % 0.8 % (0.0-2.0); EOS # 0.2 K/uL (0.0-0.7); EOS % 1.6 % (0.0-4.0); HEMOGLOBIN 11.7 g/dL (11.0-16.0); LYMPH % 42.4 % (20.0-40.0); MEAN CELL VOLUME 87.5 fL (81.0-99.0); MEAN CORPUSCULAR HEMOGLOBIN 27.9 pg (27.0-31.0); MEAN CORPUSCULAR HGB CONC 31.9 g/dL (33.0-37.0); MEAN PLATELET VOLUME 7.3 fL (7.2-11.7); MONO # 0.7 K/uL (0.0-0.8); MONO % 7.6 % (0.0-10.0); NEUT # 4.5 K/uL (1.8-7.0); NEUT % 47.6 % (50.0-75.0); NRBC % 0.1 % (0.0-2.0); RBC 4.2 Mil/uL (3.80-5.20); RED CELL DISTRIBUTION WIDTH 17.2 % (11.5-14.5); WHITE BLOOD COUNT 9.5 K/uL (4.8-10.8)
[2018-08-26 08:14] LABS: ALB/GLOB RATIO 2.2 (1.0-2.1); ALBUMIN 3.9 g/dL (3.5-5.0); ALT/SGPT 154 U/L (9-52); AST/SGOT 48 U/L (14-36); BLOOD UREA NITROGEN 18 mg/dL (7-17); CALCIUM 8.9 mg/dl (8.6-10.4); GFR NON-AFRICAN AMERICAN > 60
[2018-08-26] MEDS: Venlafaxine 150 mg ER Cap PO SCH ×2 (09:44→16:01)
[2018-08-26] MEDS: Pantoprazole 40 mg EC Tab PO SCH ×2 (09:45→16:01)
[2018-08-26] MEDS: Enoxaparin 40 mg Syringe SC SCH (09:45)
[2018-08-26] MEDS ORDERED: Propofol 10 mg/ml Inj (20 ML) ONE (12:41)
[2018-08-26] MEDS ORDERED: Lactated Ringer's 1,000 ML IV ONE (12:45)
[2018-08-26] MEDS ORDERED: Lactated Ringer's 500 ML IV SCH (12:45)
[2018-08-26 13:14] VITALS: TEMP 98.9
[2018-08-26 13:39] VITALS: BP 135/78; PULSE 62; RESP 11; O2SAT 97
[2018-08-26] MEDS ORDERED: Magnesium Citrate Oral SOL (300 ml) PO ONE (13:50)
[2018-08-26] MEDS: Oxycodone/Acetaminophen 5/325 mg Tab PO PRN (13:52)
--- NOTE | 2018-08-26 15:20 | CP.PCM.PN ---
Subjective - Date & Time of Evaluation Date of Evaluation: 08/26/18 Time of Evaluation: 07:00 - Subjective Subjective: PGY2- Progress Note for Dr. De La Torre Patient seen and examined at bedside an in no acute distress. Patient is frustrated because she says she still has the same abdominal pain and wants to know why. Patient denies fever, chills, headache, shortness of breath, chest pain, vomiting, or urinary symptoms. Objective - Vital Signs/Intake and Output Vital Signs (last 24 hours): Temp Pulse Resp BP Pulse Ox 98.9 F 62 11 L 135/78 97 08/26/18 13:00 08/26/18 13:30 08/26/18 13:30 08/26/18 13:30 08/26/18 13:30 Intake and Output: 08/26/18 08/26/18 06:59 18:59 Intake Total 500 360 Output Total 600 Balance -100 360 - Medications Medications: Current Medications Aspirin (Ecotrin) 81 mg PO DAILY [facility] Last Admin: 08/26/18 09:44 Dose: Not Given Atenolol (Tenormin) 25 mg PO DAILY [facility] Last Admin: 08/26/18 09:42 Dose: 25 mg Bisacodyl (Dulcolax) 10 mg PO ONCE ONE Stop: 08/26/18 21:01 Dextrose (Dextrose 50% Inj) 0 ml IV STAT PRN; Protocol PRN Reason: Hypoglycemia Protocol Dextrose (Glutose 15) 0 gm PO ONCE PRN; Protocol PRN Reason: Hypoglycemia Protocol Dicyclomine HCl (Bentyl) 10 mg PO QID [facility] Last Admin: 08/26/18 13:52 Dose: 10 mg Enoxaparin Sodium (Lovenox) 40 mg SC DAILY [facility] Last Admin: 08/26/18 09:45 Dose: Not Given Glucagon (Glucagen Diagnostic Kit) 0 mg IM STAT PRN; Protocol PRN Reason: Hypoglycemia Protocol Lactated Ringer's (Lactated Ringer's 500ml) 500 mls @ 75 mls/hr IV .Q6H40M [facility] Insulin Human Regular (Novolin R) 0 unit SC [facility]; Protocol Last Admin: 08/26/18 11:30 Dose: Not Given Metformin HCl (Glucophage) 500 mg PO DAILY [facility] Last Admin: 08/26/18 09:45 Dose: Not Given Ondansetron HCl (Zofran Inj) 8 mg IVP Q6H [facility] Last Admin: 08/26/18 13:45 Dose: 8 mg Oxycodone/Acetaminophen (Percocet 5/325 Mg Tab) 1 tab PO Q4H PRN PRN Reason: Pain, moderate (4-7) Stop: 08/26/18 18:01 Last Admin: 08/26/18 13:52 Dose: 1 tab Pantoprazole Sodium (Protonix Ec Tab) 40 mg PO DAILY [facility] Last Admin: 08/26/18 09:45 Dose: Not Given Prednisone (Prednisone Tab) 30 mg PO DAILY [facility] Last Admin: 08/26/18 09:45 Dose: Not Given Rosuvastatin Calcium (Crestor) 20 mg PO HS [facility] Last Admin: 08/25/18 21:06 Dose: 20 mg Tramadol HCl (Ultram) 50 mg PO TID PRN PRN Reason: Pain, severe (8-10) Venlafaxine HCl (Effexor Xr) 150 mg PO DAILY [facility] Last Admin: 08/26/18 09:44 Dose: Not Given - Labs Labs: 08/26/18 07:53 08/26/18 07:53 PT 10.2 SECONDS (9.7-12.2) 08/26/18 07:53 INR 0.9 08/26/18 07:53 - Additional Findings Additional findings: - Constitutional Appears: Well, No Acute Distress - Head Exam Head Exam: ATRAUMATIC, NORMAL INSPECTION, NORMOCEPHALIC - Eye Exam Eye Exam: EOMI, Normal appearance, PERRL Pupil Exam: NORMAL ACCOMODATION, PERRL - Neck Exam Neck Exam: Normal Inspection - Respiratory Exam Respiratory Exam: Clear to Ausculation Bilateral, NORMAL BREATHING PATTERN. absent: Rhonchi, Wheezes, Respiratory Distress - Cardiovascular Exam Cardiovascular Exam: REGULAR RHYTHM, +S1, +S2. absent: Murmur - GI/Abdominal Exam GI & Abdominal Exam: Soft, Tenderness (epigastric). absent: Bruit, Guarding, Rigid, Organomegaly - Extremities Exam Extremities Exam: Full ROM, Normal Capillary Refill, Normal Inspection. absent: Joint Swelling, Pedal Edema - Neurological Exam Neurological Exam: Alert, Awake, Oriented x3 - Psychiatric Exam Psychiatric exam: Normal Affect, Normal Mood - Skin Skin Exam: Dry, Normal Color, Warm Assessment and Plan - Assessment and Plan (Free Text) Assessment: Abdominal pain, watery diarrhea -Likely secondary to IBS vs IBD -Diarrhea resolved Imaging: -CT abd shows the appendix appears dilated measuring approximately 9 mm in diameter. No appreciable inflammatory changes. 2.6 x 4.2 cm lobulated fluid collection either adjacent to or arising from the appendix. Correlate clinically. Mucosal thickening/fat within the cecal/terminal ileum wall may be seen in the setting of chronic or long-standing inflammatory bowel disease -GI series performed on 08/23 shows thickening of the distal ileum which may be related to IBD. Severe GERD, small hiatal hernia, and gastritis. -Abdominal U/S (08/24/18): hepatic steatosis likely though other infiltrative process is not completely excluded. Mild hepatomegaly with liver otherwise unremarkable. prior cholecystectomy. normal caliber CBD 5.4mm. limited visualization of the pancreas -Endoscopy (08/26/18): gastritis, biopsied, duodenitis -Surgery consulted, no surgical intervention indicated at this time -Blood and urine cultures negative for growth -Previous endoscopy/pathology records report inflammatory changes at cecum/TI however biopsies did not show evidence of pathology -GI consulted, Dr. Lee help appreciated -EGD tomorrow 08/26/18 meds: -Flagyl 500mg Q8 -Zofran ivp prn for N/V -Tramadol 50mg TID prn for pain -Percocet 1 tab q4h prn for pain -Prednisone 30mg po daily -Protonix 40mg po daily HTN -Atenolol 25mg -ASA 81mg Hyperlipidemia -Crestor 20mg Diabetes -Accucheck ACHS -Metformin 500mg daily -ISS -Hypoglycemic protocol RA -Methotrexate IM weekly (last dose 08/20/18) Depression -Effexor 150mg Prophylactic measures -Lovenox 40 mg sc daily -Protonix 40mg po daily Discussed with Dr. De La Torre Dispo: Patient stable for discharge. Patient will need to follow up with Dr. Lee for biopsy results from endoscopy.
[2018-08-26] MEDS ORDERED: Bisacodyl 5mg EC Tab PO ONE (21:00)
[2018-08-27] MEDS ORDERED: Methotrexate 50 mg/2 ml Inj IM SCH (10:00)
--- NOTE | 2018-08-31 07:58 | DS ---
HISTORY OF PRESENT ILLNESS: The patient was admitted to the hospital with chief complaint of progressive abdominal pain. The patient was seen by the stone breaker, endoscopy, GI bleeding. The patient improved. Discharged to be followed up as outpatient. DIAGNOSES: Gastritis and colitis. Haven De La Torre MD
== END 2018-08-26 16:44 | disposition home or self-care (01) | DRG 392 ==
LOC: C.ER 09:35 → C.9E 11:07 → C.3T 15:25
PROVIDERS: ADMIT Internal Medicine Pulmonary Disease; ATTEND Internal Medicine Pulmonary Disease
PROC: 0DJ08ZZ Inspection of Upper Intestinal Tract, Via Natural or Artificial Opening Endoscopic (ICD-10-PCS; principal; 2018-08-26 12:45)
DX: K52.9 Noninfective gastroenteritis and colitis, unspecified (principal); K50.10 Crohn's disease of large intestine without complications; J44.9 Chronic obstructive pulmonary disease, unspecified; E78.00 Pure hypercholesterolemia, unspecified; G43.909 Migraine, unspecified, not intractable, without status migrainosus; M06.9 Rheumatoid arthritis, unspecified; K29.80 Duodenitis without bleeding; F32.9 Major depressive disorder, single episode, unspecified; K29.70 Gastritis, unspecified, without bleeding; K76.0 Fatty (change of) liver, not elsewhere classified; K21.9 Gastro-esophageal reflux disease without esophagitis; I10 Essential (primary) hypertension; K27.9 Peptic ulcer, site unspecified, unspecified as acute or chronic, without hemorrhage or perforation; E11.65 Type 2 diabetes mellitus with hyperglycemia; T38.0X5A Adverse effect of glucocorticoids and synthetic analogues, initial encounter; Z79.4 Long term (current) use of insulin; K44.9 Diaphragmatic hernia without obstruction or gangrene